=== PATIENT | female | born 1935 | race Caucasian/White ===

== ENCOUNTER → 2016-08-02 | Outpatient (CLI) | payer BC ==
[2016-08-02 12:50] LABS: PROTHROMBIN TIME (PATIENT) 21.5 SECONDS (9.0-12.0)
== END | disposition home or self-care (01) ==
LOC: C.LABWYN 12:39
PROVIDERS: ATTEND Internal Medicine
DX: I48.91 Unspecified atrial fibrillation (principal)

== ENCOUNTER → 2016-08-16 | Outpatient (CLI) | payer BC ==
[2016-08-16 12:31] LABS: INR 3.2 (0.9-1.1); PROTHROMBIN TIME (PATIENT) 36.3 SECONDS (9.0-12.0)
== END | disposition home or self-care (01) ==
LOC: C.LABWYN 10:50
PROVIDERS: ATTEND Internal Medicine
DX: Z51.81 Encounter for therapeutic drug level monitoring (principal); Z79.01 Long term (current) use of anticoagulants

== ENCOUNTER → 2016-08-23 | Outpatient (CLI) | payer BC ==
[2016-08-23 08:57] LABS: INR 1.5 (0.9-1.1); PROTHROMBIN TIME (PATIENT) 16.3 SECONDS (9.0-12.0)
== END | disposition home or self-care (01) ==
LOC: C.LABWYN 08:27
PROVIDERS: ATTEND Internal Medicine
DX: Z51.81 Encounter for therapeutic drug level monitoring (principal); Z79.01 Long term (current) use of anticoagulants

== ENCOUNTER → 2016-08-26 | Outpatient (CLI) | payer BC ==
[2016-08-26 08:37] LABS: INR 1.5 (0.9-1.1); PROTHROMBIN TIME (PATIENT) 16.7 SECONDS (9.0-12.0)
== END | disposition home or self-care (01) ==
LOC: C.LABWYN 07:47
PROVIDERS: ATTEND Internal Medicine
DX: I48.91 Unspecified atrial fibrillation (principal)

== ENCOUNTER → 2016-08-30 | Outpatient (CLI) | payer BC ==
[2016-08-30 12:46] LABS: INR 1.5 (0.9-1.1); PROTHROMBIN TIME (PATIENT) 15.8 SECONDS (9.0-12.0)
== END | disposition home or self-care (01) ==
LOC: C.LABWYN 14:06
PROVIDERS: ATTEND Internal Medicine
DX: I48.91 Unspecified atrial fibrillation (principal); Z79.01 Long term (current) use of anticoagulants

== ENCOUNTER → 2016-09-01 | Outpatient (CLI) | payer BC, OTHER ==
[2016-09-01 10:31] LABS: INR 1.4 (0.9-1.1); PROTHROMBIN TIME (PATIENT) 14.7 SECONDS (9.0-12.0)
== END | disposition home or self-care (01) ==
LOC: C.LABWYN 09:11
PROVIDERS: ATTEND Nurse Practitioner Adult Health
DX: I48.91 Unspecified atrial fibrillation (principal); Z51.81 Encounter for therapeutic drug level monitoring; Z79.01 Long term (current) use of anticoagulants

== ENCOUNTER → 2016-09-02 | Outpatient (CLI) | payer BC, OTHER ==
[2016-09-02 08:25] LABS: INR 1.4 (0.9-1.1); PROTHROMBIN TIME (PATIENT) 14.8 SECONDS (9.0-12.0)
== END | disposition home or self-care (01) ==
LOC: C.LABWYN 07:41
PROVIDERS: ATTEND Nurse Practitioner Adult Health
DX: I48.91 Unspecified atrial fibrillation (principal)

== ENCOUNTER → 2016-09-05 | Outpatient (CLI) | payer BC, OTHER ==
[2016-09-05 08:09] LABS: INR 1.4 (0.9-1.1); PROTHROMBIN TIME (PATIENT) 15.4 SECONDS (9.0-12.0)
== END | disposition home or self-care (01) ==
LOC: C.LABWYN 07:43
PROVIDERS: ATTEND Internal Medicine
DX: Z51.81 Encounter for therapeutic drug level monitoring (principal); Z79.01 Long term (current) use of anticoagulants; I48.91 Unspecified atrial fibrillation

== ENCOUNTER → 2016-09-08 | Outpatient (CLI) | payer BC, OTHER ==
[2016-09-08 13:10] LABS: INR 1.7 (0.9-1.1); PROTHROMBIN TIME (PATIENT) 19.1 SECONDS (9.0-12.0)
== END | disposition home or self-care (01) ==
LOC: C.LABWYN 08:00
PROVIDERS: ATTEND Internal Medicine
DX: Z51.81 Encounter for therapeutic drug level monitoring (principal); Z79.01 Long term (current) use of anticoagulants

== ENCOUNTER → 2016-09-13 | Outpatient (CLI) | payer BC, OTHER ==
[2016-09-13 09:11] LABS: INR 3.4 (0.9-1.1); PROTHROMBIN TIME (PATIENT) 38.6 SECONDS (9.0-12.0)
== END | disposition home or self-care (01) ==
LOC: C.LABWYN 08:43
PROVIDERS: ATTEND Internal Medicine
DX: I48.91 Unspecified atrial fibrillation (principal)

== ENCOUNTER → 2016-09-16 | Outpatient (CLI) | payer BC, OTHER ==
[2016-09-16 09:25] LABS: INR 1.5 (0.9-1.1); PROTHROMBIN TIME (PATIENT) 16.3 SECONDS (9.0-12.0)
== END | disposition home or self-care (01) ==
LOC: C.LABWYN 08:14
PROVIDERS: ATTEND Internal Medicine
DX: I48.91 Unspecified atrial fibrillation (principal)

== ENCOUNTER → 2016-09-22 | Outpatient (CLI) | payer BC, OTHER ==
[2016-09-22 12:36] LABS: INR 1.9 (0.9-1.1)
== END | disposition home or self-care (01) ==
LOC: C.LABWYN 12:39
PROVIDERS: ATTEND Internal Medicine
DX: I48.91 Unspecified atrial fibrillation (principal)

== ENCOUNTER → 2016-10-06 | Outpatient (CLI) | payer BC, OTHER ==
[2016-10-06 13:02] LABS: INR 1.7 (0.9-1.1); PROTHROMBIN TIME (PATIENT) 18.8 SECONDS (9.0-12.0)
--- NOTE | 2016-10-11 06:26 | CODING QUERY NO DIAGNOSIS ---
TREATMENT RENDERED WITHOUT A DIAGNOSIS To promote full compliance with coding requirements relating to patient care, physician participation is requested in all cases of electromechanical equipment assembler uncertainty. Please assist us with providing a diagnosis/symptom for the test(s) below: A diagnosis/symptom was not documented on your Order. A valid diagnosis/symptom is required to bill all insurances. Please remember that we are unable to code a diagnosis of rule out, probable, possible, questionable, or suspected. Tests that require a diagnosis: DOS: 10/06/16 * PT/INR DIAGNOSIS: * TSH DIAGNOSIS: Provider Signature: Date: Thank you Lilia Demarco [employer] Information Management Once completed, please kindly fax back to [phone] For questions please call [phone]
== END | disposition home or self-care (01) ==
LOC: C.LABWYN 12:55
PROVIDERS: ATTEND Internal Medicine
DX: I48.91 Unspecified atrial fibrillation (principal); E03.9 Hypothyroidism, unspecified

== ENCOUNTER → 2017-01-17 | Outpatient (CLI) | payer BC, OTHER ==
[2017-01-17 11:55] LABS: INR 1.7 (0.9-1.1); PROTHROMBIN TIME (PATIENT) 18.5 SECONDS (9.0-12.0)
== END | disposition home or self-care (01) ==
LOC: C.LABWYN 10:58
PROVIDERS: ATTEND Internal Medicine
DX: Z79.01 Long term (current) use of anticoagulants (principal)

== ENCOUNTER → 2017-01-19 | Outpatient (CLI) | payer BC, OTHER ==
[2017-01-19 08:54] LABS: INR 1.8 (0.9-1.1); PROTHROMBIN TIME (PATIENT) 20.3 SECONDS (9.0-12.0)
== END | disposition home or self-care (01) ==
LOC: C.LABWYN 08:11
PROVIDERS: ATTEND Internal Medicine
DX: Z51.81 Encounter for therapeutic drug level monitoring (principal); Z79.01 Long term (current) use of anticoagulants

== ENCOUNTER → 2017-01-24 | Outpatient (CLI) | payer BC, OTHER ==
[2017-01-24 10:18] LABS: INR 1.7 (0.9-1.1); PROTHROMBIN TIME (PATIENT) 18.3 SECONDS (9.0-12.0)
== END | disposition home or self-care (01) ==
LOC: C.LABWYN 08:03
PROVIDERS: ATTEND Internal Medicine
DX: Z51.81 Encounter for therapeutic drug level monitoring (principal); Z79.01 Long term (current) use of anticoagulants

== ENCOUNTER → 2017-02-09 | Outpatient (CLI) | payer OTHER ==
[2017-02-09 08:41] LABS: INR 1.9 (0.9-1.1); PROTHROMBIN TIME (PATIENT) 20.7 SECONDS (9.0-12.0)
== END | disposition home or self-care (01) ==
LOC: C.LABWYN 07:43
PROVIDERS: ATTEND Internal Medicine
DX: Z79.01 Long term (current) use of anticoagulants (principal)

== ENCOUNTER → 2017-03-14 | Outpatient (CLI) | payer OTHER ==
[2017-03-14 10:59] LABS: INR 1.3 (0.9-1.1); PROTHROMBIN TIME (PATIENT) 14.1 SECONDS (9.0-12.0)
== END | disposition home or self-care (01) ==
LOC: C.LABWYN 10:35
PROVIDERS: ATTEND Internal Medicine
DX: Z51.81 Encounter for therapeutic drug level monitoring (principal); Z79.01 Long term (current) use of anticoagulants

== ENCOUNTER → 2017-03-16 | Outpatient (CLI) | payer OTHER ==
[2017-03-16 09:58] LABS: INR 1.3 (0.9-1.1); PROTHROMBIN TIME (PATIENT) 14.2 SECONDS (9.0-12.0)
== END | disposition home or self-care (01) ==
LOC: C.LABWYN 09:37
PROVIDERS: ATTEND Internal Medicine
DX: I48.91 Unspecified atrial fibrillation (principal)

== ENCOUNTER → 2017-03-18 | Outpatient (CLI) | payer OTHER ==
[2017-03-18 11:16] LABS: INR 1.5 (0.9-1.1); PROTHROMBIN TIME (PATIENT) 16.1 SECONDS (9.0-12.0)
== END | disposition home or self-care (01) ==
LOC: C.LAB 09:30
PROVIDERS: ATTEND Internal Medicine
DX: I48.91 Unspecified atrial fibrillation (principal)

== ENCOUNTER → 2017-03-20 | Outpatient (CLI) | payer OTHER ==
[2017-03-20 09:59] LABS: INR 1.9 (0.9-1.1)
== END | disposition home or self-care (01) ==
LOC: C.LABWYN 09:36
PROVIDERS: ATTEND Internal Medicine
DX: I48.91 Unspecified atrial fibrillation (principal)

== ENCOUNTER → 2017-03-21 | Outpatient (CLI) | payer OTHER ==
[2017-03-21 08:38] LABS: INR 2.5 (0.9-1.1); PROTHROMBIN TIME (PATIENT) 28.1 SECONDS (9.0-12.0)
== END | disposition home or self-care (01) ==
LOC: C.LABWYN 07:36
PROVIDERS: ATTEND Internal Medicine
DX: I48.91 Unspecified atrial fibrillation (principal)

== ENCOUNTER → 2017-03-23 | Outpatient (CLI) | payer OTHER ==
[2017-03-23 08:50] LABS: INR 2.6 (0.9-1.1)
== END | disposition home or self-care (01) ==
LOC: C.LABWYN 08:10
PROVIDERS: ATTEND Internal Medicine
DX: I48.91 Unspecified atrial fibrillation (principal)

== ENCOUNTER → 2017-03-28 | Outpatient (CLI) | payer OTHER ==
[2017-03-28 08:06] LABS: INR 2.7 (0.9-1.1); PROTHROMBIN TIME (PATIENT) 30.1 SECONDS (9.0-12.0)
== END | disposition home or self-care (01) ==
LOC: C.LABWYN 07:34
PROVIDERS: ATTEND Internal Medicine
DX: I48.91 Unspecified atrial fibrillation (principal)

== ENCOUNTER → 2017-03-30 | Outpatient (CLI) | payer OTHER ==
[2017-03-30 08:23] LABS: INR 2.8 (0.9-1.1); PROTHROMBIN TIME (PATIENT) 31.8 SECONDS (9.0-12.0)
--- NOTE | 2017-04-08 11:51 | CODING QUERY NO DIAGNOSIS ---
TREATMENT RENDERED WITHOUT A DIAGNOSIS To promote full compliance with coding requirements relating to patient care, physician participation is requested in all cases of decorating instructor uncertainty. Please assist us with providing a diagnosis/symptom for the test(s) below: A diagnosis/symptom was not documented on your Order. A valid diagnosis/symptom is required to bill all insurances. Please remember that we are unable to code a diagnosis of rule out, probable, possible, questionable, or suspected. Tests that require a diagnosis: * PT/INR DIAGNOSIS: Provider Signature: Date: Thank you Haley Lowry [employer] Information Management Once completed, please kindly fax back to [phone] For questions please call [phone]
== END | disposition home or self-care (01) ==
LOC: C.LABWYN 07:54
PROVIDERS: ATTEND Internal Medicine
DX: I48.91 Unspecified atrial fibrillation (principal)

== ENCOUNTER → 2017-04-04 | Outpatient (CLI) | payer OTHER ==
[2017-04-04 10:52] LABS: BLOOD UREA NITROGEN 18 mg/dl (7-18); BUN/CREATININE RATIO 15.2 (10-20); CALCIUM 8.5 mg/dl (8.5-10.1); CARBON DIOXIDE 33 mmol/L (21-32); CHLORIDE 103 mmol/L (98-107); CHOLESTEROL 180 mg/dl (0-200); GLUCOSE 90 mg/dl (70-99); SODIUM 141 mmol/L (136-145)
[2017-04-04 10:55] LABS: CHOLESTEROL/HDL RATIO 3.5; HDL CHOLESTEROL 52 mg/dl; LDL CHOLESTEROL CALCULATED 93 mg/dl; TRIGLYCERIDES 176 mg/dl (0-150); VERY LOW DENSITY LIPOPROT CALC 35 mg/dl
== END | disposition home or self-care (01) ==
LOC: C.LABWYN 09:55
PROVIDERS: ATTEND Internal Medicine
DX: I48.91 Unspecified atrial fibrillation (principal); I10 Essential (primary) hypertension

== ENCOUNTER → 2017-04-11 | Outpatient (CLI) | payer OTHER ==
[2017-04-11 09:12] LABS: INR 1.6 (0.9-1.1)
== END | disposition home or self-care (01) ==
LOC: C.LABWYN 08:32
PROVIDERS: ATTEND Internal Medicine
DX: Z79.01 Long term (current) use of anticoagulants (principal)

== ENCOUNTER → 2017-04-18 | Outpatient (CLI) | payer OTHER ==
[2017-04-18 08:46] LABS: PROTHROMBIN TIME (PATIENT) 21.9 SECONDS (9.0-12.0)
== END | disposition home or self-care (01) ==
LOC: C.LABWYN 08:10
PROVIDERS: ATTEND Internal Medicine
DX: Z51.81 Encounter for therapeutic drug level monitoring (principal); Z79.01 Long term (current) use of anticoagulants

== ENCOUNTER → 2017-05-09 | Outpatient (CLI) | payer OTHER ==
[2017-05-09 09:01] LABS: INR 2.1 (0.9-1.1)
== END | disposition home or self-care (01) ==
LOC: C.LABWYN 08:27
PROVIDERS: ATTEND Internal Medicine
DX: I48.91 Unspecified atrial fibrillation (principal)

== ENCOUNTER → 2017-06-15 | Outpatient (CLI) | payer OTHER ==
[2017-06-15 09:15] LABS: INR 2.1 (0.9-1.1); PROTHROMBIN TIME (PATIENT) 22.9 SECONDS (9.0-12.0)
== END | disposition home or self-care (01) ==
LOC: C.LABWYN 08:08
PROVIDERS: ATTEND Internal Medicine
DX: I48.91 Unspecified atrial fibrillation (principal)

== ENCOUNTER → 2017-07-04 | Outpatient (CLI) | payer OTHER ==
[2017-07-04 08:32] LABS: INR 2.2 (0.9-1.1)
--- NOTE | 2017-07-07 08:15 | CODING QUERY NO DIAGNOSIS ---
TREATMENT RENDERED WITHOUT A DIAGNOSIS : 1935 To promote full compliance with coding requirements relating to patient care, physician participation is requested in all cases of sexual assault counselor uncertainty. Please assist us with providing a diagnosis/symptom for the test(s) below: A diagnosis/symptom was not documented on your Order. A valid diagnosis/symptom is required to bill all insurances. Please remember that we are unable to code a diagnosis of rule out, probable, possible, questionable, or suspected. Tests that require a diagnosis: DOS: 07/04/17 * PROTHROMBIN TIME PRO DIAGNOSIS: Provider Signature: Date: Thank you Jackie Dyson [employer] Information Management Once completed, please kindly fax back to [phone] For questions please call [phone]
== END | disposition home or self-care (01) ==
LOC: C.LABWYN 07:57
PROVIDERS: ATTEND Internal Medicine
DX: I48.91 Unspecified atrial fibrillation (principal)

== ENCOUNTER → 2017-07-25 | Outpatient (CLI) | payer OTHER ==
[2017-07-25 09:53] LABS: INR 1.8 (0.9-1.1)
== END | disposition home or self-care (01) ==
LOC: C.LABWYN 08:58
PROVIDERS: ATTEND Internal Medicine
DX: I48.91 Unspecified atrial fibrillation (principal)

== ENCOUNTER → 2017-08-15 | Outpatient (CLI) | payer OTHER ==
[2017-08-15 09:36] LABS: INR 2.2 (0.9-1.1)
== END | disposition home or self-care (01) ==
LOC: C.LABWYN 08:10
PROVIDERS: ATTEND Internal Medicine
DX: Z51.81 Encounter for therapeutic drug level monitoring (principal); Z79.01 Long term (current) use of anticoagulants

== ENCOUNTER → 2017-09-07 | Outpatient (CLI) | payer OTHER ==
[2017-09-07 09:08] LABS: INR 2.3 (0.9-1.1)
== END | disposition home or self-care (01) ==
LOC: C.LABWYN 08:37
PROVIDERS: ATTEND Internal Medicine
DX: I48.91 Unspecified atrial fibrillation (principal); Z79.01 Long term (current) use of anticoagulants

== ENCOUNTER → 2017-09-12 | Outpatient (CLI) | payer OTHER ==
[2017-09-12 08:26] LABS: INR 1.9 (0.9-1.1)
== END | disposition home or self-care (01) ==
LOC: C.LABWYN 07:51
PROVIDERS: ATTEND Internal Medicine
DX: R06.2 Wheezing (principal); R06.02 Shortness of breath

== ENCOUNTER → 2017-09-19 | Outpatient (CLI) | payer OTHER | END | disposition home or self-care (01) | LOC: C.LABWYN 08:14 | PROVIDERS: ATTEND Internal Medicine | DX: Z51.81 Encounter for therapeutic drug level monitoring (principal); Z79.01 Long term (current) use of anticoagulants ==

== ENCOUNTER → 2017-10-10 | Outpatient (CLI) | payer OTHER ==
[2017-10-10 08:13] LABS: INR 2.5 (0.9-1.1)
== END | disposition home or self-care (01) ==
LOC: C.LABWYN 07:44
PROVIDERS: ATTEND Internal Medicine
DX: Z79.01 Long term (current) use of anticoagulants (principal)

== ENCOUNTER → 2017-10-31 | Outpatient (CLI) | payer OTHER | END | disposition home or self-care (01) | LOC: C.LABWYN 07:47 | PROVIDERS: ATTEND Internal Medicine | DX: I48.91 Unspecified atrial fibrillation (principal) ==

== ENCOUNTER → 2017-11-21 | Outpatient (CLI) | payer OTHER ==
[2017-11-21 09:47] LABS: INR 1.8 (0.9-1.1)
== END | disposition home or self-care (01) ==
LOC: C.LABWYN 09:00
PROVIDERS: ATTEND Internal Medicine

== ENCOUNTER → 2017-11-28 | Outpatient (CLI) | payer OTHER ==
--- NOTE | 2017-11-30 13:26 | CODING QUERY NO DIAGNOSIS ---
TREATMENT RENDERED WITHOUT A DIAGNOSIS To promote full compliance with coding requirements relating to patient care, physician participation is requested in all cases of undercoat sprayer uncertainty. Please assist us with providing a diagnosis/symptom for the test(s) below: A diagnosis/symptom was not documented on your Order. A valid diagnosis/symptom is required to bill all insurances. Please remember that we are unable to code a diagnosis of rule out, probable, possible, questionable, or suspected. Tests that require a diagnosis: DOS: 11/28/17 (No diagnosis on attached order) * Prothrombin Time DIAGNOSIS: Provider Signature: Date: Thank you Stefani Sherman Health Information Management Once completed, please kindly fax back to [phone] For questions please call [phone]
== END | disposition home or self-care (01) ==
LOC: C.LABWYN 07:41
PROVIDERS: ATTEND Internal Medicine
DX: I48.91 Unspecified atrial fibrillation (principal)

== ENCOUNTER → 2017-12-14 | Outpatient (CLI) | payer OTHER | END | disposition home or self-care (01) | LOC: C.LABWYN 07:56 | PROVIDERS: ATTEND Internal Medicine | DX: I48.91 Unspecified atrial fibrillation (principal) ==

== ENCOUNTER → 2018-02-20 | Outpatient (CLI) | payer OTHER ==
[2018-02-20 09:01] LABS: INR 2.3 (0.9-1.1)
--- NOTE | 2018-03-01 11:19 | CODING QUERY NO DIAGNOSIS ---
TREATMENT RENDERED WITHOUT A DIAGNOSIS To promote full compliance with coding requirements relating to patient care, physician participation is requested in all cases of line puller uncertainty. Please assist us with providing a diagnosis/symptom for the test(s) below: A diagnosis/symptom was not documented on your Order. A valid diagnosis/symptom is required to bill all insurances. Please remember that we are unable to code a diagnosis of rule out, probable, possible, questionable, or suspected. Tests that require a diagnosis: DOS: 02/20/18 (Attached orders are missing diagnosis) * Prothrombin Time Profile DIAGNOSIS: Provider Signature: Date: Thank you Stefani Sherman Health Information Management Once completed, please kindly fax back to [phone] For questions please call [phone]
== END | disposition home or self-care (01) ==
LOC: C.LABWYN 08:25
PROVIDERS: ATTEND Internal Medicine
DX: I48.91 Unspecified atrial fibrillation (principal); Z79.01 Long term (current) use of anticoagulants

== ENCOUNTER → 2018-03-20 | Outpatient (CLI) | payer OTHER ==
[2018-03-20 08:36] LABS: INR 2.1 (0.9-1.1)
== END | disposition home or self-care (01) ==
LOC: C.LABWYN 08:03
PROVIDERS: ATTEND Internal Medicine
DX: I48.91 Unspecified atrial fibrillation (principal)

== ENCOUNTER 2022-02-19 13:31 | Inpatient (IN) ==
[2022-02-19 14:06] LABS: Basophils # (auto) 0.04 K/uL (0-0.2); Basophils % (auto) 0.5 %; Hematocrit (blood only) 43.2 % (34.1-44.9); Hemoglobin 12.6 g/dl (12.0-16.0); Immature Granulocytes # (auto) 0.02 K/uL (0.00-0.02); Immature Granulocytes % (auto) 0.2 %; Lymphocytes # (auto) 1.94 K/uL (1.2-3.4); Lymphocytes % (auto) 23.9 %; Mean Corpuscular Hgb Conc 29.2 g/dL (32.0-36.0); Mean Corpuscular Volume 89.1 fL (80.0-100.0); Monocytes # (auto) 1.04 K/uL (0.24-0.82); Monocytes % (auto) 12.8 %; Neutrophils # (auto) 5.09 K/uL (1.4-6.5); Neutrophils % (auto) 62.6 %; Platelet Count 187 K/uL (130-400); RDW Coefficient of Variation 17.4 % (11.5-14.5); RDW Standard Deviation 55.9 fL (36.4-46.3); Red Blood Count 4.85 M/uL (3.93-5.22); White Blood Count 8.13 K/ul (4.8-10.8)
--- NOTE | 2022-02-19 14:06 | Emergency Department Note ---
Impression & Plan Pulmonary edema, Elevated troponin, Acute non-ST elevation myocardial infarction (NSTEMI) ED Provider Note NAME: ARMEN BATES AGE: 87 SEX: F : 1935 ARRIVES VIA: Ambulance INFORMANT: Patient, EMS ED PROVIDER(S): Jcarlos Delgado DO CHIEF COMPLAINT: Shortness of breath HPI: The patient is an 87-year-old female who presented to the emergency department by ambulance for an evaluation of shortness of breath. The patient has been having ongoing symptoms over the course of the last few weeks. She presented to the emergency department from her personal shelter. She has a history of COVID-19 infection and ever since that time has been on oxygen. She normally wears 2 to 4 L nasal cannula. It had to increase her nasal cannula oxygen significantly over the last 24 hours. She was found to have saturations in the low 80s on her usual oxygen. She denies having any chest pain but she does describe a nonproductive cough and lower extremity swelling. She states symptoms are worsened with exertion as well as lying flat. The patient denies having any hemoptysis. She is been compliant with her other outpatient med ications which include warfarin. The patient has also been using bronchodilator therapy. She received Solu-Medrol and a DuoNeb prior to arrival. ROS: See above HPI for pertinent positives & negatives. A total of 10 systems reviewed and were otherwise negative. PAST MEDICAL HISTORY: See Below PAST SURGICAL HISTORY: See Below FAMILY HISTORY: See Below SOCIAL HISTORY: See Below HOME MEDICATIONS: See Below ALLERGIES: See Below VITALS: See Below PHYSICAL EXAMINATION: GENERAL: The patient is awake and alert. She is somewhat anxious appearing. EYES: The conjunctivae are clear. The pupils are round and reactive. EARS, NOSE, MOUTH AND THROAT: The nose is without any evidence of any deformity. NECK: The neck is nontender and supple. RESPIRATORY: Diminished breath sounds are noted throughout. Rales are noted at both bases. There was conversational dyspnea appreciated. CARDIOVASCULAR: Irregular heart sounds were noted auscultation. No definite murmur was noted. GASTROINTESTINAL: The abdomen is soft. Abdomen is nontender. MUSCULOSKELETAL/EXTREMITIES: There is no evidence of gross deformity full range of motion is noted in the hips and shoulders. SKIN: Skin is warm and dry. Trace pedal edema was noted bilaterally. NEUROLOGIC: Patient is awake alert and oriented x3. MEDICAL DECISION MAKING: The patient is an 87-year-old female who presented to the emergency department for an evaluation of difficulty breathing. The patient recently had COVID-19. She does wear oxygen normally at her personal shelter. They have had to increase her supplemental oxygen recently. The patient was found to have no significant change on her EKG compared to previous but her cardiac biomarker was elevated. I discussed the patient's laboratory and radiographic studies with her. She was treated with IV Lasix IV Decadron and IV antibiotics in the emergency department. Her chest x-ray could be consistent with infection ho wever given her overall picture I feel like this is more likely consistent with pulmonary edema from a cardiogenic source. The patient was feeling much better on subsequent reevaluation. She was also treated with aspirin. Triage Nursing notes reviewed. Prior medical records reviewed Vital Signs: reviewed and remarkable for hypoxia and hypertension. Differential diagnosis: Reactive airway disease, pneumonia, pneumothorax, COPD, CHF, infections, cardiac ischemia, pulmonary embolism, musculoskeletal, gastrointestinal, as well as other pathologies. ER treatment provided: See below Diagnostics interpreted by me: ECG: EKG was obtained in the emergency department. My interpretation is atrial fibrillation at 77 bpm. Poor R wave progression was noted. There is no acute ST segment abnormalities noted. This was compared to a tracing from July 22, 2020. No changes were noted. Cardiac Monitoring: An order was placed for continuous cardiac monitoring. The monitor shows a rate of 84 bpm with atrial fibrillation. Laboratory studies: As stated above and show below. Imaging studies: See below Consultation(s): I discussed this case with Dr. Mccarthy is on-call for the [facility] hospitalist group. ED COURSE: Procedures: none Critical Care: I have personally spent greater than 50 minutes of critical care time in the direct management of this patient. This includes bedside care, interpretation of diagnostic studies, and testing, discussion with consultants, patient, and family members, and other required patient management activities. This 50 minutes is in excess of all separately billable procedures. Past Med/Surg History Medical History Asthma Atrial fibrillation CKD (chronic kidney disease) stage 3, GFR 30-59 ml/min Depression with anxiety Elevated troponin HLD (hyperlipidemia) HTN (hypertension) Surgical History History of appendectomy History of foot surgery R foot Osteotomy History of partial hysterectomy Family History Sister Breast cancer Mother Hypertension Social History Smoking Status: Former smoker Second Hand Exposure: No; Hx Alcohol Use: No Hx Substance Use: No Preferred Language: Greenlandic Communication Ability: Effective Beliefs That Will Affect Care: None marital status: / Current Living Situation: Alf Current Living Situation Comment: Jess Feels Safe at Home: Yes Assistive Devices: Walker Allergies Allergies Allergy/AdvReac Type Severity Reaction Status Date / Time levofloxacin [From Levaquin] Allergy Intermediate drug Verified 02/19/22 16:40 eruption BLE atorvastatin [From Lipitor] Allergy Unknown Unknown Unverified 08/28/18 12:43 doxycycline Allergy Unknown Unknown Unverified 08/28/18 12:43 penicillin G Allergy Unknown Unknown Unverified 08/28/18 12:43 Sulfa (Sulfonamide Allergy Unknown Unknown Unverified 08/28/18 12:43 Antibiotics) Home Meds Home Medications Medication Instructions Recorded Confirmed cholecalciferol (vitamin D3) 125 5,000 unit PO QAM 08/28/18 02/19/22 mcg (5,000 unit) tablet (Vitamin D3) folic acid 1 mg tablet 1 mg PO QAM 08/28/18 02/19/22 furosemide 20 mg tablet 20 mg PO BID 08/28/18 02/19/22 levothyroxine 50 mcg tablet 50 mcg PO QAM 08/28/18 02/19/22 lisinopril 10 mg tablet 5 mg PO QAM 08/28/18 02/19/22 pravastatin 40 mg tablet 40 mg PO HS 08/28/18 02/19/22 quetiapine 50 mg tablet 50 mg PO BID 08/28/18 02/19/22 venlafaxine 150 mg 150 mg PO QAM 08/28/18 02/19/22 capsule,extended release 24 hr venlafaxine 75 mg capsule,extended 75 mg PO QAM 08/28/18 02/19/22 release 24 hr guaifenesin 600 mg tablet, 600 mg PO BID 07/22/20 02/19/22 extended release 12 hr (Mucinex) acetaminophen 325 mg tablet 650 mg PO Q4 PRN Pain 02/19/22 02/19/22 biotin 10,000 mcg disintegrating 10,000 mcg PO DAILY 02/19/22 02/19/22 tablet dextromethorphan-guaifenesin 10 5 ml PO Q4H PRN Cough 02/19/22 02/19/22 mg-100 mg/5 mL oral syrup (Tussin DM) ipratropium 0.5 mg-albuterol 3 mg 3 ml inhalation Q6H PRN Shortness 02/19/22 02/19/22 (2.5 mg base)/3 mL nebulization Of Breath Or Wheezing soln ipratropium 20 mcg-albuterol 100 1 puff inhalation .EVERY 2 HOURS 02/19/22 02/19/22 mcg/actuation mist for inhalation PRN Shortness Of Breath (Combivent Respimat) ipratropium 20 mcg-albuterol 100 1 puff inhalation BID 02/19/22 02/19/22 mcg/actuation mist for inhalation (Combivent Respimat) menthol 16 % topical liquid (Icy 1 ea topical BID PRN knee pain 02/19/22 02/19/22 Hot No Mess) metoprolol tartrate 25 mg tablet 12.5 mg PO BID 02/19/22 02/19/22 warfarin 4 mg tablet 4 mg PO QPM 02/19/22 02/19/22 Results & Data (ED) Vital Signs Vital Signs - 24 hr 02/19/22 13:24 02/19/22 13:54 02/19/22 13:54 Temperature 36.9 C Temperature Source Oral Pulse Rate 84 Pulse Rate [Apical] 82 Respiratory Rate 21 21 Respiratory Effort / Characteristics Non-Labored Respiratory Depth Normal Respiratory Pattern Regular Blood Pressure 197/99 H Blood Pressure [Left Arm] 197/99 H Blood Pressure Mean 131 Blood Pressure Mean [Left Arm] 131 Pulse Oximetry 99 94 94 Oxygen Delivery Method Nasal Cannula Nasal Cannula Nasal Cannula Oxygen Flow Rate 4 4 4 Sepsis Recent Fever Within 48 Hours No Sepsis New/Unexplained Change in Mental Status N/A Sepsis Action Taken by Nursing No Action Required 02/19/22 13:54 02/19/22 16:30 Temperature Temperature Source Pulse Rate 84 Pulse Rate [Apical] 94 H Respiratory Rate 21 21 Respiratory Effort / Characteristics Respiratory Depth Respiratory Pattern Blood Pressure Blood Pressure [Left Arm] 178/89 H Blood Pressure Mean Blood Pressure Mean [Left Arm] 118 Pulse Oximetry 94 92 Oxygen Delivery Method Nasal Cannula Nasal Cannula Oxygen Flow Rate 4 4 Sepsis Recent Fever Within 48 Hours Sepsis New/Unexplained Change in Mental Status Sepsis Action Taken by Alf Medications Current Medication List: was personally reviewed by me Laboratory Data Attestation: I reviewed the patient's lab results. Result diagrams: 02/19/22 13:49 02/19/22 13:49 Lab Results 02/19/22 02/19/22 02/19/22 Range/Units 13:43 13:49 13:49 WBC 8.13 (4.8-10.8) K/ul RBC 4.85 (3.93-5.22) M/uL Hgb 12.6 (12.0-16.0) g/dl Hct 43.2 (34.1-44.9) % MCV 89.1 (80.0-100.0) fL MCH 26.0 (25.0-34.0) pg MCHC 29.2 L (32.0-36.0) g/dL RDW Std Deviation 55.9 H (36.4-46.3) fL RDW Coeff of Bozena 17.4 H (11.5-14.5) % Plt Count 187 (130-400) K/uL MPV 10.0 (9.4-12.3) fL Immature Gran % (Auto) 0.2 % Neut % (Auto) 62.6 % Lymph % (Auto) 23.9 % Nelson % (Auto) 12.8 % Eos % (Auto) 0.0 % Baso % (Auto) 0.5 % Neut # (Auto) 5.09 (1.4-6.5) K/uL Lymph # (Auto) 1.94 (1.2-3.4) K/uL Nelson # (Auto) 1.04 H (0.24-0.82) K/uL Eos # (Auto) 0.00 (0-0.50) K/uL Baso # (Auto) 0.04 (0-0.2) K/uL Immature Gran # (Auto) 0.02 (0.00-0.02) K/uL PT 25.9 H (9.0-12.0) Seconds INR 2.6 H (0.9-1.1) APTT 32.5 H (21.0-31.0) Seconds PTT Ratio 1.2 VBG pH (7.36-7.41) VBG pCO2 (38-50) mmHg VBG pO2 mmHg VBG HCO3 mmol/L VBG O2 Saturation % VBG Base Excess mEq/L Sodium (136-145) mmol/L Potassium (3.5-5.1) mmol/L Chloride (98-107) mmol/L Carbon Dioxide (21-32) mmol/L Anion Gap (3-11) BUN (6-23) mg/dl Creatinine (0.6-1.2) mg/dl Est Cr Clr Drug Dosing ml/min Est GFR ( Amer) ml/min Est GFR (Non-Af Amer) ml/min BUN/Creatinine Ratio (10-20) Glucose (70-99(Fasting)) mg/dl Calcium (8.5-10.1) mg/dl Magnesium (1.7-2.4) mg/dl Total Bilirubin (0.2-1.0) mg/dl AST (13-39) U/L ALT (7-52) U/L Alkaline Phosphatase (34-104) U/L Troponin I High Sens (0-14) pg/ml B-Natriuretic Peptide (0-100) pg/ml Total Protein (6.0-8.3) gm/dl Albumin (3.4-5.0) gm/dl Globulin (2.5-4.0) gm/dl Albumin/Globulin Ratio (0.9-2) Procalcitonin (0-0.5) ng/ml SARS-CoV-2 (PCR) NEGATIVE (Negative) Influenza Type A (PCR) Negative (Neg) Influenza Type B (PCR) Negative (Neg) RSV (RT-PCR) Negative (Neg) 02/19/22 02/19/22 02/19/22 Range/Units 13:49 15:10 15:10 WBC (4.8-10.8) K/ul RBC (3.93-5.22) M/uL Hgb (12.0-16.0) g/dl Hct (34.1-44.9) % MCV (80.0-100.0) fL MCH (25.0-34.0) pg MCHC (32.0-36.0) g/dL RDW Std Deviation (36.4-46.3) fL RDW Coeff of Bozena (11.5-14.5) % Plt Count (130-400) K/uL MPV (9.4-12.3) fL Immature Gran % (Auto) % Neut % (Auto) % Lymph % (Auto) % Nelson % (Auto) % Eos % (Auto) % Baso % (Auto) % Neut # (Auto) (1.4-6.5) K/uL Lymph # (Auto) (1.2-3.4) K/uL Nelson # (Auto) (0.24-0.82) K/uL Eos # (Auto) (0-0.50) K/uL Baso # (Auto) (0-0.2) K/uL Immature Gran # (Auto) (0.00-0.02) K/uL PT (9.0-12.0) Seconds INR (0.9-1.1) APTT (21.0-31.0) Seconds PTT Ratio VBG pH 7.38 (7.36-7.41) VBG pCO2 73 H (38-50) mmHg VBG pO2 49 mmHg VBG HCO3 43 mmol/L VBG O2 Saturation 76.9 % VBG Base Excess 14.5 mEq/L Sodium 141 (136-145) mmol/L Potassium 4.2 (3.5-5.1) mmol/L Chloride 98 (98-107) mmol/L Carbon Dioxide 36 H (21-32) mmol/L Anion Gap 7 (3-11) BUN 24 H (6-23) mg/dl Creatinine 1.34 H (0.6-1.2) mg/dl Est Cr Clr Drug Dosing 37.2 ml/min Est GFR ( Amer) 41.8 ml/min Est GFR (Non-Af Amer) 36.0 ml/min BUN/Creatinine Ratio 17.9 (10-20) Glucose 112 H (70-99(Fasting)) mg/dl Calcium 9.1 (8.5-10.1) mg/dl Magnesium 2.2 (1.7-2.4) mg/dl Total Bilirubin 0.6 (0.2-1.0) mg/dl AST 20 (13-39) U/L ALT 16 (7-52) U/L Alkaline Phosphatase 71 (34-104) U/L Troponin I High Sens 399.5 H* (0-14) pg/ml B-Natriuretic Peptide 1754 H (0-100) pg/ml Total Protein 7.0 (6.0-8.3) gm/dl Albumin 3.7 (3.4-5.0) gm/dl Globulin 3.3 (2.5-4.0) gm/dl Albumin/Globulin Ratio 1.1 (0.9-2) Procalcitonin (0-0.5) ng/ml SARS-CoV-2 (PCR) (Negative) Influenza Type A (PCR) (Neg) Influenza Type B (PCR) (Neg) RSV (RT-PCR) (Neg) 02/19/22 Range/Units 15:15 WBC (4.8-10.8) K/ul RBC (3.93-5.22) M/uL Hgb (12.0-16.0) g/dl Hct (34.1-44.9) % MCV (80.0-100.0) fL MCH (25.0-34.0) pg MCHC (32.0-36.0) g/dL RDW Std Deviation (36.4-46.3) fL RDW Coeff of Bozena (11.5-14.5) % Plt Count (130-400) K/uL MPV (9.4-12.3) fL Immature Gran % (Auto) % Neut % (Auto) % Lymph % (Auto) % Nelson % (Auto) % Eos % (Auto) % Baso % (Auto) % Neut # (Auto) (1.4-6.5) K/uL Lymph # (Auto) (1.2-3.4) K/uL Nelson # (Auto) (0.24-0.82) K/uL Eos # (Auto) (0-0.50) K/uL Baso # (Auto) (0-0.2) K/uL Immature Gran # (Auto) (0.00-0.02) K/uL PT (9.0-12.0) Seconds INR (0.9-1.1) APTT (21.0-31.0) Seconds PTT Ratio VBG pH (7.36-7.41) VBG pCO2 (38-50) mmHg VBG pO2 mmHg VBG HCO3 mmol/L VBG O2 Saturation % VBG Base Excess mEq/L Sodium (136-145) mmol/L Potassium (3.5-5.1) mmol/L Chloride (98-107) mmol/L Carbon Dioxide (21-32) mmol/L Anion Gap (3-11) BUN (6-23) mg/dl Creatinine (0.6-1.2) mg/dl Est Cr Clr Drug Dosing ml/min Est GFR ( Amer) ml/min Est GFR (Non-Af Amer) ml/min BUN/Creatinine Ratio (10-20) Glucose (70-99(Fasting)) mg/dl Calcium (8.5-10.1) mg/dl Magnesium (1.7-2.4) mg/dl Total Bilirubin (0.2-1.0) mg/dl AST (13-39) U/L ALT (7-52) U/L Alkaline Phosphatase (34-104) U/L Troponin I High Sens (0-14) pg/ml B-Natriuretic Peptide (0-100) pg/ml Total Protein (6.0-8.3) gm/dl Albumin (3.4-5.0) gm/dl Globulin (2.5-4.0) gm/dl Albumin/Globulin Ratio (0.9-2) Procalcitonin < 0.05 (0-0.5) ng/ml SARS-CoV-2 (PCR) (Negative) Influenza Type A (PCR) (Neg) Influenza Type B (PCR) (Neg) RSV (RT-PCR) (Neg) Administered Medications Discontinued Medications Aspirin (Aspirin Chew 324 Mg) 324 mg PO NOW STA Stop: 02/19/22 15:19 Last Admin: 02/19/22 15:21 Dose: 324 mg Documented By: HNB Dexamethasone Sodium Phosphate (DexamethasonePf 10 Mg/Ml Vial) 10 mg IV NOW ONE Stop: 02/19/22 15:16 Last Admin: 02/19/22 15:22 Dose: 10 mg Documented By: HNB Furosemide (Furosemide 40 Mg/4 Ml Vial) 40 mg IV ONE ONE Stop: 02/19/22 15:16 Last Admin: 02/19/22 15:22 Dose: 40 mg Documented By: HNB Cefepime HCl (Maxipime) 2,000 mg in 20 mls @ 5 mls/min IV NOW STA; Protocol Stop: 02/19/22 15:18 Last Admin: 02/19/22 15:22 Dose: 5 mls/min Documented By: HNB Imaging Data Radiologist's Impression: Chest X-Ray 02/19/22 13:54 SINGLE VIEW CHEST CLINICAL HISTORY: Dyspnea. FINDINGS: An AP, portable, upright chest radiograph is compared to study dated 07/22/2020. The examination is degraded by portable technique and apical lordotic positioning. The heart is enlarged noting atherosclerotic calcification of the thoracic aorta. There is pulmonary vascular congestion. There are bilateral airspace opacities. Small pleural effusions are noted with dependent consolidation. No pneumothorax is seen. The skeletal structures are osteopenic. The bony thorax is grossly intact. IMPRESSION: 1. Cardiomegaly with evidence of congestive failure. 2. Bilateral airspace opacities likely represent pulmonary edema. Correlate clinically for evidence of a superimposed infectious/inflammatory pneumonitis. Radiographic follow-up to resolution is recommended. 3. Small pleural effusions. ACT 112: Negative or not required by law. Electronically signed by: Desmond Maldonado M.D. 02/19/2022 2:48 PM Discharge Plan Visit Data Chief Complaint: Shortness of Breath/Dyspnea Stated Complaint: SOB ED Provider: Jcarlos Delgado Discharge Problem: Pulmonary edema, Elevated troponin, Acute non-ST elevation myocardial in farction (NSTEMI) Patient Disposition: Being Evaluated by Hospitalist Forms Stand Alone Forms: [facility] Prescriptions Prescriptions: No Action guaifenesin [Mucinex] 600 mg Tablet Extended Release 12hr 600 mg PO BID venlafaxine 75 mg capsule,extended release 24hr 75 mg PO QAM Rx Instructions: take with 150mg to make 225mg total pravastatin 40 mg tablet 40 mg PO HS venlafaxine 150 mg capsule,extended release 24hr 150 mg PO QAM Rx Instructions: take with 75mg to make 225mg total levothyroxine 50 mcg tablet 50 mcg PO QAM lisinopril 10 mg tablet 5 mg PO QAM folic acid 1 mg Tablet 1 mg PO QAM furosemide 20 mg tablet 20 mg PO BID quetiapine 50 mg tablet 50 mg PO BID cholecalciferol (vitamin D3) [Vitamin D3] 5,000 unit Tablet 5,000 unit PO QAM warfarin 4 mg tablet 4 mg PO QPM metoprolol tartrate 25 mg tablet 12.5 mg PO BID Rx Instructions: 1/2 tablet dose Combivent Respimat 20-100 mcg/actuation mist 1 puff INHALATION BID biotin 10,000 mcg Tablet,Disintegrating 10,000 mcg PO DAILY acetaminophen 325 mg Tablet 650 mg PO Q4 MDD 3g PRN (Reason: Pain) ipratropium-albuterol 0.5 mg-3 mg(2.5 mg base)/3 mL Solution For Nebulization 3 ml INHALATION Q6H PRN (Reason: Shortness Of Breath Or Wheezing) Combivent Respimat 20-100 mcg/actuation mist 1 puff INHALATION .EVERY 2 HOURS PRN (Reason: Shortness Of Breath) dextromethorphan-guaifenesin [Tussin DM] 10-100 mg/5 mL Syrup 5 ml PO Q4H PRN (Reason: Cough) Icy Hot No Mess 16 % Liquid 1 ea TOPICAL BID PRN (Reason: knee pain) Referrals Referrals: Giana Sanchez [Primary Care Provider] -
[2022-02-19 14:26] LABS: INR 2.6 (0.9-1.1); Partial Thromboplastin Ratio 1.2; Partial Thromboplastin Time 32.5 Seconds (21.0-31.0); Prothrombin Time 25.9 Seconds (9.0-12.0)
[2022-02-19 14:34] LABS: Troponin I High Sensitivity 399.5 pg/ml (0-14)
[2022-02-19 14:45] LABS: Albumin Globulin Ratio 1.1 (0.9-2); Albumin Level 3.7 gm/dl (3.4-5.0); BUN Creatinine Ratio 17.9 (10-20); Bilirubin,Total 0.6 mg/dl (0.2-1.0); Calcium 9.1 mg/dl (8.5-10.1); Creatinine Clr Calc Pharmacy 37.2 ml/min; Est GFR (African American) 41.8 ml/min; Globulin 3.3 gm/dl (2.5-4.0); Magnesium 2.2 mg/dl (1.7-2.4); Potassium 4.2 mmol/L (3.5-5.1)
--- NOTE | 2022-02-19 14:50 | XRay Report ---
SINGLE VIEW CHEST CLINICAL HISTORY: Dyspnea. FINDINGS: An AP, portable, upright chest radiograph is compared to study dated 07/22/2020. The examin ation is degraded by portable technique and apical lordotic positioning. The heart is enlarged noting atherosclerotic calcification of the thoracic aorta. There is pulmonary vascular congestion. There a re bilateral airspace opacities. Small pleural effusions are noted with dependent consolidation. No p neumothorax is seen. The skeletal structures are osteopenic. The bony thorax is grossly intact. IMPRESSION: 1. Cardiomegaly with evidence of congestive failure. 2. Bilateral airspace opacities likely represent pulmonary edema. Correlate clinically for evidence o f a superimposed infectious/inflammatory pneumonitis. Radiographic follow-up to resolution is recomme nded. 3. Small pleural effusions. ACT 112: Negative or not required by law. Electronically signed by: Desmond Maldonado M.D. 02/19/2022 2:48 PM
[2022-02-19] MEDS ORDERED: CEFEPIME 2,000 MG/20 ML VIAL IV STA (15:15)
[2022-02-19] MEDS ORDERED: dexAMETHasone**PF** 10 MG/ML VIAL IV ONE (15:15)
[2022-02-19] MEDS ORDERED: FUROSEMIDE 40 MG/4 ML VIAL IV ONE (15:15)
[2022-02-19] MEDS ORDERED: ASPIRIN CHEW 324 MG PO STA (15:18)
[2022-02-19 15:33] LABS: Base Excess VBG 14.5 mEq/L; HCO3 VBG 43 mmol/L; Oxygen Saturation VBG 76.9 %; PCO2 VBG 73 mmHg (38-50); PO2 VBG 49 mmHg; pH VBG 7.38 (7.36-7.41)
[2022-02-19] MEDS ORDERED: ACETAMINOPHEN 325 MG TAB PO PRN (15:44)
--- NOTE | 2022-02-19 15:44 | History & Physical Report ---
Date of Service February 19, 2022 Assessment & Plan (1) Hypoxemia: (2) Dyspnea: (3) Elevated troponin I level: (4) CHF (congestive heart failure): Plan: Patient presents with shortness of breath, hypoxia Since she had COVID in June, patient has been using supplemental oxygen In ED she is on 4 L, which seems to be somewhat increased Chest x-ray significant for pulmonary vascular congestion proBNP elevated Troponin elevated Patient denies any chest pain Patient likely presents with acute CHF Received IV Lasix, IV Decadron, IV antibiotics and aspirin in the ED Will obtain procalcitonin, for now we will hold antibiotic Blood culture pending Continue with IV Lasix twice daily Obtain echocardiogram Close I's and O's monitoring Cardiology consultation in the morning History of A. fib on warfarin INR therapeutic, continue to monitor INR Continue Toprol Rate control Hypertension Patient found to be quite hypertensive in the ED Received IV Lasix, continue to closely monitor blood pressure Continue home medications CKD stage III Continue to monitor creatinine/renal function DVT ppx: On warfarin CODE STATUS DNR/DNI -discussed with the patient History of Present Illness Chief Complaint: Shortness of breath Primary Care Provider: Houston Faria 87-year-old female with history of A. fib on warfarin, hypertension, hyperlipidemia, asthma, depression/anxiety, CKD stage III, who presents with shortness of breath. Reports that she has been more short of breath for the past few weeks. She also noticed some increased swelling in her lower extremities in the past 2 weeks. Denies any chest pain. Denies any fevers, chills, dizziness or palpitations. Reports that since she had COVID in June, she has been on oxygen, and never fully recovered. Denies abdominal pain, nausea vomiting or diarrhea. In ED she was found to have elevated troponin, chest x-ray significant for pulmonary vasc. congestion and small pl. effusions. She received IV Lasix, IV Decadron, also IV antibiotics and aspirin in the ED. Blood cultures obtained. proBNP was initially pending in ED, however now it is found to be elevated. Allergies Allergy/AdvReac Type Severity Reaction Status Date / Time levofloxacin [From Levaquin] Allergy Intermediate drug Verified 02/19/22 16:40 eruption BLE atorvastatin [From Lipitor] Allergy Unknown Unknown Unverified 08/28/18 12:43 doxycycline Allergy Unknown Unknown Unverified 08/28/18 12:43 penicillin G Allergy Unknown Unknown Unverified 08/28/18 12:43 Sulfa (Sulfonamide Allergy Unknown Unknown Unverified 08/28/18 12:43 Antibiotics) Home Medications Medication Instructions Recorded Confirmed Type cholecalciferol (vitamin D3) 125 5,000 unit PO QAM 08/28/18 02/19/22 History mcg (5,000 unit) tablet (Vitamin D3) folic acid 1 mg tablet 1 mg PO QAM 08/28/18 02/19/22 History furosemide 20 mg tablet 20 mg PO BID 08/28/18 02/19/22 History levothyroxine 50 mcg tablet 50 mcg PO QAM 08/28/18 02/19/22 History lisinopril 10 mg tablet 5 mg PO QAM 08/28/18 02/19/22 History pravastatin 40 mg tablet 40 mg PO HS 08/28/18 02/19/22 History quetiapine 50 mg tablet 50 mg PO BID 08/28/18 02/19/22 History venlafaxine 150 mg 150 mg PO QAM 08/28/18 02/19/22 History capsule,extended release 24 hr venlafaxine 75 mg capsule,extended 75 mg PO QAM 08/28/18 02/19/22 History release 24 hr guaifenesin 600 mg tablet, 600 mg PO BID 07/22/20 02/19/22 History extended release 12 hr (Mucinex) acetaminophen 325 mg tablet 650 mg PO Q4 PRN Pain 02/19/22 02/19/22 History biotin 10,000 mcg disintegrating 10,000 mcg PO DAILY 02/19/22 02/19/22 History tablet dextromethorphan-guaifenesin 10 5 ml PO Q4H PRN Cough 02/19/22 02/19/22 History mg-100 mg/5 mL oral syrup (Tussin DM) ipratropium 0.5 mg-albuterol 3 mg 3 ml inhalation Q6H PRN Shortness 02/19/22 02/19/22 History (2.5 mg base)/3 mL nebulization Of Breath Or Wheezing soln ipratropium 20 mcg-albuterol 100 1 puff inhalation .EVERY 2 HOURS 02/19/22 02/19/22 History mcg/actuation mist for inhalation PRN Shortness Of Breath (Combivent Respimat) ipratropium 20 mcg-albuterol 100 1 puff inhalation BID 02/19/22 02/19/22 History mcg/actuation mist for inhalation (Combivent Respimat) menthol 16 % topical liquid (Icy 1 ea topical BID PRN knee pain 02/19/22 02/19/22 History Hot No Mess) metoprolol tartrate 25 mg tablet 12.5 mg PO BID 02/19/22 02/19/22 History warfarin 4 mg tablet 4 mg PO QPM 02/19/22 02/19/22 History Past Med/Surg History Medical History Asthma Atrial fibrillation CKD (chronic kidney disease) stage 3, GFR 30-59 ml/min Depression with anxiety Elevated troponin HLD (hyperlipidemia) HTN (hypertension) Surgical History History of appendectomy History of foot surgery R foot Osteotomy History of partial hysterectomy Family History Sister Breast cancer Mother Hypertension Social History Smoking Status: Former smoker Second Hand Exposure: No; Hx Alcohol Use: No Hx Substance Use: No Preferred Language: Bruneian Communication Ability: Effective 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 Beliefs That Will Affect Care: None marital status: / Current Living Situation: Correction Current Living Situation Comment: Jess Other Information That Helps Us Care for You: No Feels Safe at Home: Yes Safety Concerns: Feels Safe At This Time Assistive Devices: Denture - Upper, Denture - Lower, Oxygen - Continuous and Walker Review of Systems Review of Systems: All systems reviewed & are unremarkable except as noted in HPI & below Physical Exam Constitutional: WD/WN, vitals as above (obese F on NC ) Eyes: PERRL, conjunctivae normal, anicteric sclerae ENMT: external ear and nose normal, oropharynx normal Neck: + thick neck Respiratory: normal respiratory effort, lungs clear to auscultation Cardiovascular: RRR, no murmur, no edema Chest (Breasts): Chest: normal inspection of chest Gastrointestinal (Abdomen): normal bowel sounds, soft, nontender, no hepatosplenomegaly Musculoskeletal: no cyanosis or clubbing, extremities motor strength 5/5 (minimal LE edema b/l) Skin: no rashes, warm and dry Neurologic: PERRL, EOMI, accommodation nl, no face palsy, no dysarthria Psychiatric: A+Ox3, euthymic affect Lymphatic: + lymphedema (mild LE edema b/l) Results & Data Results & Data ([facility]) Vital Signs (Past 12 Hours) Vital Signs Temp Pulse Pulse Resp BP BP Pulse Ox 02/19/22 13:54 84 21 94 02/19/22 13:54 82 21 197/99 H 94 02/19/22 13:54 94 02/19/22 13:24 36.9 C 84 21 197/99 H 99 O2 Del Method O2 Flow Rate 02/19/22 13:54 Nasal Cannula 4 02/19/22 13:54 Nasal Cannula 4 02/19/22 13:54 Nasal Cannula 4 02/19/22 13:24 Nasal Cannula 4 Laboratory Results reviewed Significant for elevated troponin, elevated proBNP Diagnostic Findings CXR IMPRESSION: 1. Cardiomegaly with evidence of congestive failure. 2. Bilateral airspace opacities likely represent pulmonary edema. Correlate clinically for evidence of a superimposed infectious/inflammatory pneumonitis. Radiographic follow-up to resolution is recommended. 3. Small pleural effusions. (1) Dyspnea Dyspnea type: shortness of breath Qualified Code(s): R06.02 - Shortness of breath
[2022-02-19 16:00] LABS: Influenza A virus by PCR Negative (Neg); Influenza B virus by PCR Negative (Neg); RSV by PCR Negative (Neg); SARS CoV2 RNA(COVID-19) InHosp NEGATIVE (Negative)
[2022-02-19 20:38] LABS: Appearance Urine Clear (Clear); Bacteria Urine Automated Negative (Negative); Bilirubin Urine Negative (Negative); Blood Urine Trace (Negative); Color Urine Yellow; Epithelial Cell Urine Auto >30 /lpf (0-5); Glucose Urine UA Negative (Negative); Ketones Urine Negative (Negative); Leukocyte Esterase Urine Negative (Negative); Nitrite Urine Positive (Negative); Protein Urine 2+ (Negative); Urobilinogen Urine Negative (Negative); pH Urine 6.5 (4.5-7.5)
[2022-02-19] MEDS: LABETALOL HCL IV 5 MG/ML 20ML IV PRN (20:40)
[2022-02-20] MEDS: LABETALOL HCL IV 5 MG/ML 20ML IV PRN (03:51)
[2022-02-20 06:53] LABS: Hematocrit (blood only) 44.1 % (34.1-44.9); Hemoglobin 12.8 g/dl (12.0-16.0); Mean Corpuscular Hemoglobin 25.4 pg (25.0-34.0); Mean Corpuscular Volume 87.7 fL (80.0-100.0); Mean Platelet Volume 9.8 fL (9.4-12.3); Platelet Count 198 K/uL (130-400); RDW Coefficient of Variation 17.6 % (11.5-14.5); RDW Standard Deviation 55.8 fL (36.4-46.3); Red Blood Count 5.03 M/uL (3.93-5.22); White Blood Count 5.67 K/ul (4.8-10.8)
[2022-02-20] MEDS ORDERED: IPRATROPIUM BROMIDE/ALBUTEROL respimat INH INH PRN (06:55)
[2022-02-20] MEDS ORDERED: PNEUMOCOCCAL POLYSACCHARIDES 25 MCG/0.5 ML VIAL/SYR IM ONE (07:00)
[2022-02-20] MEDS ORDERED: FUROSEMIDE 40 MG/4 ML VIAL IV ONE (07:00)
[2022-02-20 07:08] LABS: INR 3.2 (0.9-1.1); Prothrombin Time 31.7 Seconds (9.0-12.0)
[2022-02-20 07:34] LABS: BUN Creatinine Ratio 20.9 (10-20); Calcium 9.5 mg/dl (8.5-10.1); Est GFR (African American) 41.8 ml/min; Magnesium 2.3 mg/dl (1.7-2.4)
[2022-02-20] MEDS ORDERED: IPRATROPIUM BROMIDE/ALBUTEROL respimat INH INH SCH (09:00)
--- NOTE | 2022-02-20 09:06 | Hospitalist Progress Note ---
Date of Service February 20, 2022 Assessment & Plan (1) Hypoxemia: (2) Dyspnea: (3) Elevated troponin I level: (4) CHF (congestive heart failure): Plan: Acute decompensated diastolic heart failure likely due to her aortic stenosis. Patient presents with shortness of breath, hypoxia Since she had COVID in June, patient has been using supplemental oxygen In ED she is on 4 L, which seems to be somewhat increased Chest x-ray significant for pulmonary vascular congestion proBNP elevated Troponin elevated Patient denies any chest pain Patient likely presents with acute CHF Received IV Lasix, IV Decadron, IV antibiotics and aspirin in the ED procalcitonin negative, for now we will hold antibiotic Blood culture pending Continue with IV Lasix twice daily Obtained echocardiogram Normal LV chamber size with severe concentric LVH. Normal LV systolic function, EF 60 to 65%. No segmental LV wall motion abnormalities are noted. Grade 3 diastolic dysfunction consistent with restrictive physiology. RV systolic function is reduced as assessed by tricuspid annular plane systolic excursion TAPSE less than 1.6 cm. Severe calcific aortic valve stenosis. VMI 5.8 m/s and PGM of 84 mmHg. Moderate aortic regurg. Calcified mitral apparatus causing mitral stenosis. There is moderate mitral regurg. There is mild mitral stenosis. Severe LA enlargement. Borderline pulmonary hypertension with a PA systolic pressure of 35 mmHg assuming RA pressure of 3 m mercury. Close I's and O's monitoring Cardiology consulted Review of echocardiogram now shows that she has critical aortic stenosis with a maximum velocity of 5.8 m/s and a mean pressure gradient of 84 mmHg, both of which are remarkably abnormal She does present in acute decompensated diastolic heart failure likely due to her aortic stenosis. Has been started on IV diuresis and will continue. Will need to discuss patient treatment preference ongoing with TAVR evaluation versus hospice care ultimately Continue to monitor on telemetry History of A. fib on warfarin INR therapeutic, continue to monitor INR Continue Toprol Rate control Hypertension Patient found to be quite hypertensive in the ED Received IV Lasix, continue to closely monitor blood pressure Continue home medications CKD stage III Continue to monitor creatinine/renal function DVT ppx: On warfarin CODE STATUS DNR/DNI -discussed with the patient Admission and Anticipated Discharge Date Admission Date: February 19, 2022 Subjective Patient seen in follow-up of shortness of breath, secondary to CHF Currently laying in bed, in no acute distress, on supplemental oxygen via nasal cannula Reports feeling better No fevers, chills, no significant cough, no abdominal pain, nausea or vomiting, no chest pain or palpitation Review of Systems Review of Systems: All systems reviewed & are unremarkable except as noted in Subjective Physical Exam Physical Exam: Constitutional:J obese F in NAD on suppl. O2 via NC Eyes: PERRL, EOMI, conju nctivae normal, an icteric sclerae ENMT: external ear and n ose normal, oropha rynx normal Neck: + thick neck Respiratory: normal respiratory effort, lungs meche ar to auscultation , minimal crackles , no wheezing Cardiovascular:J RRR, +syst. murmur , minimal LE edema Chest (Breasts): Chest: normal insp ection of chest Gastrointestinal ( Abdomen): normal bowel sound s, soft, nontender Musculoskeletal: extremities motor strength 5/5 (mini mal LE edema b/l) Skin: no rashes, warm an d dry Neurologic: PERRL, EOMI, no fa ce palsy, no dysar thria, moves extre mities Psychiatric: A+Ox3, euthymic af fect Lymphatic: + lymphedema (mil d LE edema b/l) Results & Data Results & Data ([facility]) Vital Signs (Past 12 Hours) Vital Signs Temp Pulse Pulse Resp BP Pulse Ox O2 Del Method 02/20/22 08:07 36.8 C 85 27 H 184/143 H 93 Nasal Cannula 02/20/22 04:10 175/91 H 02/20/22 03:45 202/148 H 02/20/22 03:00 36.6 C 87 20 207/93 H 93 Nasal Cannula 02/19/22 23:29 37.0 C 86 18 170/68 H 92 02/19/22 22:31 83 02/19/22 21:06 168/113 H O2 Flow Rate 02/20/22 08:07 3 02/20/22 04:10 02/20/22 03:45 02/20/22 03:00 02/19/22 23:29 02/19/22 22:31 02/19/22 21:06 Laboratory Results 02/20/22 02/20/22 02/20/22 Range/Units 06:07 06:07 06:07 WBC 5.67 (4.8-10.8) K/ul RBC 5.03 (3.93-5.22) M/uL Hgb 12.8 (12.0-16.0) g/dl Hct 44.1 (34.1-44.9) % MCV 87.7 (80.0-100.0) fL MCH 25.4 (25.0-34.0) pg MCHC 29.0 L (32.0-36.0) g/dL RDW Std Deviation 55.8 H (36.4-46.3) fL RDW Coeff of Bozena 17.6 H (11.5-14.5) % Plt Count 198 (130-400) K/uL MPV 9.8 (9.4-12.3) fL Immature Gran % (Auto) % Neut % (Auto) % Lymph % (Auto) % [place] % (Auto) % Eos % (Auto) % Baso % (Auto) % Neut # (Auto) (1.4-6.5) K/uL Lymph # (Auto) (1.2-3.4) K/uL [place] # (Auto) (0.24-0.82) K/uL Eos # (Auto) (0-0.50) K/uL Baso # (Auto) (0-0.2) K/uL Immature Gran # (Auto) (0.00-0.02) K/uL PT 31.7 H (9.0-12.0) Seconds INR 3.2 H (0.9-1.1) APTT (21.0-31.0) Seconds PTT Ratio VBG pH (7.36-7.41) VBG pCO2 (38-50) mmHg VBG pO2 mmHg VBG HCO3 mmol/L VBG O2 Saturation % VBG Base Excess mEq/L Sodium 143 (136-145) mmol/L Potassium 5.0 (3.5-5.1) mmol/L Chloride 96 L (98-107) mmol/L Carbon Dioxide 42 H* (21-32) mmol/L Anion Gap 5 (3-11) BUN 28 H (6-23) mg/dl Creatinine 1.34 H (0.6-1.2) mg/dl Est Cr Clr Drug Dosing 36.0 ml/min Est GFR ( Amer) 41.8 ml/min Est GFR (Non-Af Amer) 36.0 ml/min BUN/Creatinine Ratio 20.9 H (10-20) Glucose 118 H (70-99(Fasting)) mg/dl Calcium 9.5 (8.5-10.1) mg/dl Phosphorus 5.0 H (2.5-4.9) mg/dl Magnesium 2.3 (1.7-2.4) mg/dl Total Bilirubin (0.2-1.0) mg/dl AST (13-39) U/L ALT (7-52) U/L Alkaline Phosphatase (34-104) U/L Troponin I High Sens (0-14) pg/ml B-Natriuretic Peptide (0-100) pg/ml Total Protein (6.0-8.3) gm/dl Albumin (3.4-5.0) gm/dl Globulin (2.5-4.0) gm/dl Albumin/Globulin Ratio (0.9-2) Procalcitonin (0-0.5) ng/ml Urine Color Urine Appearance (Clear) Urine pH (4.5-7.5) Ur Specific [place] (1.000-1.030) Urine Protein (Negative) Urine Glucose (UA) (Negative) Urine Ketones (Negative) Urine Blood (Negative) Urine Nitrite (Negative) Urine Bilirubin (Negative) Urine Urobilinogen (Negative) Ur Leukocyte Esterase (Negative) Urine WBC (Auto) (0-5) /hpf Urine RBC (Auto) (0-4) /hpf U Hyaline Cast (Auto) (0-5) /lpf U Epithel Cells (Auto) (0-5) /lpf Urine Bacteria (Auto) (Negative) Nasal Screen MRSA (PCR) (Negative) SARS-CoV-2 (PCR) (Negative) Influenza Type A (PCR) (Neg) Influenza Type B (PCR) (Neg) RSV (RT-PCR) (Neg) 02/19/22 02/19/22 02/19/22 Range/Units Unknown Unknown 15:15 WBC (4.8-10.8) K/ul RBC (3.93-5.22) M/uL Hgb (12.0-16.0) g/dl Hct (34.1-44.9) % MCV (80.0-100.0) fL MCH (25.0-34.0) pg MCHC (32.0-36.0) g/dL RDW Std Deviation (36.4-46.3) fL RDW Coeff of Bozena (11.5-14.5) % Plt Count (130-400) K/uL MPV (9.4-12.3) fL Immature Gran % (Auto) % Neut % (Auto) % Lymph % (Auto) % [place] % (Auto) % Eos % (Auto) % Baso % (Auto) % Neut # (Auto) (1.4-6.5) K/uL Lymph # (Auto) (1.2-3.4) K/uL [place] # (Auto) (0.24-0.82) K/uL Eos # (Auto) (0-0.50) K/uL Baso # (Auto) (0-0.2) K/uL Immature Gran # (Auto) (0.00-0.02) K/uL PT (9.0-12.0) Seconds INR (0.9-1.1) APTT (21.0-31.0) Seconds PTT Ratio VBG pH (7.36-7.41) VBG pCO2 (38-50) mmHg VBG pO2 mmHg VBG HCO3 mmol/L VBG O2 Saturation % VBG Base Excess mEq/L Sodium (136-145) mmol/L Potassium (3.5-5.1) mmol/L Chloride (98-107) mmol/L Carbon Dioxide (21-32) mmol/L Anion Gap (3-11) BUN (6-23) mg/dl Creatinine (0.6-1.2) mg/dl Est Cr Clr Drug Dosing ml/min Est GFR ( Amer) ml/min Est GFR (Non-Af Amer) ml/min BUN/Creatinine Ratio (10-20) Glucose (70-99(Fasting)) mg/dl Calcium (8.5-10.1) mg/dl Phosphorus (2.5-4.9) mg/dl Magnesium (1.7-2.4) mg/dl Total Bilirubin (0.2-1.0) mg/dl AST (13-39) U/L ALT (7-52) U/L Alkaline Phosphatase (34-104) U/L Troponin I High Sens (0-14) pg/ml B-Natriuretic Peptide (0-100) pg/ml Total Protein (6.0-8.3) gm/dl Albumin (3.4-5.0) gm/dl Globulin (2.5-4.0) gm/dl Albumin/Globulin Ratio (0.9-2) Procalcitonin < 0.05 (0-0.5) ng/ml Urine Color Yellow Urine Appearance Clear (Clear) Urine pH 6.5 (4.5-7.5) Ur Specific [place] 1.010 (1.000-1.030) Urine Protein 2+ H (Negative) Urine Glucose (UA) Negative (Negative) Urine Ketones Negative (Negative) Urine Blood Trace H (Negative) Urine Nitrite Positive A (Negative) Urine Bilirubin Negative (Negative) Urine Urobilinogen Negative (Negative) Ur Leukocyte Esterase Negative (Negative) Urine WBC (Auto) 5-10 H (0-5) /hpf Urine RBC (Auto) 5-10 H (0-4) /hpf U Hyaline Cast (Auto) 1-5 (0-5) /lpf U Epithel Cells (Auto) >30 H (0-5) /lpf Urine Bacteria (Auto) Negative (Negative) Nasal Screen MRSA (PCR) Negative (Negative) SARS-CoV-2 (PCR) (Negative) Influenza Type A (PCR) (Neg) Influenza Type B (PCR) (Neg) RSV (RT-PCR) (Neg) 02/19/22 02/19/22 02/19/22 Range/Units 15:10 15:10 13:49 WBC (4.8-10.8) K/ul RBC (3.93-5.22) M/uL Hgb (12.0-16.0) g/dl Hct (34.1-44.9) % MCV (80.0-100.0) fL MCH (25.0-34.0) pg MCHC (32.0-36.0) g/dL RDW Std Deviation (36.4-46.3) fL RDW Coeff of Bozena (11.5-14.5) % Plt Count (130-400) K/uL MPV (9.4-12.3) fL Immature Gran % (Auto) % Neut % (Auto) % Lymph % (Auto) % [place] % (Auto) % Eos % (Auto) % Baso % (Auto) % Neut # (Auto) (1.4-6.5) K/uL Lymph # (Auto) (1.2-3.4) K/uL [place] # (Auto) (0.24-0.82) K/uL Eos # (Auto) (0-0.50) K/uL Baso # (Auto) (0-0.2) K/uL Immature Gran # (Auto) (0.00-0.02) K/uL PT (9.0-12.0) Seconds INR (0.9-1.1) APTT (21.0-31.0) Seconds PTT Ratio VBG pH 7.38 (7.36-7.41) VBG pCO2 73 H (38-50) mmHg VBG pO2 49 mmHg VBG HCO3 43 mmol/L VBG O2 Saturation 76.9 % VBG Base Excess 14.5 mEq/L Sodium 141 (136-145) mmol/L Potassium 4.2 (3.5-5.1) mmol/L Chloride 98 (98-107) mmol/L Carbon Dioxide 36 H (21-32) mmol/L Anion Gap 7 (3-11) BUN 24 H (6-23) mg/dl Creatinine 1.34 H (0.6-1.2) mg/dl Est Cr Clr Drug Dosing 37.2 ml/min Est GFR ( Amer) 41.8 ml/min Est GFR (Non-Af Amer) 36.0 ml/min BUN/Creatinine Ratio 17.9 (10-20) Glucose 112 H (70-99(Fasting)) mg/dl Calcium 9.1 (8.5-10.1) mg/dl Phosphorus (2.5-4.9) mg/dl Magnesium 2.2 (1.7-2.4) mg/dl Total Bilirubin 0.6 (0.2-1.0) mg/dl AST 20 (13-39) U/L ALT 16 (7-52) U/L Alkaline Phosphatase 71 (34-104) U/L Troponin I High Sens 399.5 H* (0-14) pg/ml B-Natriuretic Peptide 1754 H (0-100) pg/ml Total Protein 7.0 (6.0-8.3) gm/dl Albumin 3.7 (3.4-5.0) gm/dl Globulin 3.3 (2.5-4.0) gm/dl Albumin/Globulin Ratio 1.1 (0.9-2) Procalcitonin (0-0.5) ng/ml Urine Color Urine Appearance (Clear) Urine pH (4.5-7.5) Ur Specific [place] (1.000-1.030) Urine Protein (Negative) Urine Glucose (UA) (Negative) Urine Ketones (Negative) Urine Blood (Negative) Urine Nitrite (Negative) Urine Bilirubin (Negative) Urine Urobilinogen (Negative) Ur Leukocyte Esterase (Negative) Urine WBC (Auto) (0-5) /hpf Urine RBC (Auto) (0-4) /hpf U Hyaline Cast (Auto) (0-5) /lpf U Epithel Cells (Auto) (0-5) /lpf Urine Bacteria (Auto) (Negative) Nasal Screen MRSA (PCR) (Negative) SARS-CoV-2 (PCR) (Negative) Influenza Type A (PCR) (Neg) Influenza Type B (PCR) (Neg) RSV (RT-PCR) (Neg) 02/19/22 02/19/22 02/19/22 Range/Units 13:49 13:49 13:43 WBC 8.13 (4.8-10.8) K/ul RBC 4.85 (3.93-5.22) M/uL Hgb 12.6 (12.0-16.0) g/dl Hct 43.2 (34.1-44.9) % MCV 89.1 (80.0-100.0) fL MCH 26.0 (25.0-34.0) pg MCHC 29.2 L (32.0-36.0) g/dL RDW Std Deviation 55.9 H (36.4-46.3) fL RDW Coeff of Bozena 17.4 H (11.5-14.5) % Plt Count 187 (130-400) K/uL MPV 10.0 (9.4-12.3) fL Immature Gran % (Auto) 0.2 % Neut % (Auto) 62.6 % Lymph % (Auto) 23.9 % [place] % (Auto) 12.8 % Eos % (Auto) 0.0 % Baso % (Auto) 0.5 % Neut # (Auto) 5.09 (1.4-6.5) K/uL Lymph # (Auto) 1.94 (1.2-3.4) K/uL [place] # (Auto) 1.04 H (0.24-0.82) K/uL Eos # (Auto) 0.00 (0-0.50) K/uL Baso # (Auto) 0.04 (0-0.2) K/uL Immature Gran # (Auto) 0.02 (0.00-0.02) K/uL PT 25.9 H (9.0-12.0) Seconds INR 2.6 H (0.9-1.1) APTT 32.5 H (21.0-31.0) Seconds PTT Ratio 1.2 VBG pH (7.36-7.41) VBG pCO2 (38-50) mmHg VBG pO2 mmHg VBG HCO3 mmol/L VBG O2 Saturation % VBG Base Excess mEq/L Sodium (136-145) mmol/L Potassium (3.5-5.1) mmol/L Chloride (98-107) mmol/L Carbon Dioxide (21-32) mmol/L Anion Gap (3-11) BUN (6-23) mg/dl Creatinine (0.6-1.2) mg/dl Est Cr Clr Drug Dosing ml/min Est GFR ( Amer) ml/min Est GFR (Non-Af Amer) ml/min BUN/Creatinine Ratio (10-20) Glucose (70-99(Fasting)) mg/dl Calcium (8.5-10.1) mg/dl Phosphorus (2.5-4.9) mg/dl Magnesium (1.7-2.4) mg/dl Total Bilirubin (0.2-1.0) mg/dl AST (13-39) U/L ALT (7-52) U/L Alkaline Phosphatase (34-104) U/L Troponin I High Sens (0-14) pg/ml B-Natriuretic Peptide (0-100) pg/ml Total Protein (6.0-8.3) gm/dl Albumin (3.4-5.0) gm/dl Globulin (2.5-4.0) gm/dl Albumin/Globulin Ratio (0.9-2) Procalcitonin (0-0.5) ng/ml Urine Color Urine Appearance (Clear) Urine pH (4.5-7.5) Ur Specific [place] (1.000-1.030) Urine Protein (Negative) Urine Glucose (UA) (Negative) Urine Ketones (Negative) Urine Blood (Negative) Urine Nitrite (Negative) Urine Bilirubin (Negative) Urine Urobilinogen (Negative) Ur Leukocyte Esterase (Negative) Urine WBC (Auto) (0-5) /hpf Urine RBC (Auto) (0-4) /hpf U Hyaline Cast (Auto) (0-5) /lpf U Epithel Cells (Auto) (0-5) /lpf Urine Bacteria (Auto) (Negative) Nasal Screen MRSA (PCR) (Negative) SARS-CoV-2 (PCR) NEGATIVE (Negative) Influenza Type A (PCR) Negative (Neg) Influenza Type B (PCR) Negative (Neg) RSV (RT-PCR) Negative (Neg) (1) Dyspnea Dyspnea type: shortness of breath Qualified Code(s): R06.02 - Shortness of breath
[2022-02-20] MEDS: VENLAFAXINE HCL XR 150 MG CAPXR PO SCH (09:48)
[2022-02-20] MEDS: VENLAFAXINE HCL XR 75 MG CAPXR PO SCH (09:48)
[2022-02-20] MEDS: QUEtiapine FUMARATE 25 MG TABLET PO SCH ×2 (09:48→21:06)
[2022-02-20] MEDS: lisinopril 5 MG TAB PO SCH (09:49)
[2022-02-20] MEDS: LEVOTHYROXINE SODIUM 50 MCG TABLET PO SCH (09:49)
[2022-02-20] MEDS: guaiFENesin 600 MG TABCR PO SCH ×2 (09:49→21:06)
[2022-02-20] MEDS: METOPROLOL TARTRATE 25 MG TAB PO SCH ×2 (09:50→21:06)
--- NOTE | 2022-02-20 10:31 | Cardiology Consultation ---
Date of Consultation February 20, 2022 Assessment & Plan (1) Acute diastolic CHF (congestive heart failure), NYHA class 4: (2) Critical aortic valve stenosis: (3) Hypoxemia: (4) Dyspnea: (5) Pulmonary edema: (6) Chronic a-fib: (7) Acute renal failure superimposed on stage 3a chronic kidney disease: Plan Review of echocardiogram now shows that she has critical aortic stenosis with a maximum velocity of 5.8 m/s and a mean pressure gradient of 84 mmHg, both of which are remarkably abnormal She does present in acute decompensated diastolic heart failure likely due to her aortic stenosis. Has been started on IV diuresis and will continue. Strict I's and O's and daily weights on the same standing scale Follow and replete lites as necessary Will need to discuss patient treatment preference ongoing with TAVR evaluation versus hospice care ultimately Continue to monitor on telemetry History of Present Illness Reason for Consultation: elevated troponin Requesting Physician: SIMEON Attending Physician: Maurice Mccarthy MD History of Present Illness It was my pleasure to see Mrs. Barker in cardiac consultation today 02/20/2022. She is a very pleasant 87-year-old woman who is been a refugee from cardiac care for many years now. She presented to [facility] on 02/19/2022 with complaints of shortness of breath. She states that she has been short of breath for several weeks now. Over the last 2 weeks though she has been becoming more short of breath with less and less activity and developed lower extremity edema. She denies any chest pain, palpitations, lightheadedness or dizziness. Upon arrival to the emergency department she was found to be hypoxic and volume overloaded. She received IV Lasix and admitted to telemetry. Currently she states that she is feeling much better at rest. PMHX: 1. Perminent atrial fibrillation h/o DCCV in past; on rate controlled and coumadin 2. HTN 3. HLD 4. Obesity 5. Asthma 6. Hypothyroidism 7. Depression 8. Pulmonary HTN Allergies Allergy/AdvReac Type Severity Reaction Status Date / Time levofloxacin [From Levaquin] Allergy Intermediate drug Verified 02/19/22 16:40 eruption BLE atorvastatin [From Lipitor] Allergy Unknown Unknown Unverified 08/28/18 12:43 doxycycline Allergy Unknown Unknown Unverified 08/28/18 12:43 penicillin G Allergy Unknown Unknown Unverified 08/28/18 12:43 Sulfa (Sulfonamide Allergy Unknown Unknown Unverified 08/28/18 12:43 Antibiotics) Home Medications Medication Instructions Recorded Confirmed Type cholecalciferol (vitamin D3) 125 5,000 unit PO QAM 08/28/18 02/19/22 History mcg (5,000 unit) tablet (Vitamin D3) folic acid 1 mg tablet 1 mg PO QAM 08/28/18 02/19/22 History furosemide 20 mg tablet 20 mg PO BID 08/28/18 02/19/22 History levothyroxine 50 mcg tablet 50 mcg PO QAM 08/28/18 02/19/22 History lisinopril 10 mg tablet 5 mg PO QAM 08/28/18 02/19/22 History pravastatin 40 mg tablet 40 mg PO HS 08/28/18 02/19/22 History quetiapine 50 mg tablet 50 mg PO BID 08/28/18 02/19/22 History venlafaxine 150 mg 150 mg PO QAM 08/28/18 02/19/22 History capsule,extended release 24 hr venlafaxine 75 mg capsule,extended 75 mg PO QAM 08/28/18 02/19/22 History release 24 hr guaifenesin 600 mg tablet, 600 mg PO BID 07/22/20 02/19/22 History extended release 12 hr (Mucinex) acetaminophen 325 mg tablet 650 mg PO Q4 PRN Pain 02/19/22 02/19/22 History biotin 10,000 mcg disintegrating 10,000 mcg PO DAILY 02/19/22 02/19/22 History tablet dextromethorphan-guaifenesin 10 5 ml PO Q4H PRN Cough 02/19/22 02/19/22 History mg-100 mg/5 mL oral syrup (Tussin DM) ipratropium 0.5 mg-albuterol 3 mg 3 ml inhalation Q6H PRN Shortness 02/19/22 02/19/22 History (2.5 mg base)/3 mL nebulization Of Breath Or Wheezing soln ipratropium 20 mcg-albuterol 100 1 puff inhalation .EVERY 2 HOURS 02/19/22 02/19/22 History mcg/actuation mist for inhalation PRN Shortness Of Breath (Combivent Respimat) ipratropium 20 mcg-albuterol 100 1 puff inhalation BID 02/19/22 02/19/22 History mcg/actuation mist for inhalation (Combivent Respimat) menthol 16 % topical liquid (Icy 1 ea topical BID PRN knee pain 02/19/22 02/19/22 History Hot No Mess) metoprolol tartrate 25 mg tablet 12.5 mg PO BID 02/19/22 02/19/22 History warfarin 4 mg tablet 4 mg PO QPM 02/19/22 02/19/22 History Patient History Medical History Asthma Atrial fibrillation CKD (chronic kidney disease) stage 3, GFR 30-59 ml/min Depression with anxiety Elevated troponin HLD (hyperlipidemia) HTN (hypertension) Surgical History History of appendectomy History of foot surgery R foot Osteotomy History of partial hysterectomy Family History Sister Breast cancer Mother Hypertension Social History Smoking Status: Former smoker Second Hand Exposure: No; Hx Alcohol Use: No Hx Substance Use: No Preferred Language: Pashto Communication Ability: Effective 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 No acute distress. HEENT: Normocephalic, atraumatic. Pupils equal, round and reactive to light and accommodation. Extraocular muscles are intact. Anicteric sclera. Moist mucous membranes. Neck: No JVD. No bruit. Cardiovascular: Regular. Positive S-4. Normal S-1 and S-2. No S-3. 3/6 mid to late systolic ejection murmur, greatest at the right sternal border, second intercostal space with radiation to the bilateral carotids. No rubs. Pulmonary: Clear to auscultation bilaterally. No rales, rhonchi, or wheezing. Abdomen: Bowel sounds x 4, soft. No rebound, guarding or tenderness. No organomegaly. Extremities: No clubbing, cyanosis or edema. +2 pedal pulses bilaterally. Skin: Warm and dry. Results & Data ([facility]) Vital Signs (Past 12 Hours) Vital Signs Temp Pulse Pulse Resp BP Pulse Ox O2 Del Method 02/20/22 07:00 84 02/20/22 08:07 36.8 C 85 27 H 184/143 H 93 Nasal Cannula 02/20/22 04:10 175/91 H 02/20/22 03:45 202/148 H 02/20/22 03:00 36.6 C 87 20 207/93 H 93 Nasal Cannula 02/19/22 23:29 37.0 C 86 18 170/68 H 92 O2 Flow Rate 02/20/22 07:00 02/20/22 08:07 3 02/20/22 04:10 02/20/22 03:45 02/20/22 03:00 02/19/22 23:29 (1) Dyspnea Dyspnea type: shortness of breath Qualified Code(s): R06.02 - Shortness of breath (2) Pulmonary edema Chronicity: acute Qualified Code(s): J81.0 - Acute pulmonary edema (3) Acute renal failure superimposed on stage 3a chronic kidney disease Acute renal failure type: unspecified Qualified Code(s): N17.9 - Acute kidney failure, unspecified; N18.31 - Chronic kidney disease, stage 3a
--- NOTE | 2022-02-20 11:36 | Electrocardiogram Report ---
Test Reason : Blood Pressure : / mmHG Vent. Rate : 077 BPM Atrial Rate : 078 BPM P-R Int : 000 ms QRS Dur : 098 ms QT Int : 396 ms P-R-T Axes : 000 007 -71 degrees QTc Int : 448 ms Poor data quality, interpretation may be adversely affected Atrial fibrillation Low voltage QRS Anterolateral infarct , age undetermined (cited on or before 19-FEB-2022) Abnormal ECG When compared with ECG of 22-JUL-2020 08:11, Anterolateral infarct , age undetermined is now present Nonspecific T wave abnormality have improved Confirmed by Twin Rosales ([id number]) on 02/20/2022 11:36:00 AM Referred By: REFERRED SELF Confirmed By:Twin Rosales
[2022-02-20] MEDS: WARFARIN SOD 4 MG TAB PO SCH (16:05)
[2022-02-20] MEDS: Ipratropium HFA Inhaler (Combivent Respimat P&T Subs) INH SCH (19:21)
[2022-02-20] MEDS: Albuterol HFA 8 GM Inhaler (Combivent Respimat P&T Subs) INH SCH (19:21)
[2022-02-20] MEDS: PRAVASTATIN SOD 40 MG TAB PO SCH (21:07)
[2022-02-21] MEDS: LEVOTHYROXINE SODIUM 50 MCG TABLET PO SCH (05:47)
[2022-02-21 06:44] LABS: BUN Creatinine Ratio 25.2 (10-20); Calcium 9.3 mg/dl (8.5-10.1); Creatinine Clr Calc Pharmacy 35.7 ml/min; Est GFR (African American) 41.4 ml/min; Est GFR (Non-African American) 35.7 ml/min; Magnesium 2.2 mg/dl (1.7-2.4); Phosphorus 4.3 mg/dl (2.5-4.9)
[2022-02-21 06:47] LABS: INR 2.8 (0.9-1.1); Prothrombin Time 28.6 Seconds (9.0-12.0)
[2022-02-21] MEDS: Ipratropium HFA Inhaler (Combivent Respimat P&T Subs) INH SCH ×2 (07:15→19:40)
[2022-02-21] MEDS: Albuterol HFA 8 GM Inhaler (Combivent Respimat P&T Subs) INH SCH ×2 (07:15→19:40)
[2022-02-21] MEDS: lisinopril 5 MG TAB PO SCH (08:33)
[2022-02-21] MEDS: METOPROLOL TARTRATE 25 MG TAB PO SCH ×2 (08:33→20:15)
[2022-02-21] MEDS: VENLAFAXINE HCL XR 75 MG CAPXR PO SCH (08:33)
[2022-02-21] MEDS: QUEtiapine FUMARATE 25 MG TABLET PO SCH ×2 (08:33→20:14)
[2022-02-21] MEDS: VENLAFAXINE HCL XR 150 MG CAPXR PO SCH (08:33)
[2022-02-21] MEDS: guaiFENesin 600 MG TABCR PO SCH ×2 (08:33→20:14)
[2022-02-21] MEDS: FOLIC ACID 1 MG TAB PO SCH (08:34)
--- NOTE | 2022-02-21 09:21 | Hospitalist Progress Note ---
Date of Service February 21, 2022 Assessment & Plan (1) Hypoxemia: (2) Dyspnea: (3) Elevated troponin I level: (4) CHF (congestive heart failure): Plan: Acute decompensated diastolic heart failure likely due to her aortic stenosis. Patient presents with shortness of breath, hypoxia Since she had COVID in June, patient has been using supplemental oxygen In ED she is on 4 L, which seems to be somewhat increased Chest x-ray significant for pulmonary vascular congestion proBNP elevated Troponin elevated Patient denies any chest pain Patient likely presents with acute CHF Received IV Lasix, IV Decadron, IV antibiotics and aspirin in the ED procalcitonin negative, for now we will hold antibiotic Blood culture pending Continue with IV Lasix twice daily Obtained echocardiogram Normal LV chamber size with severe concentric LVH. Normal LV systolic function, EF 60 to 65%. No segmental LV wall motion abnormalities are noted. Grade 3 diastolic dysfunction consistent with restrictive physiology. RV systolic function is reduced as assessed by tricuspid annular plane systolic excursion TAPSE less than 1.6 cm. Severe calcific aortic valve stenosis. VMI 5.8 m/s and PGM of 84 mmHg. Moderate aortic regurg. Calcified mitral apparatus causing mitral stenosis. There is moderate mitral regurg. There is mild mitral stenosis. Severe LA enlargement. Borderline pulmonary hypertension with a PA systolic pressure of 35 mmHg assuming RA pressure of 3 m mercury. Close I's and O's monitoring Cardiology consulted Review of echocardiogram now shows that she has critical aortic stenosis with a maximum velocity of 5.8 m/s and a mean pressure gradient of 84 mmHg, both of which are remarkably abnormal She does present in acute decompensated diastolic heart failure likely due to her aortic stenosis. Has been started onIV diuresis and will continue. Will need to discuss patient treatment preference ongoing with TAVR evaluation versus hospice care ultimately Continue to monitor on telemetry Hypertension Patient found to be quite hypertensive in the ED Received IV Lasix, continue to closely monitor blood pressure Continue home medications Patient hypertensive, lisinopril increased. Will avoid hydralazine. If needed, may need to add amlodipine History of A. fib on warfarin INR therapeutic, continue to monitor INR Continue Toprol Rate control CKD stage III Continue to monitor creatinine/renal function DVT ppx: On warfarin CODE STATUS DNR/DNI -discussed with the patient Admission and Anticipated Discharge Date Admission Date: February 19, 2022 Subjective Patient seen in follow-up of shortness of breath, secondary to CHF, severe Currently laying in bed, in no acute distress, on supplemental oxygen via nasal cannula Little confused today, yesterday she was able to tell me exactly why she was in the hospital, today she does not remember that Reports feeling ok No fevers, chills, no significant cough, no abdominal pain, nausea or vomiting, no chest pain or palpitation Review of Systems Review of Systems: All systems reviewed & are unremarkable except as noted in Subjective Physical Exam Physical Exam: Constitutional:J obese F in NAD on suppl. O2 via NC Eyes: PERRL, EOMI, conju nctivae normal, an icteric sclerae ENMT: external ear and n ose normal, oropha rynx normal Neck:J + thick neck Respiratory: normal respiratory effort, lungs meche ar to auscultation , minimal crackles , no wheezing Cardiovascular:J RRR, +syst. murmur , minimal LE edema Chest (Breasts): Chest: normal insp ection of chest Gastrointestinal ( Abdomen): normal bowel sound s, soft, nontender Musculoskeletal: extremities motor strength 5/5 (mini mal LE edema b/l) Skin: no rashes, warm an d dry Neurologic: PERRL, EOMI, no fa ce palsy, no dysar thria, moves extre mities Psychiatric:J A+Ox3, euthymic af fect Lymphatic: + lymphedema (mil d LE edema b/l) Results & Data Results & Data ([facility]) Vital Signs (Past 12 Hours) Vital Signs Temp Pulse Resp BP Pulse Ox O2 Del Method O2 Flow Rate 02/21/22 07:46 36.9 C 92 H 18 176/93 H 93 Nasal Cannula 4 02/21/22 07:15 79 18 97 Nasal Cannula 4 02/21/22 03:00 37.2 C 83 20 161/74 H 90 Nasal Cannula 02/20/22 23:00 36.8 C 73 18 111/67 96 Nasal Cannula Laboratory Results 02/21/22 02/21/22 02/20/22 Range/Units 05:50 05:50 09:22 PT 28.6 H (9.0-12.0) Seconds INR 2.8 H (0.9-1.1) Sodium 143 (136-145) mmol/L Potassium 4.0 (3.5-5.1) mmol/L Chloride 96 L (98-107) mmol/L Carbon Dioxide 43 H* (21-32) mmol/L Anion Gap 4 (3-11) BUN 34 H (6-23) mg/dl Creatinine 1.35 H (0.6-1.2) mg/dl Est Cr Clr Drug Dosing 35.7 ml/min Est GFR ( Amer) 41.4 ml/min Est GFR (Non-Af Amer) 35.7 ml/min BUN/Creatinine Ratio 25.2 H (10-20) Glucose 102 H (70-99(Fasting)) mg/dl Calcium 9.3 (8.5-10.1) mg/dl Phosphorus 4.3 (2.5-4.9) mg/dl Magnesium 2.2 (1.7-2.4) mg/dl Troponin I High Sens 315.3 H* D (0-14) pg/ml Medications Administered Current Inpatient Medications Acetaminophen (Acetaminophen 325 Mg Tab) 650 mg PO Q4H PRN PRN Reason: Pain or Fever Stop: 03/21/22 15:43 Albuterol (Albut/Ipratrop 3mg/0.5mg Neb 3 Ml Vial) 3 ml INH Q6H PRN; Protocol PRN Reason: Shortness Of Breath Or Wheezin Stop: 03/22/22 06:54 Albuterol (Albuterol Hfa 8 Gm Inhaler (Combivent Respimat P&T Subs)) 1 puffs INH BIDR LUCIE Stop: 03/22/22 18:59 Last Admin: 02/21/22 07:15 Dose: 1 puffs Folic Acid (Folic Acid 1 Mg Tab) 1 mg PO QAM LUCIE Stop: 03/22/22 08:59 Last Admin: 02/21/22 08:34 Dose: 1 mg Guaifenesin (Guaifenesin 600 Mg Tabcr) 600 mg PO BID LUCIE Stop: 03/22/22 08:59 Last Admin: 02/21/22 08:33 Dose: 600 mg Ipratropium Alda (Ipratropium Hfa Inhaler (Combivent Respimat P&T Subs)) 1 puffs INH BIDR LUCIE Stop: 03/22/22 18:59 Last Admin: 02/21/22 07:15 Dose: 1 puffs Labetalol HCl (Labetalol Hcl Iv 5 Mg/Ml 20ml) 10 mg IV Q4H PRN PRN Reason: Hypertension Stop: 03/21/22 19:41 Last Admin: 02/20/22 03:51 Dose: 10 mg Levothyroxine Sodium (Levothyroxine Sodium 50 Mcg Tablet) 50 mcg PO DAILYBB [facility] Stop: 03/22/22 07:14 Last Admin: 02/21/22 05:47 Dose: 50 mcg Lisinopril (Lisinopril 5 Mg Tab) 5 mg PO QAM [facility] Stop: 03/22/22 08:59 Last Admin: 02/21/22 08:33 Dose: 5 mg Metoprolol Tartrate (Metoprolol Tartrate 25 Mg Tab) 12.5 mg PO BID [facility] Stop: 03/22/22 08:59 Last Admin: 02/21/22 08:33 Dose: 12.5 mg Pravastatin Sodium (Pravastatin Sod 40 Mg Tab) 40 mg PO HS [facility] Stop: 03/22/22 20:59 Last Admin: 02/20/22 21:07 Dose: 40 mg Quetiapine Fumarate (Quetiapine Fumarate 25 Mg Tablet) 50 mg PO BID [facility] Stop: 03/22/22 08:59 Last Admin: 02/21/22 08:33 Dose: 50 mg Venlafaxine HCl (Venlafaxine Hcl Xr 75 Mg Capxr) [facility] Stop: 03/22/22 08:59 Last Admin: 02/21/22 08:33 Dose: 75 mg Venlafaxine HCl (Venlafaxine Hcl Xr 150 Mg Capxr) 150 mg PO QAM [facility] Stop: 03/22/22 08:59 Last Admin: 02/21/22 08:33 Dose: 150 mg Warfarin Sodium (Warfarin Sod 4 Mg Tab) 4 mg PO DAILY@1600 [facility] Stop: 03/22/22 15:59 Last Admin: 02/20/22 16:05 Dose: 4 mg (1) Dyspnea Dyspnea type: shortness of breath Qualified Code(s): R06.02 - Shortness of breath
[2022-02-21] MEDS ORDERED: lisinopril 20 MG TAB PO STA (16:03)
--- NOTE | 2022-02-21 16:05 | Cardiology Progress Note ---
Date of Service February 21, 2022 Assessment & Plan (1) Acute diastolic CHF (congestive heart failure), NYHA class 4: (2) Critical aortic valve stenosis: (3) Hypoxemia: (4) Dyspnea: (5) Pulmonary edema: (6) Chronic a-fib: (7) Acute renal failure superimposed on stage 3a chronic kidney disease: Plan Review of echocardiogram now shows that she has critical aortic stenosis with a maximum velocity of 5.8 m/s and a mean pressure gradient of 84 mmHg, both of which are remarkably abnormal She does present in acute decompensated diastolic heart failure likely due to her aortic stenosis. Has been started on IV diuresis and will continue. Strict I's and O's and daily weights on the same standing scale Follow and replete lites as necessary Will need to discuss patient treatment preference ongoing with TAVR evaluation versus hospice care ultimately Continue to monitor on telemetry Blood pressure significantly elevated this afternoon, will give additional lisinopril 20 mg x 1 now Given age and valvular disease would like to avoid hydralazine at all costs Should her pressures remain elevated later on tonight would use amlodipine for further blood pressure control. Admission and Anticipated Discharge Date Admission Date: February 19, 2022 Subjective Patient seen and examined, chart reviewed. Much more confused today. Does not remember why she came in the hospital in the first place. Denies any chest pain or shortness of breath. Review of Systems Review of Systems: All systems reviewed & are unremarkable except as noted in HPI & below Physical Exam Physical Exam: General: Awake, alert and oriented x 3. No acute distress. HEENT: Normocephalic, atraumatic. Pupils equal, round and reactive to light and accommodation. Extraocular muscles are intact. Anicteric sclera. Moist m ucous membranes. Neck: No JVD. No bruit. Cardiovascular: Regular. Positive S-4. Normal S-1 and S-2. No S-3. 3/6 mid to late systolic ejection murmur, greatest at the right sternal border, second intercostal space with radiation to the bilateral carotids. No rubs. Pulmonary: Clear to auscultation bilaterally. No rales, rhonchi, or wheezing. Abdomen: Bowel sounds x 4, soft. No rebound, guarding or tenderness. No organomegaly. Extremities: No clubbing, cyanosis or edema. +2 pedal pulses bilaterally. Skin: Warm and dry. Results & Data ([facility]) Vital Signs (Past 12 Hours) Vital Signs Temp Pulse Resp BP Pulse Ox Pulse Ox O2 Del Method 02/21/22 15:31 36.6 C 76 20 194/109 H 96 Nasal Cannula 02/21/22 15:00 94 02/21/22 11:33 36.6 C 65 20 134/64 98 Nasal Cannula 02/21/22 07:46 36.9 C 92 H 18 176/93 H 93 Nasal Cannula 02/21/22 07:15 79 18 97 Nasal Cannula O2 Del Method O2 Flow Rate O2 Flow Rate 02/21/22 15:31 4 02/21/22 15:00 Nasal Cannula 4 02/21/22 11:33 4 02/21/22 07:46 4 02/21/22 07:15 4 (1) Dyspnea Dyspnea type: shortness of breath Qualified Code(s): R06.02 - Shortness of breath (2) Pulmonary edema Chronicity: acute Qualified Code(s): J81.0 - Acute pulmonary edema (3) Acute renal failure superimposed on stage 3a chronic kidney disease Acute renal failure type: unspecified Qualified Code(s): N17.9 - Acute kidney failure, unspecified; N18.31 - Chronic kidney disease, stage 3a
[2022-02-21] MEDS: WARFARIN SOD 4 MG TAB PO SCH (16:33)
[2022-02-21] MEDS: PRAVASTATIN SOD 40 MG TAB PO SCH (20:15)
[2022-02-22] MEDS: LEVOTHYROXINE SODIUM 50 MCG TABLET PO SCH (05:52)
[2022-02-22] MEDS: Albuterol HFA 8 GM Inhaler (Combivent Respimat P&T Subs) INH SCH ×2 (06:56→19:33)
[2022-02-22] MEDS: Ipratropium HFA Inhaler (Combivent Respimat P&T Subs) INH SCH ×2 (06:57→19:33)
--- NOTE | 2022-02-22 07:22 | Hospitalist Progress Note ---
Date of Service February 22, 2022 Assessment & Plan (1) Hypoxemia: (2) Dyspnea: (3) Elevated troponin I level: (4) CHF (congestive heart failure): Plan: Acute decompensated diastolic heart failure likely due to her aortic stenosis. Patient presents with shortness of breath, hypoxia Since she had COVID in June, patient has been using supplemental oxygen In ED she is on 4 L, which seems to be somewhat increased Chest x-ray significant for pulmonary vascular congestion proBNP elevated Troponin elevated Patient denies any chest pain Patient likely presents with an acute CHF Received IV Lasix, IV Decadron, IV antibiotics and aspirin in the ED procalcitonin negative, for now we will hold antibiotic Blood culture pending Continue with IV Lasix twice daily Obtained echocardiogram Normal LV chamber size with severe concentric LVH. Normal LV systolic function, EF 60 to 65%. No segmental LV wall motion abnormalities are noted. Grade 3 diastolic dysfunction consistent with restrictive physiology. RV systolic function is reduced as assessed by tricuspid annular plane systolic excursion TAPSE less than 1.6 cm. Severe calcific aortic valve stenosis. VMI 5.8 m/s and PGM of 84 mmHg. Moderate aortic regurg. Calcified mitral apparatus causing mitral stenosis. There is moderate mitral regurg. There is mild mitral stenosis. Severe LA enlargement. Borderline pulmonary hypertension with a PA systolic pressure of 35 mmHg assuming RA pressure of 3 m mercury. Close I's and O's monitoring Cardiology consulted Review of echocardiogram now shows that she has critical aortic stenosis with a maximum velocity of 5.8 m/s and a mean pressure gradient of 84 mmHg, both of which are remarkably abnormal She does present in acute decompensated diastolic heart failure likely due to her aortic stenosis. Has been started onIV diuresis and will continue. Will need to discuss patient treatment preference ongoing with TAVR evaluation versus hospice care ultimately Continue to monitor on telemetry Hypertension Patient found to be quite hypertensive in the ED Received IV Lasix, continue to closely monitor blood pressure Continue home medications Patient hypertensive, lisinopril increased. Will avoid hydralazine. If needed, may need to add amlodipine History of A. fib on warfarin INR therapeutic, continue to monitor INR Continue Toprol Rate control CKD stage III Continue to monitor creatinine/renal function DVT ppx: On warfarin CODE STATUS DNR/DNI -discussed with the patient Admission and Anticipated Discharge Date Admission Date: February 19, 2022 Subjective Patient seen in follow-up of shortness of breath, secondary to CHF, severe Currently sitting up in chair, in no acute distress, on supplemental oxygen via nasal cannula Pt was little confused yesterday, she is feeling much better today No fevers, chills, + some non productive cough, no abdominal pain, nausea or vomiting, no chest pain or palpitation Review of Systems Review of Systems: All systems reviewed & are unremarkable except as noted in Subjective Physical Exam Physical Exam: Constitutional:J obese F in NAD on suppl. O2 via NC Eyes: PERRL, EOMI, conju nctivae normal, an icteric sclerae ENMT: external ear and n ose normal, oropha rynx normal Neck: + thick neck Respiratory: normal respiratory effort, lungs meche ar to auscultation , minimal crackles , no wheezing Cardiovascular:J RRR, +syst. murmur , minimal LE edema Chest (Breasts): Chest: normal insp ection of chest Gastrointestinal ( Abdomen): normal bowel sound s, soft, nontender Musculoskeletal: extremities motor strength 5/5 (mini mal LE edema b/l) Skin: no rashes, warm an d dry Neurologic: PERRL, EOMI, no fa ce palsy, no dysar thria, moves extre mities Psychiatric: A+Ox3, euthymic af fect Lymphatic: + lymphedema (mil d LE edema b/l) Results & Data Results & Data ([facility]) Vital Signs (Past 12 Hours) Vital Signs Temp Pulse Pulse Resp BP Pulse Ox O2 Del Method 02/22/22 07:11 82 18 93 Nasal Cannula 02/22/22 03:35 36.6 C 111 H 16 151/91 H 95 02/21/22 23:44 71 02/21/22 23:31 36.5 C 95 H 16 153/66 H 93 02/21/22 19:58 Nasal Cannula 02/21/22 19:42 86 22 96 Nasal Cannula O2 Flow Rate 02/22/22 07:11 4 02/22/22 03:35 02/21/22 23:44 02/21/22 23:31 02/21/22 19:58 4 02/21/22 19:42 4 Laboratory Results 02/22/22 02/22/22 Range/Units 09:44 09:44 PT 21.8 H (9.0-12.0) Seconds INR 2.1 H (0.9-1.1) Sodium 144 (136-145) mmol/L Potassium 4.2 (3.5-5.1) mmol/L Chloride 98 (98-107) mmol/L Carbon Dioxide 45 H* (21-32) mmol/L Anion Gap 1 L (3-11) BUN 29 H (6-23) mg/dl Creatinine 1.25 H (0.6-1.2) mg/dl Est Cr Clr Drug Dosing 38.5 ml/min Est GFR ( Amer) 45.4 ml/min Est GFR (Non-Af Amer) 39.2 ml/min BUN/Creatinine Ratio 23.2 H (10-20) Glucose 155 H (70-99(Fasting)) mg/dl Calcium 8.9 (8.5-10.1) mg/dl Phosphorus 3.3 D (2.5-4.9) mg/dl Magnesium 2.1 (1.7-2.4) mg/dl Medications Administered Current Inpatient Medications Acetaminophen (Acetaminophen 325 Mg Tab) 650 mg PO Q4H PRN PRN Reason: Pain or Fever Stop: 03/21/22 15:43 Albuterol (Albut/Ipratrop 3mg/0.5mg Neb 3 Ml Vial) 3 ml INH Q6H PRN; Protocol PRN Reason: Shortness Of Breath Or Wheezin Stop: 03/22/22 06:54 Albuterol (Albuterol Hfa 8 Gm Inhaler (Combivent Respimat P&T Subs)) 1 puffs INH BIDR LUCIE Stop: 03/22/22 18:59 Last Admin: 02/22/22 06:56 Dose: 1 puffs Folic Acid (Folic Acid 1 Mg Tab) 1 mg PO QAM [facility] Stop: 03/22/22 08:59 Last Admin: 02/21/22 08:34 Dose: 1 mg Guaifenesin (Guaifenesin 600 Mg Tabcr) 600 mg PO BID [facility] Stop: 03/22/22 08:59 Last Admin: 02/21/22 20:14 Dose: 600 mg Ipratropium [place] (Ipratropium Hfa Inhaler (Combivent Respimat P&T Subs)) 1 puffs INH BIDR LUCIE Stop: 03/22/22 18:59 Last Admin: 02/22/22 06:57 Dose: 1 puffs Labetalol HCl (Labetalol Hcl Iv 5 Mg/Ml 20ml) 10 mg IV Q4H PRN PRN Reason: Hypertension Stop: 03/21/22 19:41 Last Admin: 02/20/22 03:51 Dose: 10 mg Levothyroxine Sodium (Levothyroxine Sodium 50 Mcg Tablet) 50 mcg PO DAILYBB [facility] Stop: 03/22/22 07:14 Last Admin: 02/22/22 05:52 Dose: 50 mcg Lisinopril (Lisinopril 5 Mg Tab) 5 mg PO QAM [facility] Stop: 03/22/22 08:59 Last Admin: 02/21/22 08:33 Dose: 5 mg Metoprolol Tartrate (Metoprolol Tartrate 25 Mg Tab) 12.5 mg PO BID [facility] Stop: 03/22/22 08:59 Last Admin: 02/21/22 20:15 Dose: 12.5 mg Pravastatin Sodium (Pravastatin Sod 40 Mg Tab) 40 mg PO HS [facility] Stop: 03/22/22 20:59 Last Admin: 02/21/22 20:15 Dose: 40 mg Quetiapine Fumarate (Quetiapine Fumarate 25 Mg Tablet) 50 mg PO BID [facility] Stop: 03/22/22 08:59 Last Admin: 02/21/22 20:14 Dose: 50 mg Venlafaxine HCl (Venlafaxine Hcl Xr 75 Mg Capxr) 75 mg PO QAM [facility] Stop: 03/22/22 08:59 Last Admin: 02/21/22 08:33 Dose: 75 mg Venlafaxine HCl (Venlafaxine Hcl Xr 150 Mg Capxr) 150 mg PO QAM [facility] Stop: 03/22/22 08:59 Last Admin: 02/21/22 08:33 Dose: 150 mg Warfarin Sodium (Warfarin Sod 4 Mg Tab) 4 mg PO DAILY@1600 [facility] Stop: 03/22/22 15:59 Last Admin: 02/21/22 16:33 Dose: 4 mg (1) Dyspnea Dyspnea type: shortness of breath Qualified Code(s): R06.02 - Shortness of breath
[2022-02-22] MEDS: VENLAFAXINE HCL XR 75 MG CAPXR PO SCH (07:52)
[2022-02-22] MEDS: QUEtiapine FUMARATE 25 MG TABLET PO SCH ×2 (07:53→20:02)
[2022-02-22] MEDS: lisinopril 5 MG TAB PO SCH (07:53)
[2022-02-22] MEDS: FOLIC ACID 1 MG TAB PO SCH (07:53)
[2022-02-22] MEDS: guaiFENesin 600 MG TABCR PO SCH ×2 (07:53→20:02)
[2022-02-22] MEDS: METOPROLOL TARTRATE 25 MG TAB PO SCH ×2 (07:53→20:02)
[2022-02-22] MEDS: VENLAFAXINE HCL XR 150 MG CAPXR PO SCH (07:53)
[2022-02-22] MEDS ORDERED: FUROSEMIDE 40 MG/4 ML VIAL IV STA (08:20)
[2022-02-22] MEDS ORDERED: lisinopril 10 MG TAB PO ONE (08:30)
[2022-02-22 10:19] LABS: INR 2.1 (0.9-1.1); Prothrombin Time 21.8 Seconds (9.0-12.0)
[2022-02-22 10:36] LABS: BUN Creatinine Ratio 23.2 (10-20); Calcium 8.9 mg/dl (8.5-10.1); Creatinine Clr Calc Pharmacy 38.5 ml/min; Est GFR (African American) 45.4 ml/min; Est GFR (Non-African American) 39.2 ml/min; Magnesium 2.1 mg/dl (1.7-2.4); Phosphorus 3.3 mg/dl (2.5-4.9); Potassium 4.2 mmol/L (3.5-5.1)
--- NOTE | 2022-02-22 14:14 | Cardiology Progress Note ---
Date of Service February 22, 2022 Assessment & Plan (1) Acute diastolic CHF (congestive heart failure), NYHA class 4: (2) Critical aortic valve stenosis: (3) Hypoxemia: (4) Dyspnea: (5) Pulmonary edema: (6) Chronic a-fib: (7) Acute renal failure superimposed on stage 3a chronic kidney disease: Plan Review of echocardiogram now shows that she has critical aortic stenosis with a maximum velocity of 5.8 m/s and a mean pressure gradient of 84 mmHg, both of which are remarkably abnormal She does present in acute decompensated diastolic heart failure likely due to her aortic stenosis. Has been started on IV diuresis and will continue. Strict I's and O's and daily weights on the same standing scale Follow and replete lites as necessary Will need to discuss patient treatment preference ongoing with TAVR evaluation versus hospice care ultimately Continue to monitor on telemetry Blood pressure remains elevated, will increase daily lisinopril to 40mg in AM Given age and valvular disease would like to avoid hydralazine at all costs Should her pressures remain elevated later on tonight would use amlodipine for further blood pressure control. Admission and Anticipated Discharge Date Admission Date: February 19, 2022 Subjective Pt seen and examined, chart reviewed. OOB in chair. States that she feels well. Denies cp, sob or palpitations. Review of Systems Review of Systems: All systems reviewed & are unremarkable except as noted in HPI & below Physical Exam Physical Exam: General: Awake, alert and oriented x 3. No acute distress. HEENT: Normocephalic, atraumatic. Pupils equal, round and reactive to light and accommodation. Extraocular muscles are intact. Anicteric sclera. Moist mucous membranes. Neck: No JVD. No bruit. Cardiovascular: Regular. Positive S-4. Normal S-1 and S-2. No S-3. 3/6 mid to late systolic ejection murmur, greatest at the right sternal border, second intercostal space with radiation to the bilateral carotids. No rubs. Pulmonary: Clear to auscultation bilaterally. No rales, rhonchi, or wheezing. Abdomen: Bowel sounds x 4, soft. No rebound, guarding or tenderness. No organomegaly. Extremities: No clubbing, cyanosis or edema. +2 pedal pulses bilaterally. Skin: Warm and dry. Results & Data ([facility]) Vital Signs (Past 12 Hours) Vital Signs Temp Pulse Resp BP Pulse Ox O2 Del Method O2 Flow Rate 02/22/22 11:31 36.8 C 65 16 155/77 H 98 Nasal Cannula 4 02/22/22 10:50 77 18 155/77 H 95 Nasal Cannula 4 02/22/22 07:30 Nasal Cannula 4 02/22/22 08:03 36.8 C 87 16 184/70 H 95 Nasal Cannula 4 02/22/22 07:11 82 18 93 Nasal Cannula 4 02/22/22 03:35 36.6 C 111 H 16 151/91 H 95 (1) Dyspnea Dyspnea type: shortness of breath Qualified Code(s): R06.02 - Shortness of breath (2) Pulmonary edema Chronicity: acute Qualified Code(s): J81.0 - Acute pulmonary edema (3) Acute renal failure superimposed on stage 3a chronic kidney disease Acute renal failure type: unspecified Qualified Code(s): N17.9 - Acute kidney failure, unspecified; N18.31 - Chronic kidney disease, stage 3a
[2022-02-22] MEDS: WARFARIN SOD 4 MG TAB PO SCH (15:33)
[2022-02-22] MEDS: FUROSEMIDE 40 MG/4 ML VIAL IV SCH (15:34)
[2022-02-22] MEDS: PRAVASTATIN SOD 40 MG TAB PO SCH (20:02)
[2022-02-23] MEDS: LEVOTHYROXINE SODIUM 50 MCG TABLET PO SCH (06:01)
[2022-02-23 07:14] LABS: Prothrombin Time 20.3 Seconds (9.0-12.0)
[2022-02-23 07:28] LABS: BUN Creatinine Ratio 22.4 (10-20); Blood Urea Nitrogen 26 mg/dl (6-23); Calcium 9.2 mg/dl (8.5-10.1); Carbon Dioxide > 45 mmol/L (21-32); Chloride 95 mmol/L (98-107); Creatinine Clr Calc Pharmacy 41.5 ml/min; Est GFR (African American) 49.7 ml/min; Est GFR (Non-African American) 42.9 ml/min; Glucose 89 mg/dl (70-99(Fasting)); Magnesium 2.1 mg/dl (1.7-2.4); Phosphorus 3.5 mg/dl (2.5-4.9); Potassium 4.2 mmol/L (3.5-5.1); Sodium 142 mmol/L (136-145)
[2022-02-23] MEDS: Ipratropium HFA Inhaler (Combivent Respimat P&T Subs) INH SCH ×2 (07:28→19:48)
[2022-02-23] MEDS: Albuterol HFA 8 GM Inhaler (Combivent Respimat P&T Subs) INH SCH ×2 (07:28→19:48)
[2022-02-23] MEDS: METOPROLOL TARTRATE 25 MG TAB PO SCH ×2 (07:54→20:36)
[2022-02-23] MEDS: guaiFENesin 600 MG TABCR PO SCH ×2 (07:54→20:32)
[2022-02-23] MEDS: FUROSEMIDE 40 MG/4 ML VIAL IV SCH (07:55)
[2022-02-23] MEDS: VENLAFAXINE HCL XR 150 MG CAPXR PO SCH (07:55)
[2022-02-23] MEDS: VENLAFAXINE HCL XR 75 MG CAPXR PO SCH (07:55)
[2022-02-23] MEDS: lisinopril 40 MG TAB PO SCH (07:55)
[2022-02-23] MEDS: QUEtiapine FUMARATE 25 MG TABLET PO SCH ×2 (07:55→20:33)
[2022-02-23] MEDS: FOLIC ACID 1 MG TAB PO SCH (07:55)
[2022-02-23] MEDS ORDERED: lisinopril 5 MG TAB PO SCH (09:00)
[2022-02-23] MEDS ORDERED: amLODIPine BESYLATE 5 MG TAB PO ONE (09:00)
--- NOTE | 2022-02-23 10:17 | Cardiology Progress Note ---
Date of Service February 23, 2022 Assessment & Plan (1) Acute diastolic CHF (congestive heart failure), NYHA class 4: (2) Critical aortic valve stenosis: (3) Hypoxemia: (4) Dyspnea: (5) Pulmonary edema: (6) Chronic a-fib: (7) Acute renal failure superimposed on stage 3a chronic kidney disease: Plan Review of echocardiogram now shows that she has critical aortic stenosis with a maximum velocity of 5.8 m/s and a mean pressure gradient of 84 mmHg, both of which are remarkably abnormal She does present in acute decompensated diastolic heart failure likely due to her aortic stenosis. Has been on IV diuresis, clinically improved. I suspect I/O's are inaccurate HCO3 levels significantly elevated, I have d/c'ed lasix and have asked our nephrology colleagues to evaluate Will need to discuss patient treatment preference ongoing with TAVR evaluation versus hospice care ultimately Blood pressure remains elevated, I increased her lisinopril to 40mg this am I have also started amlodipine will also change metoprolol tartrate to carvedilol Given age and valvular disease would like to avoid hydralazine at all costs Should her pressures remain elevated later on tonight would use amlodipine for further blood pressure control. Admission and Anticipated Discharge Date Admission Date: February 19, 2022 Physical Exam Physical Exam: General: Awake, alert and oriented x 3. No acute distress. HEENT: Normocephalic, atraumatic. Pupils equal, round and reactive to light and accommodation. Extraocular muscles are intact. Anicteric sclera. Moist mucous membranes. Neck: No JVD. No bruit. Cardiovascular: Regular. Positive S-4. Normal S-1 and S-2. No S-3. 3/6 mid to late systolic ejection murmur, greatest at the right sternal border, second intercostal space with radiation to the bilateral carotids. No rubs. Pulmonary: Clear to auscultation bilaterally. No rales, rhonchi, or wheezing. Abdomen: Bowel sounds x 4, soft. No rebound, guarding or tenderness. No organomegaly. Extremities: No clubbing, cyanosis or edema. +2 pedal pulses bilaterally. Skin: Warm and dry. Results & Data ([facility]) Vital Signs (Past 12 Hours) Vital Signs Temp Pulse Pulse Resp BP Pulse Ox O2 Del Method 02/23/22 07:43 36.9 C 88 18 182/137 H 90 Nasal Cannula 02/23/22 07:28 90 22 98 Nasal Cannula 02/23/22 07:25 86 02/23/22 04:46 36.5 C 82 20 112/76 94 Nasal Cannula 02/22/22 23:29 68 02/22/22 22:59 76 18 170/66 H 94 Nasal Cannula O2 Flow Rate 02/23/22 07:43 4 02/23/22 07:28 4 02/23/22 07:25 02/23/22 04:46 4.0 02/22/22 23:29 02/22/22 22:59 4 (1) Dyspnea Dyspnea type: shortness of breath Qualified Code(s): R06.02 - Shortness of breath (2) Pulmonary edema Chronicity: acute Qualified Code(s): J81.0 - Acute pulmonary edema (3) Acute renal failure superimposed on stage 3a chronic kidney disease Acute renal failure type: unspecified Qualified Code(s): N17.9 - Acute kidney failure, unspecified; N18.31 - Chronic kidney disease, stage 3a
--- NOTE | 2022-02-23 10:37 | Nephrology Consultation ---
Date of Consultation February 23, 2022 Assessment & Plan (1) Metabolic alkalosis with respiratory acidosis: pt on relatively small diuretic dose prior to admission (lasix 20 mg bid) and since arrival but with already elevated baseline bicarbonate and with exaggerated response to relatively minimal doses of IV lasix. Notably K is wnl, despite no supplementation at all after daily lasix doses above. no losses of upper GI secretions so this almost has to be diuretic driven w/ some underlying propensity to metabolic alkalosis. severe metabolic alkalosis cause unclear is limiting her needed diuresis. atypically w/ high normal potassium. >ABG ordered/reviewed > marked hypoxemia; also some underlying respiratory acidosis present >ordered urine chemistries >so far no symptoms of metabolic alkalosis (agitation, seizures, disorientation, coma) ; no hx of liver disease limiting acetazolamide >ordered ivelisse/renin levels for AM to eval for things like Cushings dz >ordered CXR to f/u on congestive failure -lasix on hold for now; did have dose today >will give acetazolamide 250 mg IV q 6h x 4 doses and f/u labs (2) Hypoxemia: per primary service/respiratory > will alert them to BG results; low threshold for pulm consult History of Present Illness Reason for Consultation: metabolic alkalosis Requesting Physician: Dr Schultz Attending Physician: Bertrand Yost MD History of Present Illness 87 y/o F whom I'm asked to see for metabolic alkalosis was admitted 02/19 with volume overload/acute decompensated diastolic HF from newly discovered critical aortic stenosis and has been undergoing diuresis. Her C02 today is > 45; 42-45 from 02/20-02/22; was 36 on presentation. Normal potassium and renal function. PMH includes A. fib on warfarin, critical aortic stenosis, hypertension, hyperlipidemia, asthma, depression/anxiety, CKD stage IIIB (baseline creatinine 1.1-1.2), chronic respiratory failure on 02NC since Covid in June 2021. She denies hx of MARICRUZ. HTN ongoing since admission >> ACEI upped to 40 mg daily today and CCB started w/ change from metoprolol to coreg. She is also getting lasix 40 mg IV bid, last dose this am. Pt tells me she still feels dyspneic but thinks breathing improving. no n/v, no worsening mm weakness, no new/worrisome voiding sx, no n/v/diarrhea Was on 20 mg po bid lasix prior to arrival; since arrival has had following IV lasix dosing 23: 40 24: 40 26: 40 x 2 27: 40 Allergies Allergy/AdvReac Type Severity Reaction Status Date / Time levofloxacin [From Levaquin] Allergy Intermediate drug Verified 02/19/22 16:40 eruption BLE atorvastatin [From Lipitor] Allergy Unknown Unknown Unverified 08/28/18 12:43 doxycycline Allergy Unknown Unknown Unverified 08/28/18 12:43 penicillin G Allergy Unknown Unknown Unverified 08/28/18 12:43 Sulfa (Sulfonamide Allergy Unknown Unknown Unverified 08/28/18 12:43 Antibiotics) Home Medications Medication Instructions Recorded Confirmed Type cholecalciferol (vitamin D3) 125 5,000 unit PO QAM 08/28/18 02/19/22 History mcg (5,000 unit) tablet (Vitamin D3) folic acid 1 mg tablet 1 mg PO QAM 08/28/18 02/19/22 History furosemide 20 mg tablet 20 mg PO BID 08/28/18 02/19/22 History levothyroxine 50 mcg tablet 50 mcg PO QAM 08/28/18 02/19/22 History lisinopril 10 mg tablet 5 mg PO QAM 08/28/18 02/19/22 History pravastatin 40 mg tablet 40 mg PO HS 08/28/18 02/19/22 History quetiapine 50 mg tablet 50 mg PO BID 08/28/18 02/19/22 History venlafaxine 150 mg 150 mg PO QAM 08/28/18 02/19/22 History capsule,extended release 24 hr venlafaxine 75 mg capsule,extended 75 mg PO QAM 08/28/18 02/19/22 History release 24 hr guaifenesin 600 mg tablet, 600 mg PO BID 07/22/20 02/19/22 History extended release 12 hr (Mucinex) acetaminophen 325 mg tablet 650 mg PO Q4 PRN Pain 02/19/22 02/19/22 History biotin 10,000 mcg disintegrating 10,000 mcg PO DAILY 02/19/22 02/19/22 History tablet dextromethorphan-guaifenesin 10 5 ml PO Q4H PRN Cough 02/19/22 02/19/22 History mg-100 mg/5 mL oral syrup (Tussin DM) ipratropium 0.5 mg-albuterol 3 mg 3 ml inhalation Q6H PRN Shortness 02/19/22 02/19/22 History (2.5 mg base)/3 mL nebulization Of Breath Or Wheezing soln ipratropium 20 mcg-albuterol 100 1 puff inhalation .EVERY 2 HOURS 02/19/22 02/19/22 History mcg/actuation mist for inhalation PRN Shortness Of Breath (Combivent Respimat) ipratropium 20 mcg-albuterol 100 1 puff inhalation BID 02/19/22 02/19/22 History mcg/actuation mist for inhalation (Combivent Respimat) menthol 16 % topical liquid (Icy 1 ea topical BID PRN knee pain 02/19/22 02/19/22 History Hot No Mess) metoprolol tartrate 25 mg tablet 12.5 mg PO BID 02/19/22 02/19/22 History warfarin 4 mg tablet 4 mg PO QPM 02/19/22 02/19/22 History Patient History Medical History Asthma Atrial fibrillation CKD (chronic kidney disease) stage 3, GFR 30-59 ml/min Depression with anxiety Elevated troponin HLD (hyperlipidemia) HTN (hypertension) Surgical History History of appendectomy History of foot surgery R foot Osteotomy History of partial hysterectomy Family History Sister Breast cancer Mother Hypertension Social History Smoking Status: Former smoker Second Hand Exposure: No; Hx Alcohol Use: No Hx Substance Use: No Preferred Language: Albanian Communication Ability: Effective Manager Diesel Required: No Beliefs That Will Affect Care: None marital status: / Current Living Situation: Senior Care Current Living Situation Comment: [facility] Other Information That Helps Us Care for You: No Feels Safe at Home: Yes Safety Concerns: Feels Safe At This Time Assistive Devices: Oxygen - Continuous and Walker Review of Systems Review of Systems: All systems reviewed & are unremarkable except as noted in HPI & below Physical Exam Constitutional: well developed, well nourished, + obese and cooperative; no acute distress Eyes: EOM intact bilaterally ENMT: Ears: no external ear abnormality Nose: no external nose abnormality Mouth: + dry oral mucous membranes Neck: no nuchal rigidity Respiratory: + labored breathing (karen w/ exam maneuvers) and + tachypneic; + not able to speak in complete sentence Auscultation: + diminished lung sounds and + wheezes (exp) Cardiovascular: Rate/Rhythm: regular rate and regular rhythm Heart Sounds: + murmur Extremities: + edema Gastrointestinal (Abdomen): Inspection/Auscultation: normal bowel sounds Percussion/Palpation: abdomen soft; abdomen nontender Musculoskeletal: Extremities: strength 5/5 throughout Skin: no rashes, warm and dry Neurologic: cui, fluent speech, no tremor Psychiatric: Orientation: oriented x 3 Speech: normal rate/rhythm/volume of speech Affect: euthymic affect Results & Data ([facility]) Vital Signs (Past 12 Hours) Vital Signs Temp Pulse Pulse Resp BP Pulse Ox O2 Del Method 02/23/22 07:43 36.9 C 88 18 182/137 H 90 Nasal Cannula 02/23/22 07:28 90 22 98 Nasal Cannula 02/23/22 07:25 86 02/23/22 04:46 36.5 C 82 20 112/76 94 Nasal Cannula 02/22/22 23:29 68 02/22/22 22:59 76 18 170/66 H 94 Nasal Cannula O2 Flow Rate 02/23/22 07:43 4 02/23/22 07:28 4 02/23/22 07:25 02/23/22 04:46 4.0 02/22/22 23:29 02/22/22 22:59 4 Laboratory Results 02/20/22 06:07 02/23/22 06:47
[2022-02-23 11:59] LABS: Base Excess ABG 19.3 mEq/L (-9-1.8); HCO3 ABG 47 mmol/L (19-24); Oxygen Saturation ABG 93.6 % (90-95); PCO2 ABG 68 mmHg (35-46); PO2 ABG 60 mmHg (80-95); pH ABG 7.45 (7.35-7.45)
[2022-02-23 12:17] LABS: Allen Test Pos (Pos)
--- NOTE | 2022-02-23 16:11 | Hospitalist Progress Note ---
Date of Service February 23, 2022 Assessment & Plan (1) Hypoxemia: (2) Dyspnea: (3) Elevated troponin I level: (4) CHF (congestive heart failure): Plan: Acute decompensated diastolic heart failure likely due to her aortic stenosis. Patient presents with shortness of breath, hypoxia Since she had COVID in June, patient has been using supplemental oxygen In ED she is on 4 L, which seems to be somewhat increased Chest x-ray significant for pulmonary vascular congestion BNP elevated at 1754 Troponin elevated at 399, then 315 Patient denies any chest pain Patient likely presents with an acute CHF Received IV Lasix, IV Decadron, IV antibiotics and aspirin in the ED procalcitonin negative, for now we will hold antibiotic Blood culture no growth IV Lasix has been placed on hold Obtained echocardiogram Normal LV chamber size with severe concentric LVH. Normal LV systolic function, EF 60 to 65%. No segmental LV wall motion abnormalities are noted. Grade 3 diastolic dysfunction consistent with restrictive physiology. RV systolic function is reduced as assessed by tricuspid annular plane systolic excursion TAPSE less than 1.6 cm. Severe calcific aortic valve stenosis. VMI 5.8 m/s and PGM of 84 mmHg. Moderate aortic regurg. Calcified mitral apparatus causing mitral stenosis. There is moderate mitral regurg. There is mild mitral stenosis. Severe LA enlargement. Borderline pulmonary hypertension with a PA systolic pressure of 35 mmHg assuming RA pressure of 3 m mercury. Close I's and O's monitoring Cardiology consulted Review of echocardiogram now shows that she has critical aortic stenosis with a maximum velocity of 5.8 m/s and a mean pressure gradient of 84 mmHg, both of which are remarkably abnormal She does present in acute decompensated diastolic heart failure likely due to her aortic stenosis. Will need to discuss patient treatment preference ongoing with TAVR evaluation versus hospice care ultimately Continue to monitor on telemetry Metabolic Alkalosis C02 today is > 45; 42-45 from 02/20-02/22; was 36 on presentation Possible related to diuretic Nephrology on board Hypertension Patient found to be quite hypertensive in the ED Received IV Lasix, continue to closely monitor blood pressure Continue Lisinopril 40mg If needed, may need to add amlodipine History of A. fib on warfarin INR therapeutic, continue to monitor INR Continue Toprol Rate control CKD stage III Continue to monitor creatinine/renal function DVT ppx: On warfarin CODE STATUS DNR/DNI -discussed with the patient Admission and Anticipated Discharge Date Admission Date: February 19, 2022 Subjective Pt was seen and examined for follow of SOB Lying in bed with no acute distress watching TV Pt said that her breathing is getting better She said that she does have SOB with exertion Denies any chest pain, palpitation, dizziness and SOB Review of Systems Review of Systems: All systems reviewed & are unremarkable except as noted in Subjective Physical Exam Physical Exam: General- No acute distress Head- atraumatic Eyes- PERRL, EOMI, ENT- oropharynx clear Neck- supple, no JVD Lungs- clear to auscultation Heart- regular rhythm; +systolic murmur Abdomen- normal bowel sounds, soft, nontender Extremities- no calf tenderness Neuro- alert, oriented x 3; PERRL, EOMI; no facial palsy; no dysarthria Skin- warm & dry Results & Data Results & Data ([facility]) Vital Signs (Past 12 Hours) Vital Signs Temp Pulse Pulse Resp BP Pulse Ox O2 Del Method 02/23/22 13:58 87 L 02/23/22 11:59 36.9 C 72 18 172/83 H 93 Nasal Cannula 02/23/22 07:45 Nasal Cannula 02/23/22 07:43 36.9 C 88 18 182/137 H 90 Nasal Cannula 02/23/22 07:28 90 22 98 Nasal Cannula 02/23/22 07:25 86 02/23/22 04:46 36.5 C 82 20 112/76 94 Nasal Cannula O2 Flow Rate 02/23/22 13:58 02/23/22 11:59 4 02/23/22 07:45 4 02/23/22 07:43 4 02/23/22 07:28 4 02/23/22 07:25 02/23/22 04:46 4.0 (1) Dyspnea Dyspnea type: shortness of breath Qualified Code(s): R06.02 - Shortness of breath
[2022-02-23] MEDS: WARFARIN SOD 4 MG TAB PO SCH (16:47)
[2022-02-23] MEDS: acetaZOLAMIDE 250 MG in SYRINGE 0 ML IV SCH (18:29)
--- NOTE | 2022-02-23 18:31 | XRay Report ---
XR chest 1V portable HISTORY: 87 years-old Female f/u congestive HF acute shortness of breath COMPARISON: 02/19/2022 TECHNIQUE: Portable AP view of the chest FINDINGS: The cardiac silhouette is enlarged. Atherosclerosis of the thoracic aorta. Pulmonary vascular congest ion with interstitial coarsening. Small pleural effusions with bibasilar consolidation. No significan t change the prior study. No pneumothorax. Degenerative changes of the shoulders and spine. IMPRESSION: 1. Cardiomegaly with persistent pulmonary edema. 2. Small pleural effusions with unchanged bibasilar opacities. ACT 112: Negative or not required by law. The above report was generated using voice recognition software. It may contain grammatical, syntax o r spelling errors. Electronically signed by: Noah Smith M.D. 02/23/2022 6:29 PM
[2022-02-23] MEDS: PRAVASTATIN SOD 40 MG TAB PO SCH (20:33)
[2022-02-23 22:03] LABS: Appearance Urine Cloudy (Clear); Bacteria Urine Automated Negative (Negative); Bilirubin Urine Negative (Negative); Blood Urine Negative (Negative); Cast Urine Automated 0 /lpf (0-5); Color Urine Yellow; Epithelial Cell Urine Auto >30 /lpf (0-5); Glucose Urine UA Negative (Negative); Ketones Urine Negative (Negative); Leukocyte Esterase Urine Negative (Negative); Nitrite Urine Negative (Negative); RBC Urine Automated 0-4 /hpf (0-4); Specific Gravity Urine 1.015 (1.000-1.030); Urobilinogen Urine Negative (Negative); pH Urine >= 9.0 (4.5-7.5)
[2022-02-23 22:10] LABS: Protein Urine 3+ (Negative)
[2022-02-23 22:11] LABS: Chloride Random Urine 47 mmol/L; Sodium Random Urine 144 mmol/L
[2022-02-24] MEDS: LEVOTHYROXINE SODIUM 50 MCG TABLET PO SCH (05:39)
[2022-02-24] MEDS: acetaZOLAMIDE 250 MG in SYRINGE 0 ML IV SCH ×3 (05:39→12:10)
[2022-02-24 07:10] LABS: INR 1.7 (0.9-1.1)
[2022-02-24] MEDS: Albuterol HFA 8 GM Inhaler (Combivent Respimat P&T Subs) INH SCH ×2 (07:27→19:48)
[2022-02-24] MEDS: Ipratropium HFA Inhaler (Combivent Respimat P&T Subs) INH SCH ×2 (07:27→19:48)
[2022-02-24 07:28] LABS: BUN Creatinine Ratio 22.1 (10-20); Calcium 9.1 mg/dl (8.5-10.1); Creatinine Clr Calc Pharmacy 41.9 ml/min; Est GFR (African American) 51.3 ml/min; Est GFR (Non-African American) 44.3 ml/min
[2022-02-24] MEDS: METOPROLOL TARTRATE 25 MG TAB PO SCH ×2 (08:17→20:23)
[2022-02-24] MEDS: QUEtiapine FUMARATE 25 MG TABLET PO SCH ×2 (08:17→20:24)
[2022-02-24] MEDS: VENLAFAXINE HCL XR 75 MG CAPXR PO SCH (08:18)
[2022-02-24] MEDS: guaiFENesin 600 MG TABCR PO SCH ×2 (08:18→20:24)
[2022-02-24] MEDS: lisinopril 40 MG TAB PO SCH (08:18)
[2022-02-24] MEDS: FOLIC ACID 1 MG TAB PO SCH (08:19)
[2022-02-24] MEDS: VENLAFAXINE HCL XR 150 MG CAPXR PO SCH (08:19)
--- NOTE | 2022-02-24 10:29 | Cardiology Progress Note ---
Date of Service February 24, 2022 Assessment & Plan (1) Acute diastolic CHF (congestive heart failure), NYHA class 4: (2) Critical aortic valve stenosis: (3) Hypoxemia: (4) Dyspnea: (5) Pulmonary edema: (6) Chronic a-fib: (7) Acute renal failure superimposed on stage 3a chronic kidney disease: Plan Review of echocardiogram now shows that she has critical aortic stenosis with a maximum velocity of 5.8 m/s and a mean pressure gradient of 84 mmHg, both of which are remarkably abnormal She does present in acute decompensated diastolic heart failure likely due to her aortic stenosis. Has been on IV diuresis, clinically improved. I suspect I/O's are inaccurate HCO3 levels significantly elevated, I have d/c'ed lasix and have asked our nephrology colleagues to evaluate Will need to discuss patient treatment preference ongoing with TAVR evaluation versus hospice care ultimately Blood pressure is now labile I have also started amlodipine cont current regimen Given age and valvular disease would like to avoid hydralazine at all costs Admission and Anticipated Discharge Date Admission Date: February 19, 2022 Subjective Patient seen and examined, chart reviewed. States that she feels okay just tired. Denies cardiac complaints of chest pain, shortness of breath or palpitations. Review of Systems Review of Systems: All systems reviewed & are unremarkable except as noted in HPI & below Physical Exam Physical Exam: General: Awake, alert and oriented x 3. No acute distress. HEENT: Normocephalic, atraumatic. Pupils equal, round and reactive to light and accommodation. Extraocular muscles are intact. Anicteric sclera. Moist mucous membranes. Neck: No JVD. No bruit. Cardiovascular: Regular. Positive S-4. Normal S-1 and S-2. No S-3. 3/6 mid to late systolic ejection murmur, greatest at the right sternal border, second intercostal space with radiation to the bilateral carotids. No rubs. Pulmonary: Clear to auscultation bilaterally. No rales, rhonchi, or wheezing. Abdomen: Bowel sounds x 4, soft. No rebound, guarding or tenderness. No organomegaly. Extremities: No clubbing, cyanosis or edema. +2 pedal pulses bilaterally. Skin: Warm and dry. Results & Data ([facility]) Vital Signs (Past 12 Hours) Vital Signs Temp Pulse Pulse Resp BP Pulse Ox O2 Del Method 02/24/22 07:45 Nasal Cannula 02/24/22 07:36 36.7 C 85 22 187/92 H 91 Nasal Cannula 02/24/22 07:28 81 14 94 Nasal Cannula 02/24/22 07:00 83 02/24/22 03:16 36.6 C 75 18 150/76 H 94 Nasal Cannula 02/24/22 00:31 79 O2 Flow Rate 02/24/22 07:45 2 02/24/22 07:36 2 02/24/22 07:28 3 02/24/22 07:00 02/24/22 03:16 4 02/24/22 00:31 (1) Acute renal failure superimposed on stage 3a chronic kidney disease Acute renal failure type: unspecified Qualified Code(s): N17.9 - Acute kidney failure, unspecified; N18.31 - Chronic kidney disease, stage 3a (2) Dyspnea Dyspnea type: shortness of breath Qualified Code(s): R06.02 - Shortness of breath (3) Pulmonary edema Chronicity: acute Qualified Code(s): J81.0 - Acute pulmonary edema
[2022-02-24] MEDS: amLODIPine BESYLATE 5 MG TAB PO SCH (11:30)
[2022-02-24] MEDS: WARFARIN SOD 4 MG TAB PO SCH (15:43)
[2022-02-24 17:09] LABS: BUN Creatinine Ratio 22.6 (10-20); Calcium 9.3 mg/dl (8.5-10.1); Creatinine Clr Calc Pharmacy 41.2 ml/min; Est GFR (African American) 50.2 ml/min; Est GFR (Non-African American) 43.4 ml/min
--- NOTE | 2022-02-24 18:16 | Nephrology Progress Note ---
Date of Service February 24, 2022 Assessment & Plan (1) Metabolic alkalosis with respiratory acidosis: Plan: pt on relatively small diuretic dose prior to admission (lasix 20 mg bid) and since arrival but with already elevated baseline bicarbonate and with exaggerated response to relatively minimal doses of IV lasix at that time. Notably K is wnl, despite no supplementation at all after daily lasix doses above. no losses of upper GI secretions so this almost has to be diuretic driven w/ some underlying propensity to metabolic alkalosis. severe metabolic alkalosis cause unclear is limiting her needed diuresis. atypically w/ high normal potassium. ABG ordered w/ marked hypoxemia; also some underlying respiratory acidosis present >w/ u Cl 47, need to consider mineralcorticoid excess (though would expect lower K) > consider 24 hr urine for urinary free cortisone and urinary cortisol (need to talk to lab for how to order former); then therapy w/ MC antagonist like amiloride or spironolactone; ACTH serum will also help eval for cuca's >so far no symptoms of metabolic alkalosis (agitation, seizures, disorientation, coma) ; no hx of liver disease limiting acetazolamide >> after 1 gm acetazolamide, C02 down to 40 >> cont to dose 250 mg bid IV >will start lasix 60 mg IV bid17, first dose now >f/u pending ivelisse/renin levels for AM to eval for things like Cushings dz >ordered CXR yesterday to f/u on congestive failure > persistent (2) Hypoxemia: Plan: per primary service/respiratory > will alert them to BG results; low threshold for pulm consult Admission and Anticipated Discharge Date Admission Date: February 19, 2022 Subjective tired all day she says; no real change in dyspnea; able to get up to toilet still; no n/v Review of Systems Review of Systems: All systems reviewed & are unremarkable except as noted in Subjective Physical Exam Constitutional: well developed (up in chair on 2L NC), well nourished, + obese and cooperative; no acute distress Eyes: EOM intact bilaterally ENMT: Ears: no external ear abnormality Nose: no external nose abnormality Mouth: + dry oral mucous membranes Neck: no nuchal rigidity Respiratory: + labored breathing (karen w/ exam maneuvers) and + tachypneic; + not able to speak in complete sentence Auscultation: + diminished lung sounds Cardiovascular: Rate/Rhythm: regular rate and regular rhythm Heart Sounds: + murmur Extremities: + edema (trace) Gastrointestinal (Abdomen): Inspection/Auscultation: normal bowel sounds Percussion/Palpation: abdomen soft; abdomen nontender Musculoskeletal: Extremities: strength 5/5 throughout Skin: no rashes, warm and dry Neurologic: no tremor but some myoclonic jerks todya Psychiatric: Orientation: oriented x 3 Speech: normal rate/rhythm/volume of speech Affect: euthymic affect Results & Data ([facility]) Vital Signs (Past 12 Hours) Vital Signs Temp Pulse Pulse Resp BP Pulse Ox Pulse Ox 02/24/22 14:52 92 02/24/22 14:15 73 02/24/22 14:39 36.9 C 69 20 168/78 H 92 02/24/22 12:18 36.7 C 74 20 120/60 91 02/24/22 10:29 36.7 C 79 20 133/76 92 02/24/22 07:45 02/24/22 07:36 36.7 C 85 22 187/92 H 91 02/24/22 07:28 81 14 94 02/24/22 07:00 83 O2 Del Method O2 Del Method O2 Flow Rate O2 Flow Rate 02/24/22 14:52 Nasal Cannula 2 02/24/22 14:15 02/24/22 14:39 Nasal Cannula 2 02/24/22 12:18 Nasal Cannula 2 02/24/22 10:29 Nasal Cannula 2 02/24/22 07:45 Nasal Cannula 2 02/24/22 07:36 Nasal Cannula 2 02/24/22 07:28 Nasal Cannula 3 02/24/22 07:00 Laboratory Results 02/20/22 06:07 02/24/22 16:31 uCl 47
[2022-02-24] MEDS: FUROSEMIDE 40 MG/4 ML VIAL IV SCH (18:38)
[2022-02-24] MEDS: PRAVASTATIN SOD 40 MG TAB PO SCH (20:24)
[2022-02-24] MEDS: acetaZOLAMIDE 250 MG in DEXTROSE 5% 100 ML IV SCH (20:48)
--- NOTE | 2022-02-24 21:53 | Hospitalist Progress Note ---
Date of Service February 24, 2022 Assessment & Plan (1) Hypoxemia: (2) Dyspnea: (3) Elevated troponin I level: (4) CHF (congestive heart failure): Plan: Acute decompensated diastolic heart failure likely due to her aortic stenosis. Patient presents with shortness of breath, hypoxia Since she had COVID in June, patient has been using supplemental oxygen In ED she is on 4 L, which seems to be somewhat increased Chest x-ray significant for pulmonary vascular congestion BNP elevated at 1754 Troponin elevated at 399, then 315 Patient denies any chest pain Patient likely presents with an acute CHF Received IV Lasix, IV Decadron, IV antibiotics and aspirin in the ED procalcitonin negative, for now we will hold antibiotic Blood culture no growth IV Lasix has been placed on hold Obtained echocardiogram Normal LV chamber size with severe concentric LVH. Normal LV systolic function, EF 60 to 65%. No segmental LV wall motion abnormalities are noted. Grade 3 diastolic dysfunction consistent with restrictive physiology. RV systolic function is reduced as assessed by tricuspid annular plane systolic excursion TAPSE less than 1.6 cm. Severe calcific aortic valve stenosis. VMI 5.8 m/s and PGM of 84 mmHg. Moderate aortic regurg. Calcified mitral apparatus causing mitral stenosis. There is moderate mitral regurg. There is mild mitral stenosis. Severe LA enlargement. Nephrology on board to guide on diuretic management Received 1 gm acetazolamide, C02 down to 40 >> cont to dose 250 mg bid IV Case discussed with nephrology that plan to restart lasix 60 mg IV bid17 Cardiology consulted Review of echocardiogram now shows that she has critical aortic stenosis with a maximum velocity of 5.8 m/s and a mean pressure gradient of 84 mmHg, both of which are remarkably abnormal She does present in acute decompensated diastolic heart failure likely due to her aortic stenosis. Will need to discuss patient treatment preference ongoing with TAVR evaluation versus hospice care ultimately Continue to monitor on telemetry Elevated troponin Type 2 MO due to acute decompensated diastolic heart failure likely due to her aortic stenosis Troponin elevated at 399, then 315 Cardiology on board Continue statin, metoprolol and coumadin Currently denies any chest pain Metabolic Alkalosis C02 today is > 45; 42-45 from 02/20-02/22; was 36 on presentation Possible related to diuretic Nephrology on board Continue acetazolomide Hypertension Patient found to be quite hypertensive in the ED Received IV Lasix, continue to closely monitor blood pressure Continue Lisinopril 40mg If needed, may need to add amlodipine History of A. fib on warfarin INR 1.7 today , continue to monitor INR Continue Toprol Rate control CKD stage III Continue to monitor creatinine/renal function DVT ppx: On warfarin CODE STATUS DNR/DNI Admission and Anticipated Discharge Date Admission Date: February 19, 2022 Subjective Pt was seen and examined for follow of SOB Lying in bed with no acute distress watching TV Pt said that he feels ok but when i observed her, it seems like she sometimes alittle struggle to breath Denies any chest pain, palpitation, dizziness and SOB Review of Systems Review of Systems: All systems reviewed & are unremarkable except as noted in Subjective Physical Exam Physical Exam: General- No acute distress Head- atraumatic Eyes- PERRL, EOMI, ENT- oropharynx clear Neck- supple, no JVD Lungs- clear to auscultation Heart- regular rhythm; +systolic murmur Abdomen- normal bowel sounds, soft, nontender Extremities- no calf tenderness Neuro- alert, oriented x 3; PERRL, EOMI; no facial palsy; no dysarthria Skin- warm & dry Results & Data Results & Data ([facility]) Vital Signs (Past 12 Hours) Vital Signs Temp Pulse Pulse Resp BP Pulse Ox Pulse Ox 02/24/22 19:57 36.7 C 84 20 174/61 H 92 02/24/22 19:50 75 18 91 02/24/22 14:52 92 02/24/22 14:15 73 02/24/22 14:39 36.9 C 69 20 168/78 H 92 02/24/22 12:18 36.7 C 74 20 120/60 91 02/24/22 10:29 36.7 C 79 20 133/76 92 O2 Del Method O2 Del Method O2 Flow Rate O2 Flow Rate 02/24/22 19:57 Nasal Cannula 2 02/24/22 19:50 Nasal Cannula 2 02/24/22 14:52 Nasal Cannula 2 02/24/22 14:15 02/24/22 14:39 Nasal Cannula 2 02/24/22 12:18 Nasal Cannula 2 02/24/22 10:29 Nasal Cannula 2 (1) Dyspnea Dyspnea type: shortness of breath Qualified Code(s): R06.02 - Shortness of breath
[2022-02-25] MEDS: LEVOTHYROXINE SODIUM 50 MCG TABLET PO SCH (06:07)
[2022-02-25] MEDS: Albuterol HFA 8 GM Inhaler (Combivent Respimat P&T Subs) INH SCH ×2 (07:04→19:29)
[2022-02-25] MEDS: Ipratropium HFA Inhaler (Combivent Respimat P&T Subs) INH SCH ×2 (07:04→19:28)
[2022-02-25 07:05] LABS: Calcium 9.2 mg/dl (8.5-10.1); Creatinine Clr Calc Pharmacy 41.9 ml/min; Est GFR (African American) 51.3 ml/min; Est GFR (Non-African American) 44.3 ml/min; Potassium 3.7 mmol/L (3.5-5.1)
[2022-02-25 07:24] LABS: INR 1.7 (0.9-1.1); Prothrombin Time 17.2 Seconds (9.0-12.0)
[2022-02-25] MEDS: amLODIPine BESYLATE 5 MG TAB PO SCH (07:43)
[2022-02-25] MEDS: lisinopril 40 MG TAB PO SCH (07:43)
[2022-02-25] MEDS: VENLAFAXINE HCL XR 150 MG CAPXR PO SCH (07:43)
[2022-02-25] MEDS: VENLAFAXINE HCL XR 75 MG CAPXR PO SCH (07:43)
[2022-02-25] MEDS: guaiFENesin 600 MG TABCR PO SCH ×2 (07:43→20:45)
[2022-02-25] MEDS: QUEtiapine FUMARATE 25 MG TABLET PO SCH ×2 (07:43→20:46)
[2022-02-25] MEDS: METOPROLOL TARTRATE 25 MG TAB PO SCH ×2 (07:43→20:44)
[2022-02-25] MEDS: FOLIC ACID 1 MG TAB PO SCH (07:43)
[2022-02-25] MEDS: FUROSEMIDE 40 MG/4 ML VIAL IV SCH ×2 (09:00→16:51)
[2022-02-25] MEDS: acetaZOLAMIDE 250 MG in DEXTROSE 5% 100 ML IV SCH ×2 (09:00→20:47)
--- NOTE | 2022-02-25 11:58 | Nephrology Progress Note ---
Date of Service February 25, 2022 Assessment & Plan (1) Metabolic alkalosis with respiratory acidosis: Plan: pt on relatively small diuretic dose prior to admission (lasix 20 mg bid) and since arrival but with already elevated baseline bicarbonate and with exaggerated response to relatively minimal doses of IV lasix at that time. Notably K is wnl, despite no supplementation at all after daily lasix doses above. no losses of upper GI secretions so this almost has to be diuretic driven w/ some underlying propensity to metabolic alkalosis. severe metabolic alkalosis cause unclear is limiting her needed diuresis. atypically w/ high normal potassium. >w/ u Cl 47, need to consider mineralcorticoid excess (though would expect lower K) > consider 24 hr urine for urinary free cortisone and urinary cortisol (need to talk to lab for how to order former); then therapy w/ MC antagonist like amiloride or spironolactone; ACTH serum will also help eval for cuca's >will continue lasix 60 mg IV bid17, first dose now >f/u pending ivelisse/renin levels for AM to eval for things like Cushings dz (2) Hypoxemia: Plan: per primary service/respiratory > will alert them to BG results; low threshold for pulm consult Admission and Anticipated Discharge Date Admission Date: February 19, 2022 Subjective Seen for CHF and metabolic alkalosis. She feels slightly better. She still on oxygen nasal cannula. Review of Systems Review of Systems: All other systems were reviewed and negative except as noted in HPI Physical Exam Physical Exam: General exam: Appears comfortable, no acute distress. On o xygen nasal cannula HEENT: Pupils are equal and reactive to light Neck: No JVD, neck is supple trachea is midline Respiratory system: Clear breath sounds bilaterally. Gastrointestinal: Abdomen is soft, non distended, non tender, bowel sounds are present CVS: Regular rate and rhythm. No murmurs, rubs or gallops Musculoskeletal: No joint or muscle tenderness Extremities: Non tender, no edema, peripheral pulses are present Neuro: Oriented, no tremors, no focal neurological deficits Skin: No rashes Results & Data ([facility]) Vital Signs (Past 12 Hours) Vital Signs Temp Pulse Pulse Resp BP Pulse Ox O2 Del Method 02/25/22 11:11 36.6 C 72 20 115/44 L 92 Nasal Cannula 02/25/22 08:20 79 02/25/22 07:48 Nasal Cannula 02/25/22 07:04 76 18 94 Nasal Cannula 02/25/22 06:54 36.5 C 82 24 158/77 H 92 Nasal Cannula 02/25/22 03:58 36.5 C 69 20 120/61 93 Nasal Cannula 02/25/22 00:55 69 O2 Flow Rate 02/25/22 11:11 4 02/25/22 08:20 02/25/22 07:48 4 02/25/22 07:04 4 02/25/22 06:54 4 02/25/22 03:58 2 02/25/22 00:55 Laboratory Results 02/25/22 05:52
--- NOTE | 2022-02-25 16:01 | Cardiology Progress Note ---
Date of Service February 25, 2022 Assessment & Plan (1) Acute diastolic CHF (congestive heart failure), NYHA class 4: (2) Critical aortic valve stenosis: (3) Hypoxemia: (4) Dyspnea: (5) Pulmonary edema: (6) Chronic a-fib: (7) Acute renal failure superimposed on stage 3a chronic kidney disease: Plan Review of echocardiogram now shows that she has critical aortic stenosis with a maximum velocity of 5.8 m/s and a mean pressure gradient of 84 mmHg, both of which are remarkably abnormal She does present in acute decompensated diastolic heart failure likely due to her aortic stenosis. I suspect I/O's are inaccurate Will need to discuss patient treatment preference ongoing with TAVR evaluation versus hospice care ultimately Blood pressure i improved Continue current antihypertensives Diuresis has been restarted by nephrology and will defer further management to their expertise Admission and Anticipated Discharge Date Admission Date: February 19, 2022 Subjective Patient seen and examined, chart reviewed. Patient denies complaints but nursing reports conversational dyspnea. Review of Systems Review of Systems: All systems reviewed & are unremarkable except as noted in HPI & below Physical Exam Physical Exam: General: Awake, alert and oriented x 3. No acute distress. HEENT: Normocephalic, atraumatic. Pupils equal, round and reactive to light and accommodation. Extraocular muscles are intact. Anicteric sclera. Moist mucous membranes. Neck: No JVD. No bruit. Cardiovascular: Regular. Positive S-4. Normal S-1 and S-2. No S-3. 3/6 mid to late systolic ejection murmur, greatest at the right sternal border, second intercostal space with radiation to the bilateral carotids. No rubs. Pulmonary: Clear to auscultation bilaterally. No rales, rhonchi, or wheezing. Abdomen: Bowel sounds x 4, soft. No rebound, guarding or tenderness. No organomegaly. Extremities: No clubbing, cyanosis or edema. +2 pedal pulses bilaterally. Skin: Warm and dry. Results & Data ([facility]) Vital Signs (Past 12 Hours) Vital Signs Temp Pulse Pulse Resp BP Pulse Ox Pulse Ox 02/25/22 15:33 36.7 C 67 20 132/52 L 93 02/25/22 15:00 96 02/25/22 11:11 36.6 C 72 20 115/44 L 92 02/25/22 08:20 79 07/29/22 07:48 02/25/22 07:04 76 18 94 02/25/22 06:54 36.5 C 82 24 158/77 H 92 O2 Del Method O2 Del Method O2 Flow Rate O2 Flow Rate 02/25/22 15:33 Nasal Cannula 4 02/25/22 15:00 Nasal Cannula 4 02/25/22 11:11 Nasal Cannula 4 02/25/22 08:20 02/25/22 07:48 Nasal Cannula 4 02/25/22 07:04 Nasal Cannula 4 02/25/22 06:54 Nasal Cannula 4 (1) Dyspnea Dyspnea type: shortness of breath Qualified Code(s): R06.02 - Shortness of breath (2) Pulmonary edema Chronicity: acute Qualified Code(s): J81.0 - Acute pulmonary edema (3) Acute renal failure superimposed on stage 3a chronic kidney disease Acute renal failure type: unspecified Qualified Code(s): N17.9 - Acute kidney failure, unspecified; N18.31 - Chronic kidney disease, stage 3a
[2022-02-25] MEDS: WARFARIN SOD 4 MG TAB PO SCH (16:58)
--- NOTE | 2022-02-25 18:33 | Hospitalist Progress Note ---
Date of Service February 25, 2022 Assessment & Plan (1) Hypoxemia: (2) Dyspnea: (3) Elevated troponin I level: (4) CHF (congestive heart failure): Plan: Acute decompensated diastolic heart failure likely due to her aortic stenosis. Patient presents with shortness of breath, hypoxia Since she had COVID in June, patient has been using supplemental oxygen In ED she is on 4 L, which seems to be somewhat increased Chest x-ray significant for pulmonary vascular congestion BNP elevated at 1754 Troponin elevated at 399, then 315 Patient denies any chest pain Patient likely presents with an acute CHF Received IV Lasix, IV Decadron, IV antibiotics and aspirin in the ED procalcitonin negative, for now we will hold antibiotic Blood culture no growth IV Lasix has been placed on hold Obtained echocardiogram Normal LV chamber size with severe concentric LVH. Normal LV systolic function, EF 60 to 65%. No segmental LV wall motion abnormalities are noted. Grade 3 diastolic dysfunction consistent with restrictive physiology. RV systolic function is reduced as assessed by tricuspid annular plane systolic excursion TAPSE less than 1.6 cm. Severe calcific aortic valve stenosis. VMI 5.8 m/s and PGM of 84 mmHg. Moderate aortic regurg. Calcified mitral apparatus causing mitral stenosis. There is moderate mitral regurg. There is mild mitral stenosis. Severe LA enlargement. Nephrology on board to guide on diuretic management Received 1 gm acetazolamide, C02 down to 40 >> cont to dose 250 mg bid IV Continue lasix 60 mg IV bid17 Cardiology consulted Review of echocardiogram now shows that she has critical aortic stenosis with a maximum velocity of 5.8 m/s and a mean pressure gradient of 84 mmHg, both of which are remarkably abnormal She does present in acute decompensated diastolic heart failure likely due to her aortic stenosis. Will need to discuss patient treatment preference ongoing with TAVR evaluation versus hospice care ultimately Discussed with grand daughter today about TAVR evaluation and hospice - she said that she would let her to make the decision Continue to monitor on telemetry Elevated troponin Type 2 CA due to acute decompensated diastolic heart failure likely due to her aortic stenosis Troponin elevated at 399, then 315 Cardiology on board Continue statin, metoprolol and coumadin Currently denies any chest pain Metabolic Alkalosis C02 today is > 45; 42-45 from 02/20-02/22; was 36 on presentation Possible related to diuretic Nephrology on board Continue acetazolamide Hypertension Patient found to be quite hypertensive in the ED Received IV Lasix, continue to closely monitor blood pressure Continue Lisinopril 40mg If needed, may need to add amlodipine History of A. fib on warfarin INR 1.7 today continue to monitor INR Continue Toprol Rate control CKD stage III Continue to monitor creatinine/renal function DVT ppx: On warfarin CODE STATUS DNR/DNI Admission and Anticipated Discharge Date Admission Date: February 19, 2022 Subjective Pt was seen and examined for follow of SOB Sitting at the edge with no acute distress eating her lunch She said that she feels weak today I spoke to her grand daughter Lydia over the phone and provided her with update Denies any chest pain, palpitation, dizziness and SOB Review of Systems Review of Systems: All systems reviewed & are unremarkable except as noted in Subjective Physical Exam Physical Exam: General- No acute distress Head- atraumatic Eyes- PERRL, EOMI, ENT- oropharynx clear Neck- supple, no JVD Lungs- clear to auscultation Heart- regular rhythm; +systolic murmur Abdomen- normal bowel sounds, soft, nontender Extremities- no calf tenderness Neuro- alert, oriented x 3; PERRL, EOMI; no facial palsy; no dysarthria Skin- warm & dry Results & Data Results & Data ([facility]) Vital Signs (Past 12 Hours) Vital Signs Temp Pulse Pulse Resp BP Pulse Ox Pulse Ox 02/25/22 16:24 65 02/25/22 15:33 36.7 C 67 20 132/52 L 93 02/25/22 15:00 96 02/25/22 11:11 36.6 C 72 20 115/44 L 92 02/25/22 08:20 79 02/25/22 07:48 02/25/22 07:04 76 18 94 02/25/22 06:54 36.5 C 82 24 158/77 H 92 O2 Del Method O2 Del Method O2 Flow Rate O2 Flow Rate 02/25/22 16:24 02/25/22 15:33 Nasal Cannula 4 02/25/22 15:00 Nasal Cannula 4 02/25/22 11:11 Nasal Cannula 4 02/25/22 08:20 02/25/22 07:48 Nasal Cannula 4 02/25/22 07:04 Nasal Cannula 4 02/25/22 06:54 Nasal Cannula 4 (1) Dyspnea Dyspnea type: shortness of breath Qualified Code(s): R06.02 - Shortness of breath
[2022-02-25] MEDS: PRAVASTATIN SOD 40 MG TAB PO SCH (20:44)
[2022-02-26] MEDS: LEVOTHYROXINE SODIUM 50 MCG TABLET PO SCH (06:01)
[2022-02-26] MEDS: Albuterol HFA 8 GM Inhaler (Combivent Respimat P&T Subs) INH SCH ×2 (07:02→19:38)
[2022-02-26] MEDS: Ipratropium HFA Inhaler (Combivent Respimat P&T Subs) INH SCH ×2 (07:03→19:38)
[2022-02-26 07:24] LABS: INR 1.6 (0.9-1.1); Prothrombin Time 16.6 Seconds (9.0-12.0)
[2022-02-26 07:42] LABS: BUN Creatinine Ratio 20.5 (10-20); Creatinine Clr Calc Pharmacy 38.6 ml/min; Est GFR (African American) 46.8 ml/min; Est GFR (Non-African American) 40.4 ml/min; Potassium 3.5 mmol/L (3.5-5.1)
[2022-02-26] MEDS: guaiFENesin 600 MG TABCR PO SCH ×2 (07:58→20:29)
[2022-02-26] MEDS: amLODIPine BESYLATE 5 MG TAB PO SCH (07:58)
[2022-02-26] MEDS: FUROSEMIDE 40 MG/4 ML VIAL IV SCH ×2 (07:58→17:21)
[2022-02-26] MEDS: METOPROLOL TARTRATE 25 MG TAB PO SCH ×2 (07:58→20:29)
[2022-02-26] MEDS: VENLAFAXINE HCL XR 75 MG CAPXR PO SCH (07:59)
[2022-02-26] MEDS: FOLIC ACID 1 MG TAB PO SCH (07:59)
[2022-02-26] MEDS: lisinopril 40 MG TAB PO SCH (07:59)
[2022-02-26] MEDS: VENLAFAXINE HCL XR 150 MG CAPXR PO SCH (07:59)
[2022-02-26] MEDS: QUEtiapine FUMARATE 25 MG TABLET PO SCH ×2 (07:59→20:28)
--- NOTE | 2022-02-26 09:14 | Cardiology Progress Note ---
Date of Service February 26, 2022 Assessment & Plan (1) Acute diastolic CHF (congestive heart failure), NYHA class 4: (2) Critical aortic valve stenosis: (3) Hypoxemia: (4) Dyspnea: (5) Pulmonary edema: (6) Chronic a-fib: (7) Acute renal failure superimposed on stage 3a chronic kidney disease: Plan Nephrology's help appreciated. Waiting results of the 24-hour urine and work-up by nephrology. I am not sure the patient is aware or can make decisions regarding future care of her aortic valve. If she has dementia, then quality of life will not change dramatically with a SUZANNE. At some point we may consider palliative care consult. Admission and Anticipated Discharge Date Admission Date: February 19, 2022 Subjective The patient is walking about in her room. She is doing well with no new cardiac complaints. Review of Systems Review of Systems: Review of Systems: See HPI for pertinent positives. All other 10 point review of systems are negative. Physical Exam Physical Exam: General: no acute distress and stated age Head: normocephalic, no masses, lesions, tenderness or abnormalities Eyes: conjunctiva are pink and non-injected, sclera clear Neck: supple, no adenopathy, no bruits, normal jugular venous pulse, no hepatojugular reflux Chest: normal shape and normal respiratory effort Lungs: clear to auscultation and percussion Cardiac Exam: - irregular rate & rhythm, systolic murmur left sternal border radiating to the carotids- normal S1, normal S2 Pulses: 2(+) throughout Abdomen: abdomen soft, non-tender, no abnormal masses and no hepatosplenomegaly Musculoskeletal: no gait disturbance, no joint inflammation, no deforming arthritis Extremities: no edema and no cyanosis Neuro: grossly normal exam Results & Data ([facility]) Vital Signs (Past 12 Hours) Vital Signs Temp Pulse Pulse Pulse Resp BP Pulse Ox 02/26/22 07:52 74 02/26/22 08:05 02/26/22 07:41 36.7 C 75 16 141/53 H 92 02/26/22 07:03 78 18 96 02/26/22 04:07 36.7 C 67 16 136/65 96 02/25/22 23:00 36.6 C 64 18 93/62 L 94 O2 Del Method O2 Flow Rate 02/26/22 07:52 02/26/22 08:05 Nasal Cannula 4 02/26/22 07:41 Nasal Cannula 4 02/26/22 07:03 Nasal Cannula 02/26/22 04:07 Nasal Cannula 4 02/25/22 23:00 Nasal Cannula 4 Laboratory Results Laboratory Results - last 24 hr 02/26/22 02/26/22 06:41 06:41 PT 16.6 H INR 1.6 H Sodium 140 Potassium 3.5 Chloride 97 L Carbon Dioxide 39 H Anion Gap 4 BUN 25 H Creatinine 1.22 H Est Cr Clr Drug Dosing 38.6 Est GFR ( Amer) 46.8 Est GFR (Non-Af Amer) 40.4 BUN/Creatinine Ratio 20.5 H Glucose 85 Calcium 9.0 Medications Administered Current Inpatient Medications Acetaminophen (Acetaminophen 325 Mg Tab) 650 mg PO Q4H PRN PRN Reason: Pain or Fever Stop: 03/21/22 15:43 Albuterol (Albut/Ipratrop 3mg/0.5mg Neb 3 Ml Vial) 3 ml INH Q6H PRN; Protocol PRN Reason: Shortness Of Breath Or Wheezin Stop: 03/22/22 06:54 Albuterol (Albuterol Hfa 8 Gm Inhaler (Combivent Respimat P&T Subs)) 1 puffs INH BIDR LUCIE Stop: 03/22/22 18:59 Last Admin: 02/26/22 07:02 Dose: 1 puffs Amlodipine Besylate (Amlodipine Besylate 5 Mg Tab) 10 mg PO QAM LUCIE Stop: 03/26/22 10:29 Last Admin: 02/26/22 07:58 Dose: 10 mg Folic Acid (Folic Acid 1 Mg Tab) 1 mg PO QAM LUCIE Stop: 03/22/22 08:59 Last Admin: 02/26/22 07:59 Dose: 1 mg Furosemide (Furosemide 40 Mg/4 Ml Vial) 60 mg IV BID17 [facility] Stop: 03/26/22 18:44 Last Admin: 02/26/22 07:58 Dose: 60 mg Guaifenesin (Guaifenesin 600 Mg Tabcr) 600 mg PO BID LUCIE Stop: 03/22/22 08:59 Last Admin: 02/26/22 07:58 Dose: 600 mg Heparin Sodium (Porcine) (Heparin Sod 5,000 Unit/0.5 Ml Vial) 5,000 units SQ Q12 [facility] Stop: 03/28/22 08:59 Acetazolamide 250 mg/ Dextrose 102.5 mls @ 100 mls/hr IV BID LUCIE Stop: 03/26/22 20:59 Last Infusion: 02/25/22 21:57 Dose: Infused Ipratropium [place] (Ipratropium Hfa Inhaler (Combivent Respimat P&T Subs)) 1 puffs INH BIDR LUCIE Stop: 03/22/22 18:59 Last Admin: 02/26/22 07:03 Dose: Not Given Labetalol HCl (Labetalol Hcl Iv 5 Mg/Ml 20ml) 10 mg IV Q4H PRN PRN Reason: Hypertension Stop: 03/21/22 19:41 Last Admin: 02/20/22 03:51 Dose: 10 mg Levothyroxine Sodium (Levothyroxine Sodium 50 Mcg Tablet) 50 mcg PO DAILYBB [facility] Stop: 03/22/22 07:14 Last Admin: 02/26/22 06:01 Dose: 50 mcg Lisinopril (Lisinopril 40 Mg Tab) 40 mg PO QAM [facility] Stop: 03/25/22 08:59 Last Admin: 02/26/22 07:59 Dose: 40 mg Metoprolol Tartrate (Metoprolol Tartrate 25 Mg Tab) 12.5 mg PO BID [facility] Stop: 03/22/22 08:59 Last Admin: 02/26/22 07:58 Dose: 12.5 mg Pravastatin Sodium (Pravastatin Sod 40 Mg Tab) 40 mg PO HS [facility] Stop: 03/22/22 20:59 Last Admin: 02/25/22 20:44 Dose: 40 mg Quetiapine Fumarate (Quetiapine Fumarate 25 Mg Tablet) 50 mg PO BID [facility] Stop: 03/22/22 08:59 Last Admin: 02/26/22 07:59 Dose: 50 mg Venlafaxine HCl (Venlafaxine Hcl Xr 75 Mg Capxr) 75 mg PO QAM [facility] Stop: 03/22/22 08:59 Last Admin: 02/26/22 07:59 Dose: 75 mg Venlafaxine HCl (Venlafaxine Hcl Xr 150 Mg Capxr) 150 mg PO QAM [facility] Stop: 03/22/22 08:59 Last Admin: 02/26/22 07:59 Dose: 150 mg Warfarin Sodium (Warfarin Sod 5 Mg Tab) 5 mg PO DAILY@1600 [facility] Stop: 03/28/22 15:59 (1) Acute renal failure superimposed on stage 3a chronic kidney disease Acute renal failure type: unspecified Qualified Code(s): N17.9 - Acute kidney failure, unspecified; N18.31 - Chronic kidney disease, stage 3a (2) Dyspnea Dyspnea type: shortness of breath Qualified Code(s): R06.02 - Shortness of breath (3) Pulmonary edema Chronicity: acute Qualified Code(s): J81.0 - Acute pulmonary edema
[2022-02-26] MEDS: HEPARIN SOD 5,000 UNIT/0.5 ML VIAL SQ SCH ×2 (09:25→20:30)
[2022-02-26] MEDS: acetaZOLAMIDE 250 MG in DEXTROSE 5% 100 ML IV SCH ×2 (09:25→20:30)
[2022-02-26] MEDS: WARFARIN SOD 5 MG TAB PO SCH (16:33)
--- NOTE | 2022-02-26 17:41 | Nephrology Progress Note ---
Date of Service February 26, 2022 Assessment & Plan (1) Metabolic alkalosis with respiratory acidosis: Plan: pt on relatively small diuretic dose prior to admission (lasix 20 mg bid) and since arrival but with already elevated baseline bicarbonate and with exaggerated response to relatively minimal doses of IV lasix at that time. Notably K is wnl, despite no supplementation at all after daily lasix doses above. no losses of upper GI secretions so this almost has to be diuretic driven w/ some underlying propensity to metabolic alkalosis. severe metabolic alkalosis cause unclear is limiting her needed diuresis. atypically w/ high normal potassium. >w/ u Cl 47, need to consider mineralcorticoid excess (though would expect lower K) > consider 24 hr urine for urinary free cortisone and urinary cortisol (need to talk to lab for how to order former); then therapy w/ MC antagonist like amiloride or spironolactone; ACTH serum will also help eval for cuca's >will continue lasix 60 mg IV bid17 -will replete K today >f/u pending ivelisse/renin levels to eval for things like C[place]ings dz (2) Hypoxemia: Plan: per primary service/respiratory > will alert them to BG results; low threshold for pulm consult Admission and Anticipated Discharge Date Admission Date: February 19, 2022 Subjective no interval events. c/o fatigue; tells me her myoclonic jerks are baseilne/ were happenign months prior to admission Review of Systems Review of Systems: All systems reviewed & are unremarkable except as noted in Subjective Physical Exam Constitutional: well developed (stting in bedon 4L NC), well nourished, + obese and cooperative; no acute distress Eyes: EOM intact bilaterally ENMT: Ears: no external ear abnormality Nose: no external nose abnormality Mouth: + dry oral mucous membranes Neck: no nuchal rigidity Respiratory: + labored breathing (karen w/ exam maneuvers), able to speak in complete sentences and + tachypneic Auscultation: + diminished lung sounds and + crackles Cardiovascular: Rate/Rhythm: regular rate and regular rhythm Heart Sounds: + murmur Extremities: + edema (trace) Gastrointestinal (Abdomen): Inspection/Auscultation: normal bowel sounds Percussion/Palpation: abdomen soft; abdomen nontender Musculoskeletal: Extremities: strength 5/5 throughout Skin: no rashes, warm and dry Psychiatric: Orientation: oriented x 3 Speech: normal rate/rhythm/volume of speech Affect: euthymic affect Results & Data ([facility]) Vital Signs (Past 12 Hours) Vital Signs Temp Pulse Pulse Pulse Resp BP Pulse Ox 02/26/22 15:00 02/26/22 16:25 36.7 C 81 14 104/48 L 98 02/26/22 14:51 58 L 02/26/22 12:10 36.7 C 68 16 141/66 H 95 02/26/22 07:52 74 02/26/22 08:05 02/26/22 07:41 36.7 C 75 16 141/53 H 92 02/26/22 07:03 78 18 96 Pulse Ox O2 Del Method O2 Del Method O2 Flow Rate O2 Flow Rate 02/26/22 15:00 96 Nasal Cannula 4 02/26/22 16:25 Nasal Cannula 4 02/26/22 14:51 02/26/22 12:10 Nasal Cannula 4 02/26/22 07:52 02/26/22 08:05 Nasal Cannula 4 02/26/22 07:41 Nasal Cannula 4 02/26/22 07:03 Nasal Cannula Laboratory Results 02/20/22 06:07 02/26/22 06:41
[2022-02-26] MEDS: POTASSIUM CHLORIDE CRTAB 20 MEQ TABCR PO SCH ×2 (18:15→20:30)
--- NOTE | 2022-02-26 19:16 | Hospitalist Progress Note ---
Date of Service February 26, 2022 Assessment & Plan (1) Hypoxemia: (2) Dyspnea: (3) Elevated troponin I level: (4) CHF (congestive heart failure): Plan: Acute decompensated diastolic heart failure likely due to her aortic stenosis. Patient presents with shortness of breath, hypoxia Since she had COVID in June, patient has been using supplemental oxygen In ED she is on 4 L, which seems to be somewhat increased Chest x-ray significant for pulmonary vascular congestion BNP elevated at 1754 Troponin elevated at 399, then 315 Patient denies any chest pain Patient likely presents with an acute CHF Received IV Lasix, IV Decadron, IV antibiotics and aspirin in the ED procalcitonin negative, for now we will hold antibiotic Blood culture no growth IV Lasix has been placed on hold Obtained echocardiogram Normal LV chamber size with severe concentric LVH. Normal LV systolic function, EF 60 to 65%. No segmental LV wall motion abnormalities are noted. Grade 3 diastolic dysfunction consistent with restrictive physiology. RV systolic function is reduced as assessed by tricuspid annular plane systolic excursion TAPSE less than 1.6 cm. Severe calcific aortic valve stenosis. VMI 5.8 m/s and PGM of 84 mmHg. Moderate aortic regurg. Calcified mitral apparatus causing mitral stenosis. There is moderate mitral regurg. There is mild mitral stenosis. Severe LA enlargement. Nephrology on board to guide on diuretic management Received 1 gm acetazolamide, C02 down to 40 >> cont to dose 250 mg bid IV Continue lasix 60 mg IV bid17, will continue monitor BMP Cardiology consulted Review of echocardiogram now shows that she has critical aortic stenosis with a maximum velocity of 5.8 m/s and a mean pressure gradient of 84 mmHg, both of which are remarkably abnormal She does present in acute decompensated diastolic heart failure likely due to her aortic stenosis. Will need to discuss patient treatment preference ongoing with TAVR evaluation v ersus hospice care ultimately Discussed with grand daughter today about TAVR evaluation and hospice - she said that she would let her to make the decision Continue to monitor on telemetry Elevated troponin Type 2 ND due to acute decompensated diastolic heart failure likely due to her aortic stenosis Troponin elevated at 399, then 315 Cardiology on board Continue statin, metoprolol and coumadin Currently denies any chest pain Metabolic Alkalosis C02 today is > 45; 42-45 from 02/20-02/22; was 36 on presentation Possible related to diuretic Nephrology on board Continue acetazolamide Urine for urinary free cortisone and urinary cortisol, Renin/aldosterone ordered by nephrology Hypertension Patient found to be quite hypertensive in the ED Received IV Lasix, continue to closely monitor blood pressure Continue Lisinopril 40mg BP stable History of A. fib on warfarin INR 1.7 today continue to monitor INR Continue Toprol Rate control CKD stage III Continue to monitor creatinine/renal function DVT ppx: On warfarin Heparin subq added until INR therapeutic CODE STATUS DNR/DNI Admission and Anticipated Discharge Date Admission Date: February 19, 2022 Subjective Pt was seen and examined for follow of SOB Resting in bed with no acute distress eating her lunch She said that her breathing is getting better Denies any chest pain, palpitation, dizziness and SOB Review of Systems Review of Systems: All systems reviewed & are unremarkable except as noted in Subjective Physical Exam Physical Exam: General- No acute distress Head- atraumatic Eyes- PERRL, EOMI, ENT- oropharynx clear Neck- supple, no JVD Lungs- clear to auscultation Heart- regular rhythm; +systolic murmur Abdomen- normal bowel sounds, soft, nontender Extremities- no calf tenderness Neuro- alert, oriented x 3; PERRL, EOMI; no facial palsy; no dysarthria Skin- warm & dry Results & Data Results & Data ([facility]) Vital Signs (Past 12 Hours) Vital Signs Temp Pulse Pulse Resp BP Pulse Ox Pulse Ox 02/26/22 15:00 96 02/26/22 16:25 36.7 C 81 14 104/48 L 98 02/26/22 14:51 58 L 02/26/22 12:10 36.7 C 68 16 141/66 H 95 02/26/22 07:52 74 02/26/22 08:05 02/26/22 07:41 36.7 C 75 16 141/53 H 92 O2 Del Method O2 Del Method O2 Flow Rate O2 Flow Rate 02/26/22 15:00 Nasal Cannula 4 02/26/22 16:25 Nasal Cannula 4 02/26/22 14:51 02/26/22 12:10 Nasal Cannula 4 02/26/22 07:52 02/26/22 08:05 Nasal Cannula 4 02/26/22 07:41 Nasal Cannula 4 (1) Dyspnea Dyspnea type: shortness of breath Qualified Code(s): R06.02 - Shortness of breath
[2022-02-26] MEDS: PRAVASTATIN SOD 40 MG TAB PO SCH (20:28)
[2022-02-27] MEDS: LEVOTHYROXINE SODIUM 50 MCG TABLET PO SCH (06:10)
[2022-02-27] MEDS: Albuterol HFA 8 GM Inhaler (Combivent Respimat P&T Subs) INH SCH ×2 (06:48→19:10)
[2022-02-27] MEDS: Ipratropium HFA Inhaler (Combivent Respimat P&T Subs) INH SCH ×2 (06:48→19:10)
[2022-02-27 07:18] LABS: INR 1.7 (0.9-1.1); Prothrombin Time 17.4 Seconds (9.0-12.0)
[2022-02-27 07:37] LABS: BUN Creatinine Ratio 22.1 (10-20); Creatinine Clr Calc Pharmacy 38.6 ml/min; Est GFR (African American) 46.8 ml/min; Est GFR (Non-African American) 40.4 ml/min; Potassium 4.4 mmol/L (3.5-5.1)
[2022-02-27] MEDS: HEPARIN SOD 5,000 UNIT/0.5 ML VIAL SQ SCH ×2 (08:22→20:41)
[2022-02-27] MEDS: QUEtiapine FUMARATE 25 MG TABLET PO SCH ×2 (08:23→20:44)
[2022-02-27] MEDS: METOPROLOL TARTRATE 25 MG TAB PO SCH ×2 (08:23→20:44)
[2022-02-27] MEDS: guaiFENesin 600 MG TABCR PO SCH ×2 (08:23→20:45)
[2022-02-27] MEDS: FOLIC ACID 1 MG TAB PO SCH (08:25)
[2022-02-27] MEDS: VENLAFAXINE HCL XR 150 MG CAPXR PO SCH (08:25)
[2022-02-27] MEDS: VENLAFAXINE HCL XR 75 MG CAPXR PO SCH (08:25)
[2022-02-27] MEDS: lisinopril 40 MG TAB PO SCH (08:25)
[2022-02-27] MEDS: amLODIPine BESYLATE 5 MG TAB PO SCH (08:26)
[2022-02-27] MEDS: FUROSEMIDE 40 MG/4 ML VIAL IV SCH ×2 (08:26→17:28)
[2022-02-27] MEDS: acetaZOLAMIDE 250 MG in DEXTROSE 5% 100 ML IV SCH ×2 (09:00→20:45)
[2022-02-27] MEDS: NYSTATIN CR 15 GM TUBE EXT SCH ×2 (10:47→20:42)
[2022-02-27] MEDS: NYSTATIN SUSP 500,000 U/5 ML UDC PO SCH ×3 (12:31→20:42)
[2022-02-27] MEDS ORDERED: FUROSEMIDE 40 MG/4 ML VIAL IV ONE (13:00)
[2022-02-27] MEDS: WARFARIN SOD 5 MG TAB PO SCH (16:31)
--- NOTE | 2022-02-27 19:33 | Hospitalist Progress Note ---
Date of Service February 27, 2022 Assessment & Plan (1) Hypoxemia: (2) Dyspnea: (3) Elevated troponin I level: (4) CHF (congestive heart failure): Plan: Acute decompensated diastolic heart failure likely due to her aortic stenosis. Patient presents with shortness of breath, hypoxia Since she had COVID in June, patient has been using supplemental oxygen In ED she is on 4 L, which seems to be somewhat increased Chest x-ray significant for pulmonary vascular congestion BNP elevated at 1754 Troponin elevated at 399, then 315 Patient denies any chest pain Patient likely presents with an acute CHF Received IV Lasix, IV Decadron, IV antibiotics and aspirin in the ED procalcitonin negative, for now we will hold antibiotic Blood culture no growth Obtained echocardiogram Normal LV chamber size with severe concentric LVH. Normal LV systolic function, EF 60 to 65%. No segmental LV wall motion abnormalities are noted. Grade 3 diastolic dysfunction consistent with restrictive physiology. RV systolic func tion is reduced as assessed by tricuspid annular plane systolic excursion TAPSE less than 1.6 cm. Severe calcific aortic valve stenosis. VMI 5.8 m/s and PGM of 84 mmHg. Moderate aortic regurg. Calcified mitral apparatus causing mitral stenosis. There is moderate mitral regurg. There is mild mitral stenosis. Severe LA enlargement. Nephrology on board to guide on diuretic management Received 1 gm acetazolamide, C02 down to 40 >> cont to dose 250 mg bid IV Nephrology is managing the diruretic Continue lasix 60 mg IV Cardiology consulted Review of echocardiogram now shows that she has critical aortic stenosis with a maximum velocity of 5.8 m/s and a mean pressure gradient of 84 mmHg, both of which are remarkably abnormal She does present in acute decompensated diastolic heart failure likely due to her aortic stenosis. Will need to discuss patient treatment preference ongoing with TAVR evaluation versus hospice care ultimately Discussed with grand daughter today about TAVR evaluation and hospice - she said that she would let her to make the decision Continue to monitor on telemetry Elevated troponin Type 2 IN due to acute decompensated diastolic heart failure likely due to her aortic stenosis Troponin elevated at 399, then 315 Cardiology on board Continue statin, metoprolol and coumadin Currently denies any chest pain Metabolic Alkalosis C02 today is > 45; 42-45 from 02/20-02/22; was 36 on presentation Possible related to diuretic Nephrology on board Continue acetazolamide Urine for urinary free cortisone and urinary cortisol, Renin/aldosterone ordered by nephrology Hypertension Patient found to be quite hypertensive in the ED Received IV Lasix, continue to closely monitor blood pressure Continue Lisinopril 40mg BP stable History of A. fib on warfarin INR 1.7 today continue to monitor INR Continue Toprol Rate control CKD stage III Continue to monitor creatinine/renal function DVT ppx: On warfarin Heparin subq added until INR therapeutic CODE STATUS DNR/DNI Admission and Anticipated Discharge Date Admission Date: February 19, 2022 Subjective Pt was seen and examined for follow of SOB Resting at the edge of the bed eating her lunch She said that her breathing is getting better Her oxygen was titrated to 2L NC Denies any chest pain, palpitation, dizziness and SOB Review of Systems Review of Systems: All systems reviewed & are unremarkable except as noted in Subjective Physical Exam Physical Exam: General- No acute distress Head- atraumatic Eyes- PERRL, EOMI, ENT- oropharynx clear Neck- supple, no JVD Lungs- clear to auscultation Heart- regular rhythm; +systolic murmur Abdomen- normal bowel sounds, soft, nontender Extremities- no calf tenderness Neuro- alert, oriented x 3; PERRL, EOMI; no facial palsy; no dysarthria Skin- warm & dry Results & Data Results & Data ([facility]) Vital Signs (Past 12 Hours) Vital Signs Temp Pulse Pulse Pulse Resp BP Pulse Ox 02/27/22 19:11 72 19 94 02/27/22 15:00 02/27/22 15:13 36.6 C 64 20 135/55 L 95 02/27/22 14:57 61 02/27/22 12:40 113/44 L 02/27/22 11:13 36.6 C 60 16 98/72 L 93 02/27/22 08:10 Pulse Ox O2 Del Method O2 Del Method O2 Flow Rate O2 Flow Rate 02/27/22 19:11 Nasal Cannula 2 02/27/22 15:00 94 Nasal Cannula 2 02/27/22 15:13 Nasal Cannula 2 02/27/22 14:57 02/27/22 12:40 02/27/22 11:13 Nasal Cannula 2 02/27/22 08:10 Nasal Cannula 2 (1) Dyspnea Dyspnea type: shortness of breath Qualified Code(s): R06.02 - Shortness of breath
--- NOTE | 2022-02-27 20:36 | Nephrology Progress Note ---
Date of Service February 27, 2022 Assessment & Plan (1) Metabolic alkalosis with respiratory acidosis: Plan: pt on relatively small diuretic dose prior to admission (lasix 20 mg bid) and since arrival but with already elevated baseline bicarbonate and with exaggerated response to relatively minimal doses of IV lasix at that time. Notably K is wnl, despite no supplementation at all after daily lasix doses above. no losses of upper GI secretions so this almost has to be diuretic driven w/ some underlying propensity to metabolic alkalosis. severe metabolic alkalosis cause unclear is limiting her needed diuresis. atypically w/ high normal potassium. >w/ u Cl 47, need to consider mineralcorticoid excess (though would expect lower K) > consider 24 hr urine for urinary free cortisone and urinary cortisol (need to talk to lab for how to order former); then therapy w/ MC antagonist like amiloride or spironolactone; ACTH serum will also help eval for cuca's >will continue lasix 60 mg IV bid17; also gave extra lasix dose today -continue high dose K repletion -change IV acetazolamide to po when transitioning to po diuretics >nephro will f/u pending ivelisse/renin levels to eval for things like Cushings dz -daily bmp will sign off; pls call if ? at hospital discharge optional to follow up with nephrology to work up metabolic alkalosis-wiould need hospital d/c appt; or can simply follow w/ cardiology (2) Hypoxemia: Plan: per primary service/respiratory > will alert them to BG results; low threshold for pulm consult Admission and Anticipated Discharge Date Admission Date: February 19, 2022 Subjective seen on rounds this PM 1400; feels very tired still but dyspnea improving. no pain, ongoing incontinence of urine Review of Systems Review of Systems: All systems reviewed & are unremarkable except as noted in Subjective Physical Exam Constitutional: well developed (stting in bedon 2L NC), well nourished, + obese and cooperative; no acute distress Eyes: EOM intact bilaterally ENMT: Ears: no external ear abnormality Nose: no external nose abnormality Mouth: + dry oral mucous membranes Neck: no nuchal rigidity Respiratory: + labored breathing (karen w/ exam maneuvers), able to speak in complete sentences and + tachypneic Auscultation: + diminished lung sounds and + crackles Cardiovascular: Rate/Rhythm: regular rate and regular rhythm Heart Sounds: + murmur Extremities: + edema (trace) Gastrointestinal (Abdomen): Inspection/Auscultation: normal bowel sounds Percussion/Palpation: abdomen soft; abdomen nontender Musculoskeletal: Extremities: strength 5/5 throughout Skin: no rashes, warm and dry Psychiatric: Orientation: oriented x 3 Speech: normal rate/rhythm/volume of speech Affect: euthymic affect Results & Data ([facility]) Vital Signs (Past 12 Hours) Vital Signs Temp Pulse Pulse Pulse Resp BP Pulse Ox 02/27/22 19:48 36.7 C 68 22 148/61 H 95 02/27/22 19:11 72 19 94 02/27/22 15:00 02/27/22 15:13 36.6 C 64 20 135/55 L 95 02/27/22 14:57 61 02/27/22 12:40 113/44 L 02/27/22 11:13 36.6 C 60 16 98/72 L 93 Pulse Ox O2 Del Method O2 Del Method O2 Flow Rate O2 Flow Rate 02/27/22 19:48 Nasal Cannula 2 02/27/22 19:11 Nasal Cannula 2 02/27/22 15:00 94 Nasal Cannula 2 02/27/22 15:13 Nasal Cannula 2 02/27/22 14:57 02/27/22 12:40 02/27/22 11:13 Nasal Cannula 2 Laboratory Results 02/20/22 06:07 02/27/22 05:41
[2022-02-27] MEDS: PRAVASTATIN SOD 40 MG TAB PO SCH (20:43)
[2022-02-28] MEDS: LEVOTHYROXINE SODIUM 50 MCG TABLET PO SCH (06:11)
[2022-02-28] MEDS: Ipratropium HFA Inhaler (Combivent Respimat P&T Subs) INH SCH ×2 (06:52→19:15)
[2022-02-28] MEDS: Albuterol HFA 8 GM Inhaler (Combivent Respimat P&T Subs) INH SCH ×2 (06:52→19:15)
[2022-02-28 06:57] LABS: Calcium 8.8 mg/dl (8.5-10.1); Creatinine Clr Calc Pharmacy 37.3 ml/min; Est GFR (Non-African American) 38.8 ml/min; Potassium 3.8 mmol/L (3.5-5.1)
[2022-02-28 08:26] LABS: INR 1.6 (0.9-1.1); Prothrombin Time 16.8 Seconds (9.0-12.0)
[2022-02-28] MEDS: NYSTATIN CR 15 GM TUBE EXT SCH ×2 (09:52→20:13)
[2022-02-28] MEDS: NYSTATIN SUSP 500,000 U/5 ML UDC PO SCH ×4 (09:52→20:13)
[2022-02-28] MEDS: VENLAFAXINE HCL XR 75 MG CAPXR PO SCH (09:53)
[2022-02-28] MEDS: FUROSEMIDE 40 MG/4 ML VIAL IV SCH ×2 (09:53→16:41)
[2022-02-28] MEDS: guaiFENesin 600 MG TABCR PO SCH ×2 (09:53→20:11)
[2022-02-28] MEDS: QUEtiapine FUMARATE 25 MG TABLET PO SCH ×2 (09:53→20:14)
[2022-02-28] MEDS: FOLIC ACID 1 MG TAB PO SCH (09:54)
[2022-02-28] MEDS: METOPROLOL TARTRATE 25 MG TAB PO SCH ×2 (09:54→20:12)
[2022-02-28] MEDS: amLODIPine BESYLATE 5 MG TAB PO SCH (09:54)
[2022-02-28] MEDS: lisinopril 40 MG TAB PO SCH (09:54)
[2022-02-28] MEDS: VENLAFAXINE HCL XR 150 MG CAPXR PO SCH (09:54)
[2022-02-28] MEDS: HEPARIN SOD 5,000 UNIT/0.5 ML VIAL SQ SCH ×2 (09:54→20:12)
[2022-02-28] MEDS: acetaZOLAMIDE 250 MG in DEXTROSE 5% 100 ML IV SCH ×2 (09:55→20:10)
--- NOTE | 2022-02-28 12:19 | Hospitalist Progress Note ---
Date of Service February 28, 2022 Assessment & Plan (1) Hypoxemia: (2) Dyspnea: (3) Elevated troponin I level: (4) CHF (congestive heart failure): Plan: Acute decompensated diastolic heart failure likely due to her aortic stenosis. Patient presents with shortness of breath, hypoxia Since she had COVID in June, patient has been using supplemental oxygen In ED she is on 4 L, which seems to be somewhat increased Chest x-ray significant for pulmonary vascular congestion BNP elevated at 1754 Troponin elevated at 399, then 315 Patient denies any chest pain Patient likely presents with an acute CHF Received IV Lasix, IV Decadron, IV antibiotics and aspirin in the ED procalcitonin negative, for now we will hold antibiotic Blood culture no growth Obtained echocardiogram Normal LV chamber size with severe concentric LVH. Normal LV systolic function, EF 60 to 65%. No segmental LV wall motion abnormalities are noted. Grade 3 diastolic dysfunction consistent with restrictive physiology. RV systolic fun ction is reduced as assessed by tricuspid annular plane systolic excursion TAPSE less than 1.6 cm. Severe calcific aortic valve stenosis. VMI 5.8 m/s and PGM of 84 mmHg. Moderate aortic regurg. Calcified mitral apparatus causing mitral stenosis. There is moderate mitral regurg. There is mild mitral stenosis. Severe LA enlargement. Nephrology on board to guide on diuretic management Received 1 gm acetazolamide, C02 down to 40 >> cont to dose 250 mg bid IV Nephrology is managing the diruretic Continue lasix 60 mg IV Continue monitor creatinine Cardiology consulted Review of echocardiogram now shows that she has critical aortic stenosis with a maximum velocity of 5.8 m/s and a mean pressure gradient of 84 mmHg, both of which are remarkably abnormal She does present in acute decompensated diastolic heart failure likely due to her aortic stenosis. Will need to discuss patient treatment preference ongoing with TAVR evaluation v [facility] hospice care ultimately Discussed with grand daughter today about TAVR evaluation and hospice - she said that she would let her to make the decision Pt said that she would like to get eval for the TAVR procedure because she would like to do it Discussed with cardiology that will arrange for outpatient follow for TAVR eval once patient is stable Continue to monitor on telemetry Elevated troponin Type 2 KS due to acute decompensated diastolic heart failure likely due to her aortic stenosis Troponin elevated at 399, then 315 Cardiology on board Continue statin, metoprolol and coumadin Currently denies any chest pain Metabolic Alkalosis C02 today is > 45; 42-45 from 02/20-02/22; was 36 on presentation Possible related to diuretic Nephrology on board Continue acetazolamide Urine for urinary free cortisone and urinary cortisol, Renin/aldosterone ordered by nephrology Hypertension Patient found to be quite hypertensive in the ED Received IV Lasix, continue to closely monitor blood pressure Continue Lisinopril 40mg BP stable History of A. fib on warfarin INR 1.6 today Continue coumadin 5 mg continue to monitor INR Continue Toprol Rate control CKD stage III Continue to monitor creatinine/renal function DVT ppx: On warfarin Heparin subq until INR therapeutic CODE STATUS DNR/DNI Admission and Anticipated Discharge Date Admission Date: February 19, 2022 Subjective Pt was seen and examined for follow of SOB Sitting in chair with no acute distress eating her lunch She said that her breathing is getting better Today she mentioned to me when she is getting to evaluate for the valve procedure Pt said that she wants the procedure. She mentioned that to me and the nurse as well Denies any chest pain, palpitation, dizziness and SOB Review of Systems Review of Systems: All systems reviewed & are unremarkable except as noted in Subjective Physical Exam Physical Exam: General- No acute distress Head- atraumatic Eyes- PERRL, EOMI, ENT- oropharynx clear Neck- supple, no JVD Lungs- clear to auscultation Heart- regular rhythm; +systolic murmur Abdomen- normal bowel sounds, soft, nontender Extremities- no calf tenderness Neuro- alert, oriented x 3; PERRL, EOMI; no facial palsy; no dysarthria Skin- warm & dry Results & Data Results & Data ([facility]) Vital Signs (Past 12 Hours) Vital Signs Temp Pulse Pulse Resp BP Pulse Ox O2 Del Method 02/28/22 09:27 62 02/28/22 09:27 Nasal Cannula 02/28/22 06:52 68 17 94 Nasal Cannula 02/28/22 06:41 36.5 C 74 18 136/68 94 Nasal Cannula 02/28/22 03:14 36.6 C 67 18 120/60 93 Nasal Cannula O2 Flow Rate 02/28/22 09:27 02/28/22 09:27 2 02/28/22 06:52 2 02/28/22 06:41 3 02/28/22 03:14 2 (1) Dyspnea Dyspnea type: shortness of breath Qualified Code(s): R06.02 - Shortness of breath
[2022-02-28] MEDS: WARFARIN SOD 5 MG TAB PO SCH (16:41)
[2022-02-28] MEDS: PRAVASTATIN SOD 40 MG TAB PO SCH (20:13)
[2022-03-01] MEDS: LEVOTHYROXINE SODIUM 50 MCG TABLET PO SCH (06:50)
[2022-03-01] MEDS: Albuterol HFA 8 GM Inhaler (Combivent Respimat P&T Subs) INH SCH ×2 (07:33→19:18)
[2022-03-01] MEDS: Ipratropium HFA Inhaler (Combivent Respimat P&T Subs) INH SCH ×2 (07:33→19:18)
[2022-03-01] MEDS: NYSTATIN SUSP 500,000 U/5 ML UDC PO SCH ×4 (08:08→21:30)
[2022-03-01] MEDS: NYSTATIN CR 15 GM TUBE EXT SCH ×2 (08:08→21:34)
[2022-03-01] MEDS: QUEtiapine FUMARATE 25 MG TABLET PO SCH ×2 (08:09→21:31)
[2022-03-01] MEDS: FOLIC ACID 1 MG TAB PO SCH (08:09)
[2022-03-01] MEDS: amLODIPine BESYLATE 5 MG TAB PO SCH (08:09)
[2022-03-01] MEDS: VENLAFAXINE HCL XR 150 MG CAPXR PO SCH (08:09)
[2022-03-01] MEDS: lisinopril 40 MG TAB PO SCH (08:09)
[2022-03-01] MEDS: guaiFENesin 600 MG TABCR PO SCH ×2 (08:09→21:29)
[2022-03-01] MEDS: VENLAFAXINE HCL XR 75 MG CAPXR PO SCH (08:09)
[2022-03-01] MEDS: METOPROLOL TARTRATE 25 MG TAB PO SCH ×2 (08:09→21:30)
[2022-03-01] MEDS: acetaZOLAMIDE 250 MG in DEXTROSE 5% 100 ML IV SCH ×2 (08:54→21:42)
[2022-03-01] MEDS: FUROSEMIDE 40 MG/4 ML VIAL IV SCH ×2 (08:54→16:34)
[2022-03-01] MEDS: HEPARIN SOD 5,000 UNIT/0.5 ML VIAL SQ SCH (08:55)
[2022-03-01 09:44] LABS: Prothrombin Time 20.2 Seconds (9.0-12.0)
[2022-03-01 09:51] LABS: BUN Creatinine Ratio 22.3 (10-20); Calcium 9.2 mg/dl (8.5-10.1); Creatinine Clr Calc Pharmacy 36.1 ml/min; Est GFR (African American) 43.3 ml/min; Est GFR (Non-African American) 37.4 ml/min; Potassium 3.9 mmol/L (3.5-5.1)
--- NOTE | 2022-03-01 11:53 | Nephrology Progress Note ---
Date of Service March 01, 2022 Assessment & Plan Admission and Anticipated Discharge Date Admission Date: February 19, 2022 Subjective Assessment & Plan (1) Metabolic alkalosis with respiratory acidosis: Plan: pt on relatively small diuretic dose prior to admission (lasix 20 mg bid) and since arrival but with already elevated baseline bicarbonate and with exaggerated response to relatively minimal doses of IV lasix at that time. Notably K is wnl, despite no supplementation at all after daily lasix doses above. no losses of upper GI secretions so this almost has to be diuretic driven w/ some underlying propensity to metabolic alkalosis. severe metabolic alkalosis cause unclear is limiting her needed diuresis. atypically w/ high normal potassium. >w/ u Cl 47, need to consider mineralcorticoid excess (though would expect lower K) > consider 24 hr urine for urinary free cortisone and urinary cortisol (need to talk to lab for how to order former); then therapy w/ MC antagonist like amiloride or spironolactone; ACTH serum will also help eval for cuca's Repeat CXR to reasess Fluid status/Pulm edema. repeat ABG today. Will likely change to oral lasix and oral Diamox after today. Subjective Feels very tired still but dyspnea improving.hard to get history. no pain, ongoing incontinence of urine Review of Systems Review of Systems: All systems reviewed & are unremarkable except as noted in Subjective Physical Exam Constitutional: well developed (stting in bedon 2L NC), well nourished, + obese and cooperative; no acute distress Eyes: EOM intact bilaterally ENMT: Ears: no external ear abnormality Nose: no external nose abnormality Mouth: + dry oral mucous membranes Neck: no nuchal rigidity Respiratory: + labored breathing (karen w/ exam maneuve rs), able to speak in complete sentences and + tachypneic Auscultation: + diminished lung sounds and + crackles Cardiovascular: Rate/Rhythm: regular rate and regular rhythm Heart Sounds: + murmur Extremities: + edema (trace) Gastrointestinal (Abdomen): Inspection/Auscultation: normal bowel sounds Percussion/Palpation: abdomen soft; abdomen nontender Musculoskeletal: Extremities: strength 5/5 throughout Skin: no rashes, warm and dry Psychiatric: Orientation: oriented x 3 Speech: normal rate/rhythm/volume of speech Affect: euthymic affect Results & Data ([facility]) Vital Signs (Past 12 Hours) Vital Signs Temp Pulse Pulse Resp BP Pulse Ox O2 Del Method 03/01/22 07:57 37.2 C 79 22 151/67 H 90 Nasal Cannula 03/01/22 07:33 72 18 94 Nasal Cannula 03/01/22 02:49 36.8 C 70 20 142/60 H 95 Nasal Cannula O2 Flow Rate 03/01/22 07:57 03/01/22 07:33 3 03/01/22 02:49 3
--- NOTE | 2022-03-01 11:58 | Cardiology Progress Note ---
Date of Service March 01, 2022 Assessment & Plan (1) Acute diastolic CHF (congestive heart failure), NYHA class 4: (2) Critical aortic valve stenosis: (3) Hypoxemia: (4) Dyspnea: (5) Pulmonary edema: (6) Chronic a-fib: (7) Acute renal failure superimposed on stage 3a chronic kidney disease: Plan Nephrology's help is appreciated. With this patient's advanced dementia she is not a candidate for SUZANNE and therefore cardiology has nothing more to offer at this time. Please call with any questions. Admission and Anticipated Discharge Date Admission Date: February 19, 2022 Subjective Yet patient is sitting in bed having lunch. She is confused and demented today. Review of Systems Review of Systems: Review of Systems: See HPI for pertinent positives. All other 10 point review of systems are negative. Physical Exam Physical Exam: General: no acute distress and stated age Head: normocephalic, no masses, lesions, tenderness or abnormalities Eyes: conjunctiva are pink and non-injected, sclera clear Neck: supple, no adenopathy, no bruits, normal jugular venous pulse, no hepatojugular reflux Chest: normal shape and normal respiratory effort Lungs: clear to auscultation and percussion Cardiac Exam: - irregular rate & rhythm, systolic murmur left sternal border radiating to the carotids- normal S1, normal S2 Pulses: 2(+) throughout Abdomen: abdomen soft, non-tender, no abnormal masses and no hepatosplenomegaly Musculoskeletal: no gait disturbance, no joint inflammation, no deforming arthritis Extremities: no edema and no cyanosis Neuro: grossly normal exam Results & Data ([facility]) Vital Signs (Past 12 Hours) Vital Signs Temp Pulse Pulse Resp BP Pulse Ox O2 Del Method 03/01/22 07:57 37.2 C 79 22 151/67 H 90 Nasal Cannula 03/01/22 07:33 72 18 94 Nasal Cannula 03/01/22 02:49 36.8 C 70 20 142/60 H 95 Nasal Cannula O2 Flow Rate 03/01/22 07:57 03/01/22 07:33 3 03/01/22 02:49 3 Laboratory Results Laboratory Results - last 24 hr 03/01/22 03/01/22 08:40 08:40 PT 20.2 H INR 2.0 H Sodium 135 L Potassium 3.9 Chloride 95 L Carbon Dioxide 34 H Anion Gap 6 BUN 29 H Creatinine 1.30 H Est Cr Clr Drug Dosing 36.1 Est GFR ( Amer) 43.3 Est GFR (Non-Af Amer) 37.4 BUN/Creatinine Ratio 22.3 H Glucose 141 H Calcium 9.2 Medications Administered Current Inpatient Medications Acetaminophen (Acetaminophen 325 Mg Tab) 650 mg PO Q4H PRN PRN Reason: Pain or Fever Stop: 03/21/22 15:43 Albuterol (Albut/Ipratrop 3mg/0.5mg Neb 3 Ml Vial) 3 ml INH Q6H PRN; Protocol PRN Reason: Shortness Of Breath Or Wheezin Stop: 03/22/22 06:54 Albuterol (Albuterol Hfa 8 Gm Inhaler (Combivent Respimat P&T Subs)) 1 puffs INH BIDR [facility] Stop: 03/22/22 18:59 Last Admin: 03/01/22 07:33 Dose: 1 puffs Amlodipine Besylate (Amlodipine Besylate 5 Mg Tab) 10 mg PO QAM [facility] Stop: 03/26/22 10:29 Last Admin: 03/01/22 08:09 Dose: 10 mg Folic Acid (Folic Acid 1 Mg Tab) 1 mg PO QAM [facility] Stop: 03/22/22 08:59 Last Admin: 03/01/22 08:09 Dose: 1 mg Furosemide (Furosemide 40 Mg/4 Ml Vial) 60 mg IV BID17 [facility] Stop: 03/26/22 18:44 Last Admin: 03/01/22 08:54 Dose: 60 mg Guaifenesin (Guaifenesin 600 Mg Tabcr) 600 mg PO BID [facility] Stop: 03/22/22 08:59 Last Admin: 03/01/22 08:09 Dose: 600 mg Acetazolamide 250 mg/ Dextrose 102.5 mls @ 100 mls/hr IV BID [facility] Stop: 03/26/22 20:59 Last Infusion: 03/01/22 09:56 Dose: Infused Ipratropium [place] (Ipratropium Hfa Inhaler (Combivent Respimat P&T Subs)) 1 puffs INH BIDR [facility] Stop: 03/22/22 18:59 Last Admin: 03/01/22 07:33 Dose: 1 puffs Labetalol HCl (Labetalol Hcl Iv 5 Mg/Ml 20ml) 10 mg IV Q4H PRN PRN Reason: Hypertension Stop: 03/21/22 19:41 Last Admin: 02/20/22 03:51 Dose: 10 mg Levothyroxine Sodium (Levothyroxine Sodium 50 Mcg Tablet) 50 mcg PO DAILYBB [facility] Stop: 03/22/22 07:14 Last Admin: 03/01/22 06:50 Dose: 50 mcg Lisinopril (Lisinopril 40 Mg Tab) 40 mg PO QAM [facility] Stop: 03/25/22 08:59 Last Admin: 03/01/22 08:09 Dose: 40 mg Metoprolol Tartrate (Metoprolol Tartrate 25 Mg Tab) 12.5 mg PO BID [facility] Stop: 03/22/22 08:59 Last Admin: 03/01/22 08:09 Dose: 12.5 mg Nystatin (Nystatin Cr 15 Gm Tube) 1 appln EXT BID [facility] Stop: 03/29/22 09:14 Last Admin: 03/01/22 08:08 Dose: 1 appln Nystatin (Nystatin Susp 500,000 U/5 Ml Udc) 5 ml PO QID [facility] Stop: 03/29/22 12:59 Last Admin: 03/01/22 08:08 Dose: 5 ml Pravastatin Sodium (Pravastatin Sod 40 Mg Tab) 40 mg PO HS [facility] Stop: 03/22/22 20:59 Last Admin: 02/28/22 20:13 Dose: 40 mg Quetiapine Fumarate (Quetiapine Fumarate 25 Mg Tablet) 50 mg PO BID [facility] Stop: 03/22/22 08:59 Last Admin: 03/01/22 08:09 Dose: 50 mg Venlafaxine HCl (Venlafaxine Hcl Xr 75 Mg Capxr) 75 mg PO QAM [facility] Stop: 03/22/22 08:59 Last Admin: 03/01/22 08:09 Dose: 75 mg Venlafaxine HCl (Venlafaxine Hcl Xr 150 Mg Capxr) 150 mg PO QAM [facility] Stop: 03/22/22 08:59 Last Admin: 03/01/22 08:09 Dose: 150 mg Warfarin Sodium (Warfarin Sod 5 Mg Tab) 5 mg PO DAILY@1600 [facility] Stop: 03/28/22 15:59 Last Admin: 02/28/22 16:41 Dose: 5 mg (1) Acute renal failure superimposed on stage 3a chronic kidney disease Acute renal failure type: unspecified Qualified Code(s): N17.9 - Acute kidney failure, unspecified; N18.31 - Chronic kidney disease, stage 3a (2) Dyspnea Dyspnea type: shortness of breath Qualified Code(s): R06.02 - Shortness of breath (3) Pulmonary edema Chronicity: acute Qualified Code(s): J81.0 - Acute pulmonary edema
--- NOTE | 2022-03-01 13:03 | XRay Report ---
XR chest 1V portable CLINICAL HISTORY: f/u CHF COMPARISON STUDY: Chest radiograph February 23, 2022. FINDINGS: No pneumothorax. Moderate left and small right pleural effusions are noted. The left pleura l effusion has slightly increased. Associated left basilar and midlung opacity has increased. There i s persistent pulmonary edema. Cardiomegaly is unchanged. IMPRESSION: 1. Persistent pulmonary edema. 2. Increase in a moderate left pleural effusion with associated airspace opacity. Small right pleural effusion with right basilar opacity. ACT 112: Negative or not required by law. Electronically signed by: Prateek Fredercik M.D. 03/01/2022 1:01 PM
[2022-03-01 13:25] LABS: Renin Activity 0.39 ng/mL/h (0.25-5.82)
[2022-03-01 13:47] LABS: Allen Test Pos (Pos); Base Excess ABG 9.1 mEq/L (-9-1.8); HCO3 ABG 36 mmol/L (19-24); Oxygen Saturation ABG 99.2 % (90-95); PCO2 ABG 60 mmHg (35-46); PO2 ABG 89 mmHg (80-95); pH ABG 7.39 (7.35-7.45)
[2022-03-01] MEDS: WARFARIN SOD 5 MG TAB PO SCH (16:15)
[2022-03-01] MEDS: PRAVASTATIN SOD 40 MG TAB PO SCH (21:30)
--- NOTE | 2022-03-01 23:32 | Hospitalist Progress Note ---
Date of Service March 01, 2022 Assessment & Plan (1) Hypoxemia: (2) Dyspnea: (3) Elevated troponin I level: (4) CHF (congestive heart failure): Plan: Acute decompensated diastolic heart failure likely due to her aortic stenosis. Patient presents with shortness of breath, hypoxia Since she had COVID in June, patient has been using supplemental oxygen In ED she is on 4 L, which seems to be somewhat increased Chest x-ray significant for pulmonary vascular congestion BNP elevated at 1754 Troponin elevated at 399, then 315 Patient denies any chest pain Patient likely presents with an acute CHF Received IV Lasix, IV Decadron, IV antibiotics and aspirin in the ED procalcitonin negative, for now we will hold antibiotic Blood culture no growth Obtained echocardiogram Normal LV chamber size with severe concentric LVH. Normal LV systolic function, EF 60 to 65%. No segmental LV wall motion abnormalities are noted. Grade 3 diastolic dysfunction consistent with restrictive physiology. RV systolic fun ction is reduced as assessed by tricuspid annular plane systolic excursion TAPSE less than 1.6 cm. Severe calcific aortic valve stenosis. VMI 5.8 m/s and PGM of 84 mmHg. Moderate aortic regurg. Calcified mitral apparatus causing mitral stenosis. There is moderate mitral regurg. There is mild mitral stenosis. Severe LA enlargement. Nephrology on board to guide on diuretic management Received 1 gm acetazolamide, C02 down to 40 >> cont to dose 250 mg bid IV Nephrology is managing the diruretic Continue lasix 60 mg IV BID Repeat CXR in am Plan to transition to PO lasix Continue monitor creatinine Cardiology consulted Review of echocardiogram now shows that she has critical aortic stenosis with a maximum velocity of 5.8 m/s and a mean pressure gradient of 84 mmHg, both of which are remarkably abnormal She does present in acute decompensated diastolic heart failure likely due to her aortic stenosis. Will need to discuss patient treatment preference ongoing with TAVR evaluation versus hospice care ultimately Discussed with grand daughter today about TAVR evaluation and hospice - she said that she would let her to make the decision Pt said that she would like to get eval for the TAVR procedure because she would like to do it Discussed with cardiology that will arrange for outpatient follow for TAVR eval once patient is stable Continue to monitor on telemetry Elevated troponin Type 2 CA due to acute decompensated diastolic heart failure likely due to her aortic stenosis Troponin elevated at 399, then 315 Cardiology on board Continue statin, metoprolol and coumadin Currently denies any chest pain Metabolic Alkalosis C02 today is > 45; 42-45 from 02/20-02/22; was 36 on presentation Possible related to diuretic Nephrology on board Continue acetazolamide Urine for urinary free cortisone and urinary cortisol, Renin/aldosterone ordered by nephrology Hypertension Patient found to be quite hypertensive in the ED Received IV Lasix, continue to closely monitor blood pressure Continue Lisinopril 40mg BP stable History of A. fib on warfarin INR 2 today Continue coumadin 5 mg continue to monitor INR Continue Toprol Rate control CKD stage III Continue to monitor creatinine/renal function DVT ppx: On warfarin CODE STATUS DNR/DNI Admission and Anticipated Discharge Date Admission Date: February 19, 2022 Subjective Pt was seen and examined for follow of SOB Lying in bed with no acute distress eating her lunch Denies any chest pain, palpitation, dizziness and SOB Review of Systems Review of Systems: All systems reviewed & are unremarkable except as noted in Subjective Physical Exam Physical Exam: General- No acute distress Head- atraumatic Eyes- PERRL, EOMI, ENT- oropharynx clear Neck- supple, no JVD Lungs- clear to auscultation Heart- regular rhythm; +systolic murmur Abdomen- normal bowel sounds, soft, nontender Extremities- no calf tenderness Neuro- alert, oriented x 3; PERRL, EOMI; no facial palsy; no dysarthria Skin- warm & dry Results & Data Results & Data ([facility]) Vital Signs (Past 12 Hours) Vital Signs Temp Pulse Pulse Resp BP Pulse Ox O2 Del Method 03/01/22 23:10 Nasal Cannula 03/01/22 22:57 36.5 C 59 L 18 104/42 L 90 Nasal Cannula 03/01/22 19:19 66 93 Nasal Cannula 03/01/22 19:14 36.5 C 60 19 111/67 94 Nasal Cannula 03/01/22 16:00 37.0 C 62 18 129/41 L 96 Nasal Cannula 03/01/22 11:59 37 C 64 18 116/48 L 96 Nasal Cannula O2 Flow Rate 03/01/22 23:10 4 03/01/22 22:57 6 03/01/22 19:19 4 03/01/22 19:14 3 03/01/22 16:00 3 03/01/22 11:59 (1) Dyspnea Dyspnea type: shortness of breath Qualified Code(s): R06.02 - Shortness of breath
[2022-03-02] MEDS: LEVOTHYROXINE SODIUM 50 MCG TABLET PO SCH (06:44)
[2022-03-02] MEDS: Albuterol HFA 8 GM Inhaler (Combivent Respimat P&T Subs) INH SCH ×2 (06:49→18:58)
[2022-03-02] MEDS: Ipratropium HFA Inhaler (Combivent Respimat P&T Subs) INH SCH ×2 (06:49→18:58)
[2022-03-02 07:08] LABS: Hematocrit (blood only) 41.3 % (34.1-44.9); Mean Corpuscular Hemoglobin 25.8 pg (25.0-34.0); Mean Corpuscular Hgb Conc 29.1 g/dL (32.0-36.0); Mean Corpuscular Volume 88.6 fL (80.0-100.0); Mean Platelet Volume 11.1 fL (9.4-12.3); Platelet Count 149 K/uL (130-400); RDW Coefficient of Variation 17.4 % (11.5-14.5); RDW Standard Deviation 55.5 fL (36.4-46.3); Red Blood Count 4.66 M/uL (3.93-5.22); White Blood Count 7.35 K/ul (4.8-10.8)
[2022-03-02 07:35] LABS: BUN Creatinine Ratio 23.5 (10-20); Creatinine Clr Calc Pharmacy 35.3 ml/min; Est GFR (African American) 42.5 ml/min; Est GFR (Non-African American) 36.7 ml/min; Potassium 3.6 mmol/L (3.5-5.1)
[2022-03-02 07:37] LABS: INR 2.7 (0.9-1.1); Prothrombin Time 27.3 Seconds (9.0-12.0)
[2022-03-02] MEDS: acetaZOLAMIDE 250 MG in DEXTROSE 5% 100 ML IV SCH (08:31)
[2022-03-02] MEDS: amLODIPine BESYLATE 5 MG TAB PO SCH (08:31)
[2022-03-02] MEDS: FUROSEMIDE 40 MG/4 ML VIAL IV SCH (08:32)
[2022-03-02] MEDS: lisinopril 40 MG TAB PO SCH (08:32)
[2022-03-02] MEDS: guaiFENesin 600 MG TABCR PO SCH ×2 (08:32→20:12)
[2022-03-02] MEDS: FOLIC ACID 1 MG TAB PO SCH (08:32)
[2022-03-02] MEDS: METOPROLOL TARTRATE 25 MG TAB PO SCH ×2 (08:33→20:13)
[2022-03-02] MEDS: NYSTATIN CR 15 GM TUBE EXT SCH ×2 (08:33→20:14)
[2022-03-02] MEDS: NYSTATIN SUSP 500,000 U/5 ML UDC PO SCH ×4 (08:33→20:13)
[2022-03-02] MEDS: VENLAFAXINE HCL XR 75 MG CAPXR PO SCH (08:34)
[2022-03-02] MEDS: VENLAFAXINE HCL XR 150 MG CAPXR PO SCH (08:34)
[2022-03-02] MEDS: QUEtiapine FUMARATE 25 MG TABLET PO SCH ×2 (08:34→20:14)
--- NOTE | 2022-03-02 09:16 | Nephrology Progress Note ---
Date of Service March 02, 2022 Assessment & Plan Admission and Anticipated Discharge Date Admission Date: February 19, 2022 Subjective Assessment & Plan (1) Metabolic alkalosis with respiratory acidosis: Plan: pt on relatively small diuretic dose prior to admission (lasix 20 mg bid) and since arrival but with already elevated baseline bicarbonate and with exaggerated response to relatively minimal doses of IV lasix at that time. Notably K is wnl, despite no supplementation at all after daily lasix doses above. no losses of upper GI secretions so this almost has to be diuretic driven w/ some underlying propensity to metabolic alkalosis. severe metabolic alkalosis cause unclear is limiting her needed diuresis. atypically w/ high normal potassium. Repeat CXR to reasess Fluid status/Pulm edema--persistent. Repeat ABG showed pH of 7.39 and lot less bicarb Change to oral lasix 40 bid. Stop Iv Diamox given that pH is now less than 7.4 She can have slightly high Bicarb level going forward her overall condition and the cardiology note reviewed and maybe Palliative is the better option Subjective Feels very tired still but dyspnea improving.hard to get history. no pain, ongoing incontinence of urine Review of Systems Review of Systems: All systems reviewed & are unremarkable except as noted in Subjective Physical Exam Constitutional: well developed (stting in bedon 2L NC), well nourished, + obese and cooperative; no acute distress Eyes: EOM intact bilaterally ENMT: Ears: no external ear abnormality Nose: no external nose abnormality Mouth: + dry oral mucous membranes Neck: no nuchal rigidity Respiratory: + labored breathing (karen w/ exam maneuve rs), able to speak in complete sentences and + tachypneic Auscultation: + diminished lung sounds and + crackles Cardiovascular: Rate/Rhythm: regular rate and regular rhythm Heart Sounds: + murmur Extremities: + edema (trace) Gastrointestinal (Abdomen): Inspection/Auscultation: normal bowel sounds Percussion/Palpation: abdomen soft; abdomen nontender Musculoskeletal: Extremities: strength 5/5 throughout Skin: no rashes, warm and dry Psychiatric: Orientation: oriented x 3 Speech: normal rate/rhythm/volume of speech Affect: euthymic affect Results & Data ([facility]) Vital Signs (Past 12 Hours) Vital Signs Temp Pulse Pulse Pulse Resp BP Pulse Ox 03/02/22 08:16 36.6 C 84 26 H 138/52 L 95 03/02/22 08:00 03/02/22 07:29 63 03/02/22 06:49 75 28 H 92 03/01/22 22:40 56 L 03/02/22 03:32 36.7 C 62 16 118/65 92 03/01/22 23:10 03/01/22 22:57 36.5 C 59 L 18 104/42 L 90 Pulse Ox O2 Del Method O2 Del Method O2 Flow Rate O2 Flow Rate 03/02/22 08:16 Nasal Cannula 4.0 03/02/22 08:00 92 Nasal Cannula 6 03/02/22 07:29 03/02/22 06:49 Nasal Cannula 5 03/01/22 22:40 03/02/22 03:32 Nasal Cannula 4 03/01/22 23:10 Nasal Cannula 4 03/01/22 22:57 Nasal Cannula 6
--- NOTE | 2022-03-02 09:19 | Hospitalist Progress Note ---
Date of Service March 02, 2022 Assessment & Plan (1) Hypoxemia: (2) Dyspnea: (3) Elevated troponin I level: (4) CHF (congestive heart failure): Plan: Acute decompensated diastolic heart failure likely due to her aortic stenosis. Patient presents with shortness of breath, hypoxia Since she had COVID in June, patient has been using supplemental oxygen In ED she is on 4 L, which seems to be somewhat increased Chest x-ray significant for pulmonary vascular congestion BNP elevated at 1754 Troponin elevated at 399, then 315 Patient denies any chest pain Patient likely presents with an acute CHF Received IV Lasix, IV Decadron, IV antibiotics and aspirin in the ED procalcitonin negative, for now we will hold antibiotic Blood culture no growth Obtained echocardiogram Normal LV chamber size with severe concentric LVH. Normal LV systolic function, EF 60 to 65%. No segmental LV wall motion abnormalities are noted. Grade 3 diastolic dysfunction consistent with restrictive physiology. RV systolic fun ction is reduced as assessed by tricuspid annular plane systolic excursion TAPSE less than 1.6 cm. Severe calcific aortic valve stenosis. VMI 5.8 m/s and PGM of 84 mmHg. Moderate aortic regurg. Calcified mitral apparatus causing mitral stenosis. There is moderate mitral regurg. There is mild mitral stenosis. Severe LA enlargement. Nephrology following to guide on diuretic management - given metabolic alkalosis Received acetazolamide, C02 down to 40 >> cont to dose 250 mg bid IV - stopped now Nephrology is managing the diruretic lasix 60 mg IV BID - switch to PO 40 bid Repeat CXR - shows pulm, vasc. congestion Continue monitor creatinine Cardiology consulted Review of echocardiogram now shows that she has critical aortic stenosis with a maximum velocity of 5.8 m/s and a mean pressure gradient of 84 mmHg, both of which are remarkably abnormal She does present in acute decompensated diastolic heart failure likely due to her aortic stenosis. Will need to discuss patient treatment preference ongoing with TAVR evaluation versus hospice care ultimately Discussed with grand daughter about TAVR evaluation and hospice - she said that she would let her to make the decision Pt said that she would like to get eval for the TAVR procedure because she would like to do it Discussed with cardiology that will arrange for outpatient follow for TAVR eval once patient is stable however given pt's dementia - not a good candidate for the procedure Also pt not improving much - cont. to use 5L of suppl. O2 Cardiology also recommends palliative med. consultation - ordered Continue to monitor on telemetry Elevated troponin Type 2 WV due to acute decompensated diastolic heart failure likely due to her aortic stenosis Troponin elevated at 399, then 315 Cardiology on board Continue statin, metoprolol and coumadin Currently denies any chest pain Metabolic Alkalosis C02 > 45; 42-45 from 02/20-02/22; was 36 on presentation Possible related to diuretic Nephrology on board Continued acetazolamide - stop now Urine for urinary free cortisone and urinary cortisol, Renin/aldosterone ordered by nephrology Hypertension Patient found to be quite hypertensive in the ED Received IV Lasix, continue to closely monitor blood pressure Continue Lisinopril 40mg BP stable History of A. fib on warfarin INR 2 today Continue coumadin 5 mg continue to monitor INR Continue Toprol Rate control CKD stage III Continue to monitor creatinine/renal function DVT ppx: On warfarin CODE STATUS DNR/DNI Admission and Anticipated Discharge Date Admission Date: February 19, 2022 Subjective Pt was seen and examined for follow of hypoxia, shortness of breath, CHF exacerbation Sitting up in chair, in no acute distress, but on suppl. O2 5L Denies any chest pain, palpitation, dizziness or incr. shortness of breath. reports some minimal cough Cardiology and nephrology following Palliative medicine also consulted Review of Systems Review of Systems: All systems reviewed & are unremarkable except as noted in Subjective Physical Exam Physical Exam: Constitutional:J obese F , +ill aria earing, in NAD on suppl. O2 via NC 5 L Eyes: PERRL, EOMI, conju nctivae normal, an icteric sclerae ENMT: external ear and n ose normal, oropha rynx normal Neck: + thick neck Respiratory: normal respiratory effort, +mild aircraft fueler ckles at bases, no wheezing, diminis hed BS Cardiovascular:J RRR, +syst. murmur , minimal LE edema Chest (Breasts): Chest: normal insp ection of chest Gastrointestinal ( Abdomen): normal bowel sound s, soft, nontender Musculoskeletal: extremities motor strength 5/5 (mini mal LE edema b/l) Skin: no rashes, warm an d dry Neurologic: PERRL, EOMI, no fa ce palsy, no dysar thria, moves extre mities Psychiatric: A+Ox3, euthymic af fect Lymphatic: + lymphedema (mil d LE edema b/l) Results & Data Results & Data ([facility]) Vital Signs (Past 12 Hours) Vital Signs Temp Pulse Pulse Pulse Resp BP Pulse Ox 03/02/22 08:16 36.6 C 84 26 H 138/52 L 95 03/02/22 08:00 03/02/22 07:29 63 03/02/22 06:49 75 28 H 92 03/01/22 22:40 56 L 03/02/22 03:32 36.7 C 62 16 118/65 92 03/01/22 23:10 03/01/22 22:57 36.5 C 59 L 18 104/42 L 90 Pulse Ox O2 Del Method O2 Del Method O2 Flow Rate O2 Flow Rate 03/02/22 08:16 Nasal Cannula 4.0 03/02/22 08:00 92 Nasal Cannula 6 03/02/22 07:29 03/02/22 06:49 Nasal Cannula 5 03/01/22 22:40 03/02/22 03:32 Nasal Cannula 4 03/01/22 23:10 Nasal Cannula 4 03/01/22 22:57 Nasal Cannula 6 Laboratory Results 03/02/22 03/02/22 03/02/22 Range/Units 06:50 06:50 06:50 WBC 7.35 (4.8-10.8) K/ul RBC 4.66 (3.93-5.22) M/uL Hgb 12.0 (12.0-16.0) g/dl Hct 41.3 (34.1-44.9) % MCV 88.6 (80.0-100.0) fL MCH 25.8 (25.0-34.0) pg MCHC 29.1 L (32.0-36.0) g/dL RDW Std Deviation 55.5 H (36.4-46.3) fL RDW Coeff of Bozena 17.4 H (11.5-14.5) % Plt Count 149 (130-400) K/uL MPV 11.1 (9.4-12.3) fL PT 27.3 H (9.0-12.0) Seconds INR 2.7 H (0.9-1.1) ABG pH (7.35-7.45) ABG pCO2 (35-46) mmHg ABG pO2 (80-95) mmHg ABG HCO3 (19-24) mmol/L ABG O2 Saturation (90-95) % ABG Base Excess (-9-1.8) mEq/L Sunil Test (Pos) Oxygen Given Sodium 136 (136-145) mmol/L Potassium 3.6 (3.5-5.1) mmol/L Chloride 97 L (98-107) mmol/L Carbon Dioxide 32 (21-32) mmol/L Anion Gap 7 (3-11) BUN 31 H (6-23) mg/dl Creatinine 1.32 H (0.6-1.2) mg/dl Est Cr Clr Drug Dosing 35.3 ml/min Est GFR ( Amer) 42.5 ml/min Est GFR (Non-Af Amer) 36.7 ml/min BUN/Creatinine Ratio 23.5 H (10-20) Glucose 90 (70-99(Fasting)) mg/dl Calcium 9.0 (8.5-10.1) mg/dl Renin Activity (0.25-5.82) ng/mL/h Aldosterone (see note) ng/dL 03/01/22 03/01/22 03/01/22 Range/Units 12:27 08:40 08:40 WBC (4.8-10.8) K/ul RBC (3.93-5.22) M/uL Hgb (12.0-16.0) g/dl Hct (34.1-44.9) % MCV (80.0-100.0) fL MCH (25.0-34.0) pg MCHC (32.0-36.0) g/dL RDW Std Deviation (36.4-46.3) fL RDW Coeff of Bozena (11.5-14.5) % Plt Count (130-400) K/uL MPV (9.4-12.3) fL PT 20.2 H (9.0-12.0) Seconds INR 2.0 H (0.9-1.1) ABG pH 7.39 (7.35-7.45) ABG pCO2 60 H (35-46) mmHg ABG pO2 89 (80-95) mmHg ABG HCO3 36 H (19-24) mmol/L ABG O2 Saturation 99.2 H (90-95) % ABG Base Excess 9.1 H (-9-1.8) mEq/L Sunil Test Pos (Pos) Oxygen Given 3 L Sodium 135 L (136-145) mmol/L Potassium 3.9 (3.5-5.1) mmol/L Chloride 95 L (98-107) mmol/L Carbon Dioxide 34 H (21-32) mmol/L Anion Gap 6 (3-11) BUN 29 H (6-23) mg/dl Creatinine 1.30 H (0.6-1.2) mg/dl Est Cr Clr Drug Dosing 36.1 ml/min Est GFR ( Amer) 43.3 ml/min Est GFR (Non-Af Amer) 37.4 ml/min BUN/Creatinine Ratio 22.3 H (10-20) Glucose 141 H (70-99(Fasting)) mg/dl Calcium 9.2 (8.5-10.1) mg/dl Renin Activity (0.25-5.82) ng/mL/h Aldosterone (see note) ng/dL 02/24/22 Range/Units 06:25 WBC (4.8-10.8) K/ul RBC (3.93-5.22) M/uL Hgb (12.0-16.0) g/dl Hct (34.1-44.9) % MCV (80.0-100.0) fL MCH (25.0-34.0) pg MCHC (32.0-36.0) g/dL RDW Std Deviation (36.4-46.3) fL RDW Coeff of Bozena (11.5-14.5) % Plt Count (130-400) K/uL MPV (9.4-12.3) fL PT (9.0-12.0) Seconds INR (0.9-1.1) ABG pH (7.35-7.45) ABG pCO2 (35-46) mmHg ABG pO2 (80-95) mmHg ABG HCO3 (19-24) mmol/L ABG O2 Saturation (90-95) % ABG Base Excess (-9-1.8) mEq/L Sunil Test (Pos) Oxygen Given Sodium (136-145) mmol/L Potassium (3.5-5.1) mmol/L Chloride (98-107) mmol/L Carbon Dioxide (21-32) mmol/L Anion Gap (3-11) BUN (6-23) mg/dl Creatinine (0.6-1.2) mg/dl Est Cr Clr Drug Dosing ml/min Est GFR ( Amer) ml/min Est GFR (Non-Af Amer) ml/min BUN/Creatinine Ratio (10-20) Glucose (70-99(Fasting)) mg/dl Calcium (8.5-10.1) mg/dl Renin Activity 0.39 (0.25-5.82) ng/mL/h Aldosterone <1 (see note) ng/dL Medications Administered Current Inpatient Medications Acetaminophen (Acetaminophen 325 Mg Tab) 650 mg PO Q4H PRN PRN Reason: Pain or Fever Stop: 03/21/22 15:43 Albuterol (Albut/Ipratrop 3mg/0.5mg Neb 3 Ml Vial) 3 ml INH Q6H PRN; Protocol PRN Reason: Shortness Of Breath Or Wheezin Stop: 03/22/22 06:54 Albuterol (Albuterol Hfa 8 Gm Inhaler (Combivent Respimat P&T Subs)) 1 puffs INH BIDR [facility] Stop: 03/22/22 18:59 Last Admin: 03/02/22 06:49 Dose: 1 puffs Amlodipine Besylate (Amlodipine Besylate 5 Mg Tab) [facility] Stop: 03/26/22 10:29 Last Admin: 03/02/22 08:31 Dose: 10 mg Folic Acid (Folic Acid 1 Mg Tab) 1 mg PO QAM [facility] Stop: 03/22/22 08:59 Last Admin: 03/02/22 08:32 Dose: 1 mg Furosemide (Furosemide 40 Mg Tab) 40 mg PO QAM [facility] Stop: 04/02/22 08:59 Guaifenesin (Guaifenesin 600 Mg Tabcr) 600 mg PO BID [facility] Stop: 03/22/22 08:59 Last Admin: 03/02/22 08:32 Dose: 600 mg Ipratropium [place] (Ipratropium Hfa Inhaler (Combivent Respimat P&T Subs)) 1 puffs INH BIDR [facility] Stop: 03/22/22 18:59 Last Admin: 03/02/22 06:49 Dose: 1 puffs Labetalol HCl (Labetalol Hcl Iv 5 Mg/Ml 20ml) 10 mg IV Q4H PRN PRN Reason: Hypertension Stop: 03/21/22 19:41 Last Admin: 02/20/22 03:51 Dose: 10 mg Levothyroxine Sodium (Levothyroxine Sodium 50 Mcg Tablet) 50 mcg PO DAILYBB [facility] Stop: 03/22/22 07:14 Last Admin: 03/02/22 06:44 Dose: 50 mcg Lisinopril (Lisinopril 40 Mg Tab) 40 mg PO QAM [facility] Stop: 03/25/22 08:59 Last Admin: 03/02/22 08:32 Dose: 40 mg Metoprolol Tartrate (Metoprolol Tartrate 25 Mg Tab) 12.5 mg PO BID [facility] Stop: 03/22/22 08:59 Last Admin: 03/02/22 08:33 Dose: 12.5 mg Nystatin (Nystatin Cr 15 Gm Tube) 1 appln EXT BID [facility] Stop: 03/29/22 09:14 Last Admin: 03/02/22 08:33 Dose: 1 appln Nystatin (Nystatin Susp 500,000 U/5 Ml Udc) 5 ml PO QID [facility] Stop: 03/29/22 12:59 Last Admin: 03/02/22 08:33 Dose: 5 ml Pravastatin Sodium (Pravastatin Sod 40 Mg Tab) 40 mg PO HS [facility] Stop: 03/22/22 20:59 Last Admin: 03/01/22 21:30 Dose: 40 mg Quetiapine Fumarate (Quetiapine Fumarate 25 Mg Tablet) 50 mg PO BID [facility] Stop: 03/22/22 08:59 Last Admin: 03/02/22 08:34 Dose: 50 mg Venlafaxine HCl (Venlafaxine Hcl Xr 75 Mg Capxr) 75 mg PO QAM [facility] Stop: 03/22/22 08:59 Last Admin: 03/02/22 08:34 Dose: 75 mg Venlafaxine HCl (Venlafaxine Hcl Xr 150 Mg Capxr) 150 mg PO QAM [facility] Stop: 03/22/22 08:59 Last Admin: 03/02/22 08:34 Dose: 150 mg Warfarin Sodium (Warfarin Sod 5 Mg Tab) 5 mg PO DAILY@1600 [facility] Stop: 03/28/22 15:59 Last Admin: 03/01/22 16:15 Dose: 5 mg (1) Dyspnea Dyspnea type: shortness of breath Qualified Code(s): R06.02 - Shortness of breath
[2022-03-02] MEDS ORDERED: POTASSIUM CHLORIDE PWD 20 MEQ PACK PO ONE (09:30)
--- NOTE | 2022-03-02 11:13 | Cardiology Progress Note ---
Date of Service March 02, 2022 Assessment & Plan (1) Acute diastolic CHF (congestive heart failure), NYHA class 4: (2) Critical aortic valve stenosis: (3) Hypoxemia: (4) Dyspnea: (5) Pulmonary edema: (6) Chronic a-fib: (7) Acute renal failure superimposed on stage 3a chronic kidney disease: Plan As mentioned previously, this patient has senile dementia and although she may have her good days she relapses back into dementia. The long and short of it is, I do not believe that she is a candidate for SUZANNE. A palliative care consult may be helpful and outpatient hospice may be helpful. We have nothing more to add to this case at this time. Cardiology will sign off. Call with any questions. Admission and Anticipated Discharge Date Admission Date: February 19, 2022 Subjective The patient had an uneventful night. No new cardiac problems. Review of Systems Review of Systems: Review of Systems: See HPI for pertinent positives. All other 10 point review of systems are negative. Physical Exam Physical Exam: General: no acute distress and stated age Head: normocephalic, no masses, lesions, tenderness or abnormalities Eyes: conjunctiva are pink and non-injected, sclera clear Neck: supple, no adenopathy, no bruits, normal jugular venous pulse, no hepatojugular reflux Chest: normal shape and normal respiratory effort Lungs: clear to auscultation and percussion Cardiac Exam: - irregular rate & rhythm, systolic murmur left sternal border radiating to the carotids- normal S1, normal S2 Pulses: 2(+) throughout Abdomen: abdomen soft, non-tender, no abnormal masses and no hepatosplenomegaly Musculoskeletal: no gait disturbance, no joint inflammation, no deforming arthritis Extremities: no edema and no cyanosis Neuro: grossly normal exam Results & Data ([facility]) Vital Signs (Past 12 Hours) Vital Signs Temp Pulse Pulse Pulse Resp BP Pulse Ox 03/02/22 09:00 03/02/22 08:16 36.6 C 84 26 H 138/52 L 95 03/02/22 08:00 03/02/22 07:29 63 03/02/22 06:49 75 28 H 92 03/02/22 03:32 36.7 C 62 16 118/65 92 03/01/22 23:10 Pulse Ox O2 Del Method O2 Del Method O2 Flow Rate O2 Flow Rate 03/02/22 09:00 Nasal Cannula 6 03/02/22 08:16 Nasal Cannula 4.0 03/02/22 08:00 92 Nasal Cannula 6 03/02/22 07:29 03/02/22 06:49 Nasal Cannula 5 03/02/22 03:32 Nasal Cannula 4 03/01/22 23:10 Nasal Cannula 4 Laboratory Results Laboratory Results - last 24 hr 02/24/22 03/01/22 03/02/22 06:25 12:27 06:50 WBC 7.35 RBC 4.66 Hgb 12.0 Hct 41.3 MCV 88.6 MCH 25.8 MCHC 29.1 L RDW Std Deviation 55.5 H RDW Coeff of Bozena 17.4 H Plt Count 149 MPV 11.1 PT INR ABG pH 7.39 ABG pCO2 60 H ABG pO2 89 ABG HCO3 36 H ABG O2 Saturation 99.2 H ABG Base Excess 9.1 H Sunil Test Pos Oxygen Given 3 L Sodium Potassium Chloride Carbon Dioxide Anion Gap BUN Creatinine Est Cr Clr Drug Dosing Est GFR ( Amer) Est GFR (Non-Af Amer) BUN/Creatinine Ratio Glucose Calcium Renin Activity 0.39 Aldosterone <1 03/02/22 03/02/22 06:50 06:50 WBC RBC Hgb Hct MCV MCH MCHC RDW Std Deviation RDW Coeff of Bozena Plt Count MPV PT 27.3 H INR 2.7 H ABG pH ABG pCO2 ABG pO2 ABG HCO3 ABG O2 Saturation ABG Base Excess Sunil Test Oxygen Given Sodium 136 Potassium 3.6 Chloride 97 L Carbon Dioxide 32 Anion Gap 7 BUN 31 H Creatinine 1.32 H Est Cr Clr Drug Dosing 35.3 Est GFR ( Amer) 42.5 Est GFR (Non-Af Amer) 36.7 BUN/Creatinine Ratio 23.5 H Glucose 90 Calcium 9.0 Renin Activity Aldosterone Medications Administered Current Inpatient Medications Acetaminophen (Acetaminophen 325 Mg Tab) 650 mg PO Q4H PRN PRN Reason: Pain or Fever Stop: 03/21/22 15:43 Albuterol (Albut/Ipratrop 3mg/0.5mg Neb 3 Ml Vial) 3 ml INH Q6H PRN; Protocol PRN Reason: Shortness Of Breath Or Wheezin Stop: 03/22/22 06:54 Albuterol (Albuterol Hfa 8 Gm Inhaler (Combivent Respimat P&T Subs)) 1 puffs INH BIDR [facility] Stop: 03/22/22 18:59 Last Admin: 03/02/22 06:49 Dose: 1 puffs Amlodipine Besylate (Amlodipine Besylate 5 Mg Tab) 10 mg PO QAM [facility] Stop: 03/26/22 10:29 Last Admin: 03/02/22 08:31 Dose: 10 mg Folic Acid (Folic Acid 1 Mg Tab) 1 mg PO QAM [facility] Stop: 03/22/22 08:59 Last Admin: 03/02/22 08:32 Dose: 1 mg Furosemide (Furosemide 40 Mg Tab) 40 mg PO BID17 [facility] Stop: 04/01/22 16:59 Guaifenesin (Guaifenesin 600 Mg Tabcr) 600 mg PO BID [facility] Stop: 03/22/22 08:59 Last Admin: 03/02/22 08:32 Dose: 600 mg Ipratropium [place] (Ipratropium Hfa Inhaler (Combivent Respimat P&T Subs)) 1 puffs INH BIDR [facility] Stop: 03/22/22 18:59 Last Admin: 03/02/22 06:49 Dose: 1 puffs Labetalol HCl (Labetalol Hcl Iv 5 Mg/Ml 20ml) 10 mg IV Q4H PRN PRN Reason: Hypertension Stop: 03/21/22 19:41 Last Admin: 02/20/22 03:51 Dose: 10 mg Levothyroxine Sodium (Levothyroxine Sodium 50 Mcg Tablet) 50 mcg PO DAILYBB [facility] Stop: 03/22/22 07:14 Last Admin: 03/02/22 06:44 Dose: 50 mcg Lisinopril (Lisinopril 40 Mg Tab) 40 mg PO QAM [facility] Stop: 03/25/22 08:59 Last Admin: 03/02/22 08:32 Dose: 40 mg Metoprolol Tartrate (Metoprolol Tartrate 25 Mg Tab) 12.5 mg PO BID [facility] Stop: 03/22/22 08:59 Last Admin: 03/02/22 08:33 Dose: 12.5 mg Nystatin (Nystatin Cr 15 Gm Tube) 1 appln EXT BID [facility] Stop: 03/29/22 09:14 Last Admin: 03/02/22 08:33 Dose: 1 appln Nystatin (Nystatin Susp 500,000 U/5 Ml Udc) 5 ml PO QID [facility] Stop: 03/29/22 12:59 Last Admin: 03/02/22 08:33 Dose: 5 ml Pravastatin Sodium (Pravastatin Sod 40 Mg Tab) 40 mg PO HS [facility] Stop: 03/22/22 20:59 Last Admin: 03/01/22 21:30 Dose: 40 mg Quetiapine Fumarate (Quetiapine Fumarate 25 Mg Tablet) 50 mg PO BID [facility] Stop: 03/22/22 08:59 Last Admin: 03/02/22 08:34 Dose: 50 mg Venlafaxine HCl (Venlafaxine Hcl Xr 75 Mg Capxr) 75 mg PO QAM [facility] Stop: 03/22/22 08:59 Last Admin: 03/02/22 08:34 Dose: 75 mg Venlafaxine HCl (Venlafaxine Hcl Xr 150 Mg Capxr) 150 mg PO QAM [facility] Stop: 03/22/22 08:59 Last Admin: 03/02/22 08:34 Dose: 150 mg Warfarin Sodium (Warfarin Sod 5 Mg Tab) 5 mg PO DAILY@1600 [facility] Stop: 03/28/22 15:59 Last Admin: 03/01/22 16:15 Dose: 5 mg (1) Dyspnea Dyspnea type: shortness of breath Qualified Code(s): R06.02 - Shortness of breath (2) Pulmonary edema Chronicity: acute Qualified Code(s): J81.0 - Acute pulmonary edema (3) Acute renal failure superimposed on stage 3a chronic kidney disease Acute renal failure type: unspecified Qualified Code(s): N17.9 - Acute kidney failure, unspecified; N18.31 - Chronic kidney disease, stage 3a
[2022-03-02] MEDS ORDERED: DOCUSATE SODIUM 100 MG CAP PO ONE (13:46)
[2022-03-02] MEDS ORDERED: POLYETHYLENE (MIRALAX) 17 GM PACK PO SCH (14:00)
[2022-03-02] MEDS: WARFARIN SOD 5 MG TAB PO SCH (16:39)
[2022-03-02] MEDS: FUROSEMIDE 40 MG TAB PO SCH (16:40)
[2022-03-02] MEDS: PRAVASTATIN SOD 40 MG TAB PO SCH (20:13)
[2022-03-03] MEDS: LEVOTHYROXINE SODIUM 50 MCG TABLET PO SCH (06:46)
[2022-03-03 06:54] LABS: Hematocrit (blood only) 39.8 % (34.1-44.9); Hemoglobin 11.5 g/dl (12.0-16.0); Mean Corpuscular Hemoglobin 25.9 pg (25.0-34.0); Mean Corpuscular Hgb Conc 28.9 g/dL (32.0-36.0); Mean Corpuscular Volume 89.6 fL (80.0-100.0); Mean Platelet Volume 10.4 fL (9.4-12.3); Platelet Count 139 K/uL (130-400); RDW Coefficient of Variation 17.3 % (11.5-14.5); RDW Standard Deviation 55.9 fL (36.4-46.3); Red Blood Count 4.44 M/uL (3.93-5.22); White Blood Count 7.56 K/ul (4.8-10.8)
[2022-03-03 07:14] LABS: INR 3.6 (0.9-1.1); Prothrombin Time 35.7 Seconds (9.0-12.0)
[2022-03-03 07:31] LABS: BUN Creatinine Ratio 24.8 (10-20); Calcium 8.8 mg/dl (8.5-10.1); Est GFR (African American) 40.7 ml/min; Est GFR (Non-African American) 35.1 ml/min; Magnesium 2.2 mg/dl (1.7-2.4); Phosphorus 4.3 mg/dl (2.5-4.9); Potassium 3.5 mmol/L (3.5-5.1)
--- NOTE | 2022-03-03 07:32 | Hospitalist Progress Note ---
Date of Service March 03, 2022 Assessment & Plan (1) Hypoxemia: (2) Dyspnea: (3) Elevated troponin I level: (4) CHF (congestive heart failure): Plan: Acute decompensated diastolic heart failure likely due to her aortic stenosis. Patient presents with shortness of breath, hypoxia Since she had COVID in June, patient has been using supplemental oxygen In ED she is on 4 L, which seems to be somewhat increased Chest x-ray significant for pulmonary vascular congestion BNP elevated at 1754 Troponin elevated at 399, then 315 Patient denies any chest pain Patient likely presents with an acute CHF Received IV Lasix, IV Decadron, IV antibiotics and aspirin in the ED procalcitonin negative, for now we will hold antibiotic Blood culture no growth Obtained echocardiogram Normal LV chamber size with severe concentric LVH. Normal LV systolic function, EF 60 to 65%. No segmental LV wall motion abnormalities are noted. Grade 3 diastolic dysfunction consistent with restrictive physiology. RV systolic fun ction is reduced as assessed by tricuspid annular plane systolic excursion TAPSE less than 1.6 cm. Severe calcific aortic valve stenosis. VMI 5.8 m/s and PGM of 84 mmHg. Moderate aortic regurg. Calcified mitral apparatus causing mitral stenosis. There is moderate mitral regurg. There is mild mitral stenosis. Severe LA enlargement. Nephrology following to guide on diuretic management - given metabolic alkalosis Received acetazolamide, C02 down to 40 >> cont to dose 250 mg bid IV - stopped now Nephrology is managing the diruretic lasix 60 mg IV BID - switched to PO 40 bid -> 8/3 now w/ incr. O2 requirement - discussed w/ nephro give lasix 80 iv Repeat CXR - shows pulm, vasc. congestion Continue monitor creatinine Cardiology consulted Review of echocardiogram now shows that she has critical aortic stenosis with a maximum velocity of 5.8 m/s and a mean pressure gradient of 84 mmHg, both of which are remarkably abnormal She does present in acute decompensated diastolic heart failure likely due to her aortic stenosis. Will need to discuss patient treatment preference ongoing with TAVR evaluation versus hospice care ultimately Discussed with grand daughter about TAVR evaluation and hospice - she said that she would let her to make the decision Pt said that she would like to get eval for the TAVR procedure because she would like to do it Discussed with cardiology that will arrange for outpatient follow for TAVR eval once patient is stable however given pt's dementia - not a good candidate for the procedure Also pt not improving much - cont. to use 5L of suppl. O2 Cardiology also recommends palliative med. consultation - ordered- plan to see the pt on 03/03 Continue to monitor on telemetry Elevated troponin Type 2 VA due to acute decompensated diastolic heart failure likely due to her aortic stenosis Troponin elevated at 399, then 315 Cardiology on board Continue statin, metoprolol and coumadin Currently denies any chest pain Metabolic Alkalosis C02 > 45; 42-45 from 02/20-02/22; was 36 on presentation Possible related to diuretic Nephrology on board Continued acetazolamide - stop now Urine for urinary free cortisone and urinary cortisol, Renin/aldosterone ordered by nephrology Hypertension Patient found to be quite hypertensive in the ED Received IV Lasix, continue to closely monitor blood pressure Continue Lisinopril 40mg BP stable History of A. fib on warfarin INR 2 today Continue coumadin 5 mg continue to monitor INR Continue Toprol Rate control CKD stage III Continue to monitor creatinine/renal function DVT ppx: On warfarin CODE STATUS DNR/DNI Admission and Anticipated Discharge Date Admission Date: February 19, 2022 Subjective Pt was seen and examined for follow of hypoxia, shortness of breath, CHF exacerbation Sitting up in bed, in no acute distress, but on oxymask Feeling very weak and with incr. shortness of breath Denies any chest pain, palpitation, dizziness, has minimal cough Cardiology and nephrology following Palliative medicine also consulted Called Lydia JONES, only able to leave a message. Review of Systems Review of Systems: All systems reviewed & are unremarkable except as noted in Subjective Physical Exam Physical Exam: Constitutional:J obese F , +ill aria earing, in NAD on oxymask Eyes: PERRL, EOMI, conju nctivae normal, an icteric sclerae ENMT: external ear and n ose normal, oropha rynx normal Neck: + thick neck Respiratory: normal respiratory effort, + crackle s, no wheezing, di minished BS Cardiovascular:J RRR, +syst. murmur , minimal LE edema Chest (Breasts): Chest: normal insp ection of chest Gastrointestinal ( Abdomen): normal bowel sound s, soft, nontender Musculoskeletal: extremities motor strength 5/5 (mini mal LE edema b/l) Skin: no rashes, warm an d dry Neurologic: PERRL, EOMI, no fa ce palsy, no dysar thria, moves extre mities Psychiatric: A+Ox3, euthymic af fect Lymphatic: + lymphedema (mil d LE edema b/l) Results & Data Results & Data ([facility]) Vital Signs (Past 12 Hours) Vital Signs Temp Pulse Pulse Resp BP Pulse Ox O2 Del Method 03/02/22 22:16 54 L 03/03/22 03:13 36.7 C 65 20 125/58 L 93 Oxymask 03/02/22 20:45 Nasal Cannula 03/02/22 22:58 36.6 C 58 L 18 119/68 96 Nasal Cannula 03/02/22 19:33 36.8 C 64 19 131/51 L 93 Room Air O2 Flow Rate 03/02/22 22:16 03/03/22 03:13 6 03/02/22 20:45 5 03/02/22 22:58 5 03/02/22 19:33 5 Laboratory Results 03/03/22 03/03/22 03/03/22 Range/Units 06:27 06:27 06:27 WBC 7.56 (4.8-10.8) K/ul RBC 4.44 (3.93-5.22) M/uL Hgb 11.5 L (12.0-16.0) g/dl Hct 39.8 (34.1-44.9) % MCV 89.6 (80.0-100.0) fL MCH 25.9 (25.0-34.0) pg MCHC 28.9 L (32.0-36.0) g/dL RDW Std Deviation 55.9 H (36.4-46.3) fL RDW Coeff of Bozena 17.3 H (11.5-14.5) % Plt Count 139 (130-400) K/uL MPV 10.4 (9.4-12.3) fL PT 35.7 H (9.0-12.0) Seconds INR 3.6 H (0.9-1.1) Sodium 138 (136-145) mmol/L Potassium 3.5 (3.5-5.1) mmol/L Chloride 97 L (98-107) mmol/L Carbon Dioxide 36 H (21-32) mmol/L Anion Gap 5 (3-11) BUN 34 H (6-23) mg/dl Creatinine 1.37 H (0.6-1.2) mg/dl Est Cr Clr Drug Dosing 34.0 ml/min Est GFR ( Amer) 40.7 ml/min Est GFR (Non-Af Amer) 35.1 ml/min BUN/Creatinine Ratio 24.8 H (10-20) Glucose 96 (70-99(Fasting)) mg/dl Calcium 8.8 (8.5-10.1) mg/dl Phosphorus 4.3 (2.5-4.9) mg/dl Magnesium 2.2 (1.7-2.4) mg/dl ACTH (6-50) pg/mL 02/25/22 Range/Units 05:52 WBC (4.8-10.8) K/ul RBC (3.93-5.22) M/uL Hgb (12.0-16.0) g/dl Hct (34.1-44.9) % MCV (80.0-100.0) fL MCH (25.0-34.0) pg MCHC (32.0-36.0) g/dL RDW Std Deviation (36.4-46.3) fL RDW Coeff of Bozena (11.5-14.5) % Plt Count (130-400) K/uL MPV (9.4-12.3) fL PT (9.0-12.0) Seconds INR (0.9-1.1) Sodium (136-145) mmol/L Potassium (3.5-5.1) mmol/L Chloride (98-107) mmol/L Carbon Dioxide (21-32) mmol/L Anion Gap (3-11) BUN (6-23) mg/dl Creatinine (0.6-1.2) mg/dl Est Cr Clr Drug Dosing ml/min Est GFR ( Amer) ml/min Est GFR (Non-Af Amer) ml/min BUN/Creatinine Ratio (10-20) Glucose (70-99(Fasting)) mg/dl Calcium (8.5-10.1) mg/dl Phosphorus (2.5-4.9) mg/dl Magnesium (1.7-2.4) mg/dl ACTH 89 H (6-50) pg/mL Medications Administered Current Inpatient Medications Acetaminophen (Acetaminophen 325 Mg Tab) 650 mg PO Q4H PRN PRN Reason: Pain or Fever Stop: 03/21/22 15:43 Albuterol (Albut/Ipratrop 3mg/0.5mg Neb 3 Ml Vial) 3 ml INH Q6H PRN; Protocol PRN Reason: Shortness Of Breath Or Wheezin Stop: 03/22/22 06:54 Albuterol (Albuterol Hfa 8 Gm Inhaler (Combivent Respimat P&T Subs)) 1 puffs INH BIDR [facility] Stop: 03/22/22 18:59 Last Admin: 03/02/22 18:58 Dose: 1 puffs Amlodipine Besylate (Amlodipine Besylate 5 Mg Tab) 10 mg PO QAM [facility] Stop: 03/26/22 10:29 Last Admin: 03/02/22 08:31 Dose: 10 mg Folic Acid (Folic Acid 1 Mg Tab) 1 mg PO QAM [facility] Stop: 03/22/22 08:59 Last Admin: 03/02/22 08:32 Dose: 1 mg Furosemide (Furosemide 40 Mg Tab) 40 mg PO BID17 [facility] Stop: 04/01/22 16:59 Last Admin: 03/02/22 16:40 Dose: 40 mg Guaifenesin (Guaifenesin 600 Mg Tabcr) 600 mg PO BID [facility] Stop: 03/22/22 08:59 Last Admin: 03/02/22 20:12 Dose: 600 mg Ipratropium [place] (Ipratropium Hfa Inhaler (Combivent Respimat P&T Subs)) 1 puffs INH BIDR [facility] Stop: 03/22/22 18:59 Last Admin: 03/02/22 18:58 Dose: 1 puffs Labetalol HCl (Labetalol Hcl Iv 5 Mg/Ml 20ml) 10 mg IV Q4H PRN PRN Reason: Hypertension Stop: 03/21/22 19:41 Last Admin: 02/20/22 03:51 Dose: 10 mg Levothyroxine Sodium (Levothyroxine Sodium 50 Mcg Tablet) 50 mcg PO DAILYBB [facility] Stop: 03/22/22 07:14 Last Admin: 03/03/22 06:46 Dose: 50 mcg Lisinopril (Lisinopril 40 Mg Tab) 40 mg PO QAM [facility] Stop: 03/25/22 08:59 Last Admin: 03/02/22 08:32 Dose: 40 mg Metoprolol Tartrate (Metoprolol Tartrate 25 Mg Tab) 12.5 mg PO BID [facility] Stop: 03/22/22 08:59 Last Admin: 03/02/22 20:13 Dose: 12.5 mg Nystatin (Nystatin Cr 15 Gm Tube) 1 appln EXT BID [facility] Stop: 03/29/22 09:14 Last Admin: 03/02/22 20:14 Dose: 1 appln Nystatin (Nystatin Susp 500,000 U/5 Ml Udc) 5 ml PO QID [facility] Stop: 03/29/22 12:59 Last Admin: 03/02/22 20:13 Dose: 5 ml Pravastatin Sodium (Pravastatin Sod 40 Mg Tab) 40 mg PO HS [facility] Stop: 03/22/22 20:59 Last Admin: 03/02/22 20:13 Dose: 40 mg Quetiapine Fumarate (Quetiapine Fumarate 25 Mg Tablet) 50 mg PO BID [facility] Stop: 03/22/22 08:59 Last Admin: 03/02/22 20:14 Dose: 50 mg Venlafaxine HCl (Venlafaxine Hcl Xr 75 Mg Capxr) 75 mg PO QAM [facility] Stop: 03/22/22 08:59 Last Admin: 03/02/22 08:34 Dose: 75 mg Venlafaxine HCl (Venlafaxine Hcl Xr 150 Mg Capxr) 150 mg PO QAM [facility] Stop: 03/22/22 08:59 Last Admin: 03/02/22 08:34 Dose: 150 mg Warfarin Sodium (Warfarin Sod 5 Mg Tab) 5 mg PO DAILY@1600 [facility] Stop: 03/28/22 15:59 Last Admin: 03/02/22 16:39 Dose: 5 mg (1) Dyspnea Dyspnea type: shortness of breath Qualified Code(s): R06.02 - Shortness of breath
[2022-03-03] MEDS: Albuterol HFA 8 GM Inhaler (Combivent Respimat P&T Subs) INH SCH ×2 (07:37→19:23)
[2022-03-03] MEDS: Ipratropium HFA Inhaler (Combivent Respimat P&T Subs) INH SCH ×2 (07:37→19:22)
[2022-03-03] MEDS: METOPROLOL TARTRATE 25 MG TAB PO SCH ×2 (07:58→21:18)
[2022-03-03] MEDS: QUEtiapine FUMARATE 25 MG TABLET PO SCH ×2 (07:59→21:17)
[2022-03-03] MEDS: NYSTATIN SUSP 500,000 U/5 ML UDC PO SCH ×4 (08:00→21:18)
[2022-03-03] MEDS: VENLAFAXINE HCL XR 75 MG CAPXR PO SCH (08:01)
[2022-03-03] MEDS: guaiFENesin 600 MG TABCR PO SCH ×2 (08:01→21:18)
[2022-03-03] MEDS: amLODIPine BESYLATE 5 MG TAB PO SCH (08:02)
[2022-03-03] MEDS: FUROSEMIDE 40 MG TAB PO SCH ×2 (08:03→17:57)
[2022-03-03] MEDS: FOLIC ACID 1 MG TAB PO SCH (08:03)
[2022-03-03] MEDS: lisinopril 40 MG TAB PO SCH (08:04)
[2022-03-03] MEDS: VENLAFAXINE HCL XR 150 MG CAPXR PO SCH (08:05)
[2022-03-03] MEDS: NYSTATIN CR 15 GM TUBE EXT SCH ×2 (08:05→21:19)
[2022-03-03] MEDS ORDERED: FUROSEMIDE 40 MG TAB PO SCH (09:00)
[2022-03-03] MEDS ORDERED: POTASSIUM CHLORIDE PWD 20 MEQ PACK PO ONE (12:48)
[2022-03-03] MEDS ORDERED: FUROSEMIDE 40 MG/4 ML VIAL IV ONE (13:58)
[2022-03-03] MEDS ORDERED: POTASSIUM CHLORIDE / WTR 10 MEQ/100 ML PLCT IV SCH (14:00)
--- NOTE | 2022-03-03 14:04 | Nephrology Progress Note ---
Date of Service March 03, 2022 Assessment & Plan Admission and Anticipated Discharge Date Admission Date: February 19, 2022 Subjective Assessment & Plan (1) Metabolic alkalosis with respiratory acidosis: Plan: pt on relatively small diuretic dose prior to admission (lasix 20 mg bid) and since arrival but with already elevated baseline bicarbonate and with exaggerated response to relatively minimal doses of IV lasix at that time. Notably K is wnl, despite no supplementation at all after daily lasix doses above. no losses of upper GI secretions so this almost has to be diuretic driven w/ some underlying propensity to metabolic alkalosis. severe metabolic alkalosis cause unclear is limiting her needed diuresis. atypically w/ high normal potassium. Repeat CXR to reassess Fluid status/Pulm edema--persistent. But now more symptoms so Lasix 80 iv x 1. can give more She can have slightly high Bicarb level going forward her overall condition and the cardiology note reviewed and maybe Palliative is the better option. Discussed with hospitalist who is trying to talk with family. Subjective Feels very tired and also more SOB and needing more o2.hard to get history. Review of Systems Review of Systems: All systems reviewed & are unremarkable except as noted in Subjective Physical Exam Constitutional: resp distress++ Eyes: EOM intact bilaterally ENMT: Ears: no external ear abnormality Nose: no external nose abnormality Mouth: + dry oral mucous membranes Neck: no nuchal rigidity Respiratory: + labored breathing (karen w/ exam maneuve rs), able to speak in complete sentences and + tachypneic Auscultation: + diminished lung sounds and + crackles Cardiovascular: Rate/Rhythm: regular rate and regular rhythm Heart Sounds: + murmur Extremities: + edema (trace) Gastrointestinal (Abdomen): Inspection/Auscultation: normal bowel sounds Percussion/Palpation: abdomen soft; abdomen nontender Musculoskeletal: Extremities: strength 5/5 throughout Skin: no rashes, warm and dry Psychiatric: Orientation: oriented x 3 Speech: normal rate/rhythm/volume of speech Affect: euthymic affect Results & Data ([facility]) Vital Signs (Past 12 Hours) Vital Signs Temp Pulse Resp BP Pulse Ox O2 Del Method O2 Flow Rate 03/03/22 11:39 36.5 C 61 20 110/53 L 91 Oxymask 2.0 03/03/22 07:35 Oxymask 6 03/03/22 08:17 36.7 C 80 24 146/58 H 03/03/22 07:38 81 18 97 Oxymask 6 03/03/22 03:13 36.7 C 65 20 125/58 L 93 Oxymask 6
--- NOTE | 2022-03-03 15:07 | XRay Report ---
SINGLE VIEW CHEST CLINICAL HISTORY: Hypoxia. FINDINGS: An AP, portable, semierect chest radiograph is compared to study dated 03/01/2022. The examin ation is degraded by portable technique and apical lordotic positioning. The heart is enlarged noting atherosclerotic calcification of the thoracic aorta. There is pulmonary vascular congestion and inte rstitial edema. There are layering pleural effusions with dependent consolidation. No pneumothorax is seen. The skeletal structures are osteopenic. The bony thorax is grossly intact. IMPRESSION: 1. Cardiomegaly with evidence of congestive failure and pulmonary edema. 2. Layering pleural effusions with dependent consolidation. ACT 112: Negative or not required by law. Electronically signed by: Desmond Maldonado M.D. 03/03/2022 3:06 PM
[2022-03-03] MEDS: POLYETHYLENE (MIRALAX) 17 GM PACK PO SCH (17:55)
[2022-03-03] MEDS: DOCUSATE SODIUM 100 MG CAP PO SCH ×2 (17:55→21:18)
[2022-03-03] MEDS: PRAVASTATIN SOD 40 MG TAB PO SCH (21:19)
[2022-03-03] MEDS: acetaZOLAMIDE 250 MG TAB PO SCH (21:19)
[2022-03-04] MEDS: LEVOTHYROXINE SODIUM 50 MCG TABLET PO SCH (06:00)
[2022-03-04 06:51] LABS: BUN Creatinine Ratio 26.5 (10-20); Calcium 9.1 mg/dl (8.5-10.1); Creatinine Clr Calc Pharmacy 34.4 ml/min; Est GFR (Non-African American) 35.4 ml/min; Magnesium 2.3 mg/dl (1.7-2.4); Phosphorus 4.5 mg/dl (2.5-4.9); Potassium 4.3 mmol/L (3.5-5.1)
[2022-03-04 06:55] LABS: INR 3.8 (0.9-1.1); Prothrombin Time 38.1 Seconds (9.0-12.0)
[2022-03-04] MEDS ORDERED: FUROSEMIDE 40 MG/4 ML VIAL IV ONE ×4 (07:03→10:03)
[2022-03-04] MEDS: Albuterol HFA 8 GM Inhaler (Combivent Respimat P&T Subs) INH SCH (07:05)
[2022-03-04] MEDS: Ipratropium HFA Inhaler (Combivent Respimat P&T Subs) INH SCH (07:05)
--- NOTE | 2022-03-04 07:09 | Hospitalist Progress Note ---
Date of Service March 04, 2022 Assessment & Plan (1) Hypoxemia: (2) Dyspnea: (3) Elevated troponin I level: (4) CHF (congestive heart failure): Plan: Acute decompensated diastolic heart failure likely due to her aortic stenosis. Patient presents with shortness of breath, hypoxia Since she had COVID in June, patient has been using supplemental oxygen In ED she is on 4 L, which seems to be somewhat increased Chest x-ray significant for pulmonary vascular congestion BNP elevated at 1754 Troponin elevated at 399, then 315 Patient denies any chest pain Patient likely presents with an acute CHF Received IV Lasix, IV Decadron, IV antibiotics and aspirin in the ED procalcitonin negative, for now we will hold antibiotic Blood culture no growth Obtained echocardiogram Normal LV chamber size with severe concentric LVH. Normal LV systolic function, EF 60 to 65%. No segmental LV wall motion abnormalities are noted. Grade 3 diastolic dysfunction consistent with restrictive physiology. RV systolic fun ction is reduced as assessed by tricuspid annular plane systolic excursion TAPSE less than 1.6 cm. Severe calcific aortic valve stenosis. VMI 5.8 m/s and PGM of 84 mmHg. Moderate aortic regurg. Calcified mitral apparatus causing mitral stenosis. There is moderate mitral regurg. There is mild mitral stenosis. Severe LA enlargement. Nephrology following to guide on diuretic management - given metabolic alkalosis Received acetazolamide, C02 down to 40 >> cont to dose 250 mg bid IV - stopped now Nephrology is managing the diruretic lasix 60 mg IV BID - switched to PO 40 bid -> 8/3 now w/ incr. O2 requirement - discussed w/ nephro give lasix 80 iv Repeat CXR - shows pulm, vasc. congestion Continue monitor creatinine 03/04 -this morning patient received additional 80 of IV Lasix. She however became more hypoxic, and struggling with breathing. Gave another 40 IV Lasix, and discussed morphine with the patient. Patient agreeable, gave 1 mg of morphine, and she appeared more comfortable after that. Notified her granddaughter Lydia, who I discussed her worsening clinical status already yesterday. She was able to notify the family to come see the patient. Palliative medicine consult pending, message sent to Dr. Belcher as well. Cardiology consulted Review of echocardiogram now shows that she has critical aortic stenosis with a maximum velocity of 5.8 m/s and a mean pressure gradient of 84 mmHg, both of which are remarkably abnormal She does present in acute decompensated diastolic heart failure likely due to her aortic stenosis. Will need to discuss patient treatment preference ongoing with TAVR evaluation versus hospice care ultimately Discussed with grand daughter about TAVR evaluation and hospice - she said that she would let her to make the decision Pt said that she would like to get eval for the TAVR procedure because she would like to do it Discussed with cardiology that will arrange for outpatient follow for TAVR eval once patient is stable however given pt's dementia - not a good candidate for the procedure Also pt not improving much - cont. to use 5L of suppl. O2 Cardiology also recommends palliative med. consultation - ordered Continue to monitor on telemetry Elevated troponin Type 2 RI due to acute decompensated diastolic heart failure likely due to her aortic stenosis Troponin elevated at 399, then 315 Cardiology on board Continue statin, metoprolol and coumadin Currently denies any chest pain Metabolic Alkalosis C02 > 45; 42-45 from 02/20-02/22; was 36 on presentation Possible related to diuretic Nephrology following Continued acetazolamide - stopped and resumed Urine for urinary free cortisone and urinary cortisol, Renin/aldosterone ordered by nephrology Hypertension Patient found to be quite hypertensive in the ED Received IV Lasix, continue to closely monitor blood pressure Continue Lisinopril 40mg BP stable History of A. fib on warfarin INR 2 today Continue coumadin 5 mg continue to monitor INR Continue Toprol Rate control CKD stage III Continue to monitor creatinine/renal function DVT ppx: On warfarin CODE STATUS DNR/DNI Admission and Anticipated Discharge Date Admission Date: February 19, 2022 Subjective Pt was seen and examined for follow of hypoxia, shortness of breath, CHF exacerbation Yesterday patient was on 13 liters of oxygen mask I contacted granddaughter Lydia, and updated her on worsening clinical status. I also asked her to notify family/friends to come over to see the pt. Palliative medicine consulted, pending evaluation Family able to visit yesterday. This morning however patient is struggling more, desaturating, receiving breathing treatments. Received Lasix IV 80 this morning, will give 40 IV more now. I also talked to the patient about morphine, and she is agreeable. Gave 1 mg of morphine now. Patient seems to appear more comfortable now I called Lydia again this morning and updated her about worsening status. She plans to come in as soon as she can. Message sent to Dr. Belcher (palliative) as well. Review of Systems Review of Systems: All systems reviewed & are unremarkable except as noted in Subjective Physical Exam Physical Exam: Constitutional:J obese F , +ill aria earing, 11L on oxy mask, in acute dis tress Eyes: PERRL, EOMI, conju nctivae normal, an icteric sclerae ENMT: external ear and n ose normal, oropha rynx normal Neck: + thick neck Respiratory: diminished BS, no wheezing, +accesso ry muscle use Cardiovascular:J RRR, +syst. murmur , minimal LE edema Chest (Breasts): Chest: normal insp ection of chest Gastrointestinal ( Abdomen): normal bowel sound s, soft, nontender Musculoskeletal: extremities motor strength 5/5 (mini mal LE edema b/l) Skin: no rashes, warm an d dry Neurologic: PERRL, EOMI, no fa ce palsy, no dysar thria, moves extre mities Psychiatric: A+Ox3, euthymic af fect Lymphatic: + lymphedema (mil d LE edema b/l) Results & Data Results & Data ([facility]) Vital Signs (Past 12 Hours) Vital Signs Temp Pulse Resp BP Pulse Ox O2 Del Method O2 Flow Rate 03/04/22 03:04 36.5 C 69 18 127/56 L 92 Oxymask 10 03/03/22 20:00 Oxymask 13 03/03/22 23:12 36.5 C 61 18 105/52 L 92 Oxymask 13 03/03/22 19:24 71 23 92 Oxymask 13 03/03/22 19:13 36.8 C 76 17 146/66 H 92 Oxymask 13 Laboratory Results 03/04/22 03/04/22 03/03/22 Range/Units 05:39 05:39 06:27 PT 38.1 H 35.7 H (9.0-12.0) Seconds INR 3.8 H 3.6 H (0.9-1.1) Sodium 138 (136-145) mmol/L Potassium 4.3 D (3.5-5.1) mmol/L Chloride 98 (98-107) mmol/L Carbon Dioxide 34 H (21-32) mmol/L Anion Gap 6 (3-11) BUN 36 H (6-23) mg/dl Creatinine 1.36 H (0.6-1.2) mg/dl Est Cr Clr Drug Dosing 34.4 ml/min Est GFR ( Amer) 41.0 ml/min Est GFR (Non-Af Amer) 35.4 ml/min BUN/Creatinine Ratio 26.5 H (10-20) Glucose 89 (70-99(Fasting)) mg/dl Calcium 9.1 (8.5-10.1) mg/dl Phosphorus 4.5 (2.5-4.9) mg/dl Magnesium 2.3 (1.7-2.4) mg/dl 03/03/22 Range/Units 06:27 PT (9.0-12.0) Seconds INR (0.9-1.1) Sodium 138 (136-145) mmol/L Potassium 3.5 (3.5-5.1) mmol/L Chloride 97 L (98-107) mmol/L Carbon Dioxide 36 H (21-32) mmol/L Anion Gap 5 (3-11) BUN 34 H (6-23) mg/dl Creatinine 1.37 H (0.6-1.2) mg/dl Est Cr Clr Drug Dosing 34.0 ml/min Est GFR ( Amer) 40.7 ml/min Est GFR (Non-Af Amer) 35.1 ml/min BUN/Creatinine Ratio 24.8 H (10-20) Glucose 96 (70-99(Fasting)) mg/dl Calcium 8.8 (8.5-10.1) mg/dl Phosphorus 4.3 (2.5-4.9) mg/dl Magnesium 2.2 (1.7-2.4) mg/dl Medications Administered Current Inpatient Medications Acetaminophen (Acetaminophen 325 Mg Tab) 650 mg PO Q4H PRN PRN Reason: Pain or Fever Stop: 03/21/22 15:43 Acetazolamide (Acetazolamide 250 Mg Tab) 250 mg PO BID [facility] Stop: 04/02/22 20:59 Last Admin: 03/03/22 21:19 Dose: 250 mg Albuterol (Albut/Ipratrop 3mg/0.5mg Neb 3 Ml Vial) 3 ml INH Q6H PRN; Protocol PRN Reason: Shortness Of Breath Or Wheezin Stop: 03/22/22 06:54 Albuterol (Albuterol Hfa 8 Gm Inhaler (Combivent Respimat P&T Subs)) 1 puffs INH BIDR [facility] Stop: 03/22/22 18:59 Last Admin: 03/04/22 07:05 Dose: 1 puffs Amlodipine Besylate (Amlodipine Besylate 5 Mg Tab) 10 mg PO QAM [facility] Stop: 03/26/22 10:29 Last Admin: 03/03/22 08:02 Dose: 10 mg Docusate Sodium (Docusate Sodium 100 Mg Cap) 100 mg PO BID [facility] Stop: 04/02/22 13:49 Last Admin: 03/03/22 21:18 Dose: 100 mg Folic Acid (Folic Acid 1 Mg Tab) 1 mg PO QAM [facility] Stop: 03/22/22 08:59 Last Admin: 03/03/22 08:03 Dose: 1 mg Furosemide (Furosemide 40 Mg Tab) 40 mg PO BID17 [facility] Stop: 04/01/22 16:59 Last Admin: 03/03/22 17:57 Dose: 40 mg Furosemide (Furosemide 40 Mg/4 Ml Vial) 80 mg IV ONE ONE Stop: 03/04/22 07:04 Guaifenesin (Guaifenesin 600 Mg Tabcr) 600 mg PO BID [facility] Stop: 03/22/22 08:59 Last Admin: 03/03/22 21:18 Dose: 600 mg Ipratropium [place] (Ipratropium Hfa Inhaler (Combivent Respimat P&T Subs)) 1 puffs INH BIDR [facility] Stop: 03/22/22 18:59 Last Admin: 03/04/22 07:05 Dose: 1 puffs Labetalol HCl (Labetalol Hcl Iv 5 Mg/Ml 20ml) 10 mg IV Q4H PRN PRN Reason: Hypertension Stop: 03/21/22 19:41 Last Admin: 02/20/22 03:51 Dose: 10 mg Levothyroxine Sodium (Levothyroxine Sodium 50 Mcg Tablet) 50 mcg PO DAILYBB [facility] Stop: 03/22/22 07:14 Last Admin: 03/04/22 06:00 Dose: 50 mcg Lisinopril (Lisinopril 40 Mg Tab) 40 mg PO QAM [facility] Stop: 03/25/22 08:59 Last Admin: 03/03/22 08:04 Dose: 40 mg Metoprolol Tartrate (Metoprolol Tartrate 25 Mg Tab) 12.5 mg PO BID [facility] Stop: 03/22/22 08:59 Last Admin: 03/03/22 21:18 Dose: 12.5 mg Nystatin (Nystatin Cr 15 Gm Tube) 1 appln EXT BID [facility] Stop: 03/29/22 09:14 Last Admin: 03/03/22 21:19 Dose: 1 appln Nystatin (Nystatin Susp 500,000 U/5 Ml Udc) 5 ml PO QID [facility] Stop: 03/29/22 12:59 Last Admin: 03/03/22 21:18 Dose: 5 ml Polyethylene Glycol (Polyethylene (Miralax) 17 Gm Pack) 17 gm PO DAILY [facility] Stop: 04/02/22 13:59 Last Admin: 03/03/22 17:55 Dose: 17 gm Pravastatin Sodium (Pravastatin Sod 40 Mg Tab) 40 mg PO HS [facility] Stop: 03/22/22 20:59 Last Admin: 03/03/22 21:19 Dose: Not Given Quetiapine Fumarate (Quetiapine Fumarate 25 Mg Tablet) 50 mg PO BID [facility] Stop: 03/22/22 08:59 Last Admin: 03/03/22 21:17 Dose: 50 mg Venlafaxine HCl (Venlafaxine Hcl Xr 75 Mg Capxr) 75 mg PO QAM [facility] Stop: 03/22/22 08:59 Last Admin: 03/03/22 08:01 Dose: 75 mg Venlafaxine HCl (Venlafaxine Hcl Xr 150 Mg Capxr) 150 mg PO QAM [facility] Stop: 03/22/22 08:59 Last Admin: 03/03/22 08:05 Dose: 150 mg Warfarin Sodium (Warfarin Sod 5 Mg Tab) 5 mg PO DAILY@1600 [facility] Stop: 03/28/22 15:59 Last Admin: 03/02/22 16:39 Dose: 5 mg (1) Dyspnea Dyspnea type: shortness of breath Qualified Code(s): R06.02 - Shortness of breath
[2022-03-04] MEDS: acetaZOLAMIDE 250 MG TAB PO SCH ×2 (09:18→09:42)
[2022-03-04] MEDS: DOCUSATE SODIUM 100 MG CAP PO SCH ×3 (09:19→21:17)
[2022-03-04] MEDS: METOPROLOL TARTRATE 25 MG TAB PO SCH ×2 (09:19→10:08)
[2022-03-04] MEDS: NYSTATIN SUSP 500,000 U/5 ML UDC PO SCH ×5 (09:19→21:17)
[2022-03-04] MEDS: FOLIC ACID 1 MG TAB PO SCH ×2 (09:19→10:07)
[2022-03-04] MEDS: QUEtiapine FUMARATE 25 MG TABLET PO SCH ×2 (09:19→10:08)
[2022-03-04] MEDS: guaiFENesin 600 MG TABCR PO SCH ×3 (09:19→21:17)
[2022-03-04] MEDS: NYSTATIN CR 15 GM TUBE EXT SCH ×2 (09:20→21:34)
[2022-03-04] MEDS: amLODIPine BESYLATE 5 MG TAB PO SCH ×2 (09:20→09:42)
[2022-03-04] MEDS: VENLAFAXINE HCL XR 75 MG CAPXR PO SCH ×2 (09:20→10:08)
[2022-03-04] MEDS: FUROSEMIDE 40 MG TAB PO SCH ×2 (09:20→09:42)
[2022-03-04] MEDS: lisinopril 40 MG TAB PO SCH ×2 (09:20→10:07)
[2022-03-04] MEDS: POLYETHYLENE (MIRALAX) 17 GM PACK PO SCH ×2 (09:26→10:08)
[2022-03-04] MEDS: ALBUT/IPRATROP 3MG/0.5MG NEB 3 ML VIAL INH PRN ×2 (09:42→12:33)
[2022-03-04] MEDS ORDERED: MoRPHine SULFATE 2 MG/ML CARP ONE (09:58)
[2022-03-04] MEDS ORDERED: MoRPHine SULFATE 2 MG/ML CARP IV STA (10:02)
[2022-03-04] MEDS: VENLAFAXINE HCL XR 150 MG CAPXR PO SCH (10:08)
--- NOTE | 2022-03-04 11:01 | Nephrology Progress Note ---
Date of Service March 04, 2022 Assessment & Plan Admission and Anticipated Discharge Date Admission Date: February 19, 2022 Subjective Subjective Assessment & Plan (1) Metabolic alkalosis with respiratory acidosis: Plan: pt on relatively small diuretic dose prior to admission (lasix 20 mg bid) and since arrival but with already elevated baseline bicarbonate and with ex aggerated response to relatively minimal doses of IV lasix at that time. Notably K is wnl, despite no supplementation at all after daily lasix doses above. no losses of upper GI secretions so this almost has to be diuretic driven w/ some underlying propensity to metabolic alkalosis. severe metabolic alkalosis cause unclear is limiting her needed diuresis. atypically w/ high normal potassium. Repeat CXR to reassess Fluid status/Pulm edema--persistent. But now more symptoms so Lasix 80 iv x 1 given earlier. can give more her overall condition and the cardiology note reviewed and maybe Palliative is the better option. Spoke with Granddaughter--patient is very sick and in lot of distress. Subjective Much more SOB and needing more o2. Review of Systems Review of Systems: All systems reviewed & are unremarkable except as noted in Subjective Physical Exam Constitutional: resp distress++ Eyes: EOM intact bilaterally ENMT: Ears: no external ear abnormality Nose: no external nose abnormality Mouth: + dry oral mucous membranes Neck: no nuchal rigidity Respiratory: + labored breathing (karen w/ exam maneuve rs), able to speak in complete sentences and + tachypneic Auscultation: + diminished lung sounds and + crackles Cardiovascular: Rate/Rhythm: regular rate and regular rhythm Heart Sounds: + murmur Extremities: + edema (trace) Gastrointestinal (Abdomen): Inspection/Auscultation: normal bowel sounds Percussion/Palpation: abdomen soft; abdomen nontender Musculoskeletal: Extremities: strength 5/5 throughout Skin: no rashes, warm and dry Psychiatric: Orientation: oriented x 3 Speech: normal rate/rhythm/volume of speech Affect: euthymic affect Results & Data ([facility]) Vital Signs (Past 12 Hours) Vital Signs Temp Pulse Pulse Resp BP Pulse Ox O2 Del Method 03/04/22 09:43 101 H 22 88 L Oxymask 03/04/22 07:09 36.7 C 81 18 130/57 L 91 03/04/22 07:07 79 19 92 Oxymask 03/04/22 03:04 36.5 C 69 18 127/56 L 92 Oxymask 03/03/22 23:12 36.5 C 61 18 105/52 L 92 Oxymask O2 Flow Rate 03/04/22 09:43 11 03/04/22 07:09 11 03/04/22 07:07 11 03/04/22 03:04 10 03/03/22 23:12 13
[2022-03-04] MEDS ORDERED: ALBUT/IPRATROP 3MG/0.5MG NEB 3 ML VIAL INH PRN (12:54)
--- NOTE | 2022-03-04 13:34 | Palliative Care Consultation ---
Date of Consultation March 04, 2022 Assessment & Plan (1) Dyspnea: with acute hypoxic respiratory failure in the setting of critical and decompensated diastolic heart failure Order placed for IV morphine prn. Discussed with RN. Dyspnea type: shortness of breath Qualified Code(s): R06.02 - Shortness of breath (2) Palliative care encounter: I talked with Rae's daughter as well as her granddaughter, Lydia, at bedside. They are in agreement that Rae has lived a good life and would not want to have any further procedures or interventions to prolong her life. Their wish is that she have symptom relief for pain and shortness of breath. We discussed shift of focus for care to symptom management and comfort. Med list reviewed and adjusted with focus on symptom relief. She received 4mg of IV morphine with significant relief of her respiratory distress. She does have some brief apnea. I spoke with Lydia about what to expect. We also discussed down titration of O2 for her comfort rather than maintaining sat and she is agreeable. Will monitor with IV morphine. She may need infusion if she requires frequent prn dosing. History of Present Illness Reason for Consultation: goals of care Requesting Physician: Dr. Mccarthy Attending Physician: Maurice Mccarthy MD History of Present Illness 87 yo lady who was admitted with shortness of breath and hypoxia. She has critical aortic stenosis with Class IV diastolic heart failure as well as afib. She also has baseline dementia. Chest xray shows persistent bilateral pulmonary edema and she has developed metabolic acidosis which is impacting her diuretic therapy. She has had a positive fluid balance the last few days. She has also had progressive hypoxia with increased O 2 requirement and is currently on 15L via oxymask with sat of 88%. There had initially been discussion of SUZANNE and her granddaugher, Lydia, who is her POA, had hoped that she would be able to participate in this decision. We have been consulted to assist with goals of care discussion. Mrs. Barker is lethargic but arouses and answers questions with nodding or shaking her head. She is visibly short of breath with accessory muscle use and shoulder rise with inspiration. Allergies Allergy/AdvReac Type Severity Reaction Status Date / Time levofloxacin [From Levaquin] Allergy Intermediate drug Verified 02/19/22 16:40 eruption BLE atorvastatin [From Lipitor] Allergy Unknown Unknown Unverified 08/28/18 12:43 doxycycline Allergy Unknown Unknown Unverified 08/28/18 12:43 penicillin G Allergy Unknown Unknown Unverified 08/28/18 12:43 Sulfa (Sulfonamide Allergy Unknown Unknown Unverified 08/28/18 12:43 Antibiotics) Home Medications Medication Instructions Recorded Confirmed Type cholecalciferol (vitamin D3) 125 5,000 unit PO QAM 08/28/18 02/19/22 History mcg (5,000 unit) tablet (Vitamin D3) folic acid 1 mg tablet 1 mg PO QAM 08/28/18 02/19/22 History furosemide 20 mg tablet 20 mg PO BID 08/28/18 02/19/22 History levothyroxine 50 mcg tablet 50 mcg PO QAM 08/28/18 02/19/22 History lisinopril 10 mg tablet 5 mg PO QAM 08/28/18 02/19/22 History pravastatin 40 mg tablet 40 mg PO HS 08/28/18 02/19/22 History quetiapine 50 mg tablet 50 mg PO BID 08/28/18 02/19/22 History venlafaxine 150 mg 150 mg PO QAM 08/28/18 02/19/22 History capsule,extended release 24 hr venlafaxine 75 mg capsule,extended 75 mg PO QAM 08/28/18 02/19/22 History release 24 hr guaifenesin 600 mg tablet, 600 mg PO BID 07/22/20 02/19/22 History extended release 12 hr (Mucinex) acetaminophen 325 mg tablet 650 mg PO Q4 PRN Pain 02/19/22 02/19/22 History biotin 10,000 mcg disintegrating 10,000 mcg PO DAILY 02/19/22 02/19/22 History tablet dextromethorphan-guaifenesin 10 5 ml PO Q4H PRN Cough 02/19/22 02/19/22 History mg-100 mg/5 mL oral syrup (Tussin DM) ipratropium 0.5 mg-albuterol 3 mg 3 ml inhalation Q6H PRN Shortness 02/19/22 02/19/22 History (2.5 mg base)/3 mL nebulization Of Breath Or Wheezing soln ipratropium 20 mcg-albuterol 100 1 puff inhalation .EVERY 2 HOURS 02/19/22 02/19/22 History mcg/actuation mist for inhalation PRN Shortness Of Breath (Combivent Respimat) ipratropium 20 mcg-albuterol 100 1 puff inhalation BID 02/19/22 02/19/22 History mcg/actuation mist for inhalation (Combivent Respimat) menthol 16 % topical liquid (Icy 1 ea topical BID PRN knee pain 02/19/22 02/19/22 History Hot No Mess) metoprolol tartrate 25 mg tablet 12.5 mg PO BID 02/19/22 02/19/22 History warfarin 4 mg tablet 4 mg PO QPM 02/19/22 02/19/22 History Patient History Medical History Asthma Atrial fibrillation CKD (chronic kidney disease) stage 3, GFR 30-59 ml/min Depression with anxiety Elevated troponin HLD (hyperlipidemia) HTN (hypertension) Surgical History History of appendectomy History of foot surgery R foot Osteotomy History of partial hysterectomy Family History Sister Breast cancer Mother Hypertension Social History Smoking Status: Former smoker Second Hand Exposure: No; Hx Alcohol Use: No Hx Substance Use: No Preferred Language: Lao Communication Ability: Effective [place] Carpenter Required: No Beliefs That Will Affect Care: None marital status: / Current Living Situation: Snf Current Living Situation Comment: [facility] Other Information That Helps Us Care for You: No Feels Safe at Home: Yes Safety Concerns: Feels Safe At This Time Assistive Devices: Oxygen - Continuous and Walker Review of Systems Review of Systems: ESAS Pain 2/3 Dyspnea 3/3 Anxiety 2/3 Nausea 0/3 Fatigue 3/3 Drowsiness 2/3 PPS 30% Physical Exam Constitutional: + ill appearing; + uncomfortable ENMT: Mouth: + dry oral mucous membranes Respiratory: + labored breathing, + uses accessory muscles and + tachypneic no audible tracheal secretions Cardiovascular: Rate/Rhythm: + irregularly irregular no mottling Gastrointestinal (Abdomen): nontender Skin: diaphoretic Neurologic: lethargic, responds to questions Genitourinary: minimal urine output Results & Data ([facility]) Vital Signs (Past 12 Hours) Vital Signs Temp Pulse Pulse Resp BP Pulse Ox O2 Del Method 03/04/22 12:36 93 H 24 88 L Oxymask 03/04/22 11:44 98.4 F 93 H 20 129/68 91 Oxymask 03/04/22 09:43 101 H 22 88 L Oxymask 03/04/22 07:09 98.1 F 81 18 130/57 L 91 03/04/22 07:07 79 19 92 Oxymask 03/04/22 03:04 97.7 F 69 18 127/56 L 92 Oxymask O2 Flow Rate 03/04/22 12:36 15 03/04/22 11:44 15.0 03/04/22 09:43 11 03/04/22 07:09 11 03/04/22 07:07 11 03/04/22 03:04 10 PG Care Time/CCT Total # of Minutes Spent Total Time Spent: 63 Total Time Spent with Patient: Total time spent is greater than 50% in coordination of care (as documented) at patient's floor/unit and/or counseling patient: symptom management, goals of care, family education and support Coding Level of Care Code 94057 Initial Inpt Care Lvl 2 Diagnoses Dyspnea R06.02 Dyspnea type: shortness of breath Palliative care encounter Z51.5
[2022-03-04] MEDS ORDERED: GLYCOPYRROLATE 0.2 MG/ML VIAL IV PRN (14:14)
[2022-03-04] MEDS ORDERED: LORazepam 0.5 MG in SYRINGE 0.25 ML IV PRN (14:14)
[2022-03-04] MEDS ORDERED: ONDANSETRON 4 MG OD TAB SL PRN (14:14)
[2022-03-04] MEDS ORDERED: LORazepam 0.5 MG TAB PO PRN (14:14)
[2022-03-04] MEDS ORDERED: ONDANSETRON INJ 2 MG/ML 2 ML VIAL IV PRN (14:14)
[2022-03-04] MEDS: MoRPHine SULFATE 2 MG/ML CARP IV PRN ×4 (14:20→23:54)
[2022-03-05] MEDS: MoRPHine SULFATE 2 MG/ML CARP IV PRN ×3 (04:00→08:41)
--- NOTE | 2022-03-05 08:13 | Hospitalist Progress Note ---
Date of Service March 05, 2022 Assessment & Plan (1) Hypoxemia: (2) Dyspnea: (3) Elevated troponin I level: (4) CHF (congestive heart failure): Plan: Acute decompensated diastolic heart failure likely due to her aortic stenosis. Patient presents with shortness of breath, hypoxia Since she had COVID in June, patient has been using supplemental oxygen In ED she is on 4 L, which seems to be somewhat increased Chest x-ray significant for pulmonary vascular congestion BNP elevated at 1754 Troponin elevated at 399, then 315 Patient denies any chest pain Patient likely presents with an acute CHF Received IV Lasix, IV Decadron, IV antibiotics and aspirin in the ED procalcitonin negative, for now we will hold antibiotic Blood culture no growth Obtained echocardiogram Normal LV chamber size with severe concentric LVH. Normal LV systolic function, EF 60 to 65%. No segmental LV wall motion abnormalities are noted. Grade 3 diastolic dysfunction consistent with restrictive physiology. RV systolic fu nction is reduced as assessed by tricuspid annular plane systolic excursion TAPSE less than 1.6 cm. Severe calcific aortic valve stenosis. VMI 5.8 m/s and PGM of 84 mmHg. Moderate aortic regurg. Calcified mitral apparatus causing mitral stenosis. There is moderate mitral regurg. There is mild mitral stenosis. Severe LA enlargement. Nephrology following to guide on diuretic management - given metabolic alkalosis Received acetazolamide, C02 down to 40 >> cont to dose 250 mg bid IV - stopped now Nephrology is managing the diruretic lasix 60 mg IV BID - switched to PO 40 bid -> 8/ now w/ incr. O2 requirement - discussed w/ nephro give lasix 80 iv Repeat CXR - shows pulm, vasc. congestion Continue monitor creatinine 03/04 -this morning patient received additional 80 of IV Lasix. She however became more hypoxic, and struggling with breathing. Gave another 40 IV Lasix, and discussed morphine with the patient. Patient agreeable, gave 1 mg of morphine, and she appeared more comfortable after that. Notified her granddaughter Lydia, who I discussed her worsening clinical status already yesterday. She was able to notify the family to come see the patient. Palliative medicine consult pending, message sent to Dr. Belcher as well. 03/05 -patient was made comfort care yesterday. Started on IV morphine. Patient passed peacefully this morning, with her family present. Cardiology consulted Review of echocardiogram now shows that she has critical aortic stenosis with a maximum velocity of 5.8 m/s and a mean pressure gradient of 84 mmHg, both of which are remarkably abnormal She does present in acute decompensated diastolic heart failure likely due to her aortic stenosis. Will need to discuss patient treatment preference ongoing with TAVR evaluation versus hospice care ultimately Discussed with grand daughter about TAVR evaluation and hospice - she said that she would let her to make the decision Pt said that she would like to get eval for the TAVR procedure because she would like to do it Discussed with cardiology that will arrange for outpatient follow for TAVR eval once patient is stable however given pt's dementia - not a good candidate for the procedure Also pt not improving much Cardiology also recommends palliative med. consultation Elevated troponin Type 2 NE due to acute decompensated diastolic heart failure likely due to her aortic stenosis Troponin elevated at 399, then 315 Cardiology following, as above Continued statin, metoprolol and coumadin Metabolic Alkalosis C02 > 45; 42-45 from 02/20-02/22; was 36 on presentation Possible related to diuretic Nephrology following Continued acetazolamide - stopped / resumed Urine for urinary free cortisone and urinary cortisol, Renin/aldosterone ordered by nephrology Hypertension Patient found to be quite hypertensive in the ED Received IV Lasix, continue to closely monitor blood pressure Continue Lisinopril 40mg BP stable History of A. fib on warfarin INR 2 today Continued coumadin 5 mg continued to monitor INR Continued Toprol Rate control CKD stage III Continue to monitor creatinine/renal function DVT ppx: On warfarin CODE STATUS DNR/DNI Admission and Anticipated Discharge Date Admission Date: February 19, 2022 Subjective Pt admitted for hypoxia, shortness of breath, CHF exacerbation Yesterday patient was made comfort care, due to worsening clinical status Patient was seen by palliative medicine and started on IV morphine Patient passed this morning, see note Family present at the bedside Review of Systems Review of Systems: Other (Pt passed this AM) Physical Exam Physical Exam: On my exam, patient does not respond to voice or painful stimuli. There are no breath sounds, no heart sounds, no carotid or radial pulses. Pupils dilated and fixed. Time of March 05, 2022, 9:40 AM. Results & Data Results & Data ([facility]) Vital Signs (Past 12 Hours) Vital Signs O2 Del Method O2 Flow Rate 03/05/22 03:44 Oxymask 9 03/04/22 22:00 Oxymask 9 Medications Administered Current Inpatient Medications Acetaminophen (Acetaminophen 325 Mg Tab) 650 mg PO Q4H PRN PRN Reason: Pain or Fever Stop: 03/21/22 15:43 Docusate Sodium (Docusate Sodium 100 Mg Cap) 100 mg PO BID [facility] Stop: 04/02/22 13:49 Last Admin: 03/04/22 21:17 Dose: Not Given Glycopyrrolate (Glycopyrrolate 0.2 Mg/Ml Vial) 0.2 mg IV Q4H PRN PRN Reason: Secretions or Pulm Congestion Stop: 04/03/22 14:13 Last Admin: 03/04/22 23:51 Dose: 0.2 mg Guaifenesin (Guaifenesin 600 Mg Tabcr) 600 mg PO BID [facility] Stop: 03/22/22 08:59 Last Admin: 03/04/22 21:17 Dose: Not Given Lorazepam 0.5 mg/ Syringe 0.5 mls @ 2 mls/min IV Q4H PRN PRN Reason: Anxiety/Agitation Stop: 04/03/22 14:13 Lorazepam (Lorazepam 0.5 Mg Tab) 0.5 mg PO Q4H PRN PRN Reason: Anxiety/Agitation Stop: 04/03/22 14:13 Morphine Sulfate (Morphine Sulfate 2 Mg/Ml Carp) 4 mg IV Q30M PRN PRN Reason: Pain or dyspnea Stop: 03/18/22 14:09 Last Admin: 03/05/22 06:22 Dose: 4 mg Nystatin (Nystatin Cr 15 Gm Tube) 1 appln EXT BID [facility] Stop: 03/29/22 09:14 Last Admin: 03/04/22 21:34 Dose: 1 appln Nystatin (Nystatin Susp 500,000 U/5 Ml Udc) 5 ml PO QID [facility] Stop: 03/29/22 12:59 Last Admin: 03/04/22 21:17 Dose: Not Given Ondansetron HCl (Ondansetron Inj 2 Mg/Ml 2 Ml Vial) 4 mg IV Q4H PRN PRN Reason: Nausea &/or Vomiting Stop: 04/03/22 14:13 Ondansetron HCl (Ondansetron 4 Mg Od Tab) 4 mg SL Q4H PRN PRN Reason: Nausea &/or Vomiting Stop: 04/03/22 14:13 (1) Dyspnea Dyspnea type: shortness of breath Qualified Code(s): R06.02 - Shortness of breath
[2022-03-05] MEDS: guaiFENesin 600 MG TABCR PO SCH (08:49)
[2022-03-05] MEDS: DOCUSATE SODIUM 100 MG CAP PO SCH (08:49)
[2022-03-05] MEDS: NYSTATIN CR 15 GM TUBE EXT SCH (08:50)
[2022-03-05] MEDS: NYSTATIN SUSP 500,000 U/5 ML UDC PO SCH (08:50)
--- NOTE | 2022-03-05 10:04 | Hospitalist Progress Note ---
Date of Service March 05, 2022 Assessment & Plan Admission and Anticipated Discharge Date Admission Date: February 19, 2022 Subjective NOTE Notified by nursing staff that the patient ceased to breathe. On my exam, patient does not respond to voice or painful stimuli. There are no breath sounds, no heart sounds, no carotid or radial pulses. Pupils dilated and fixed. Time of March 05, 2022, 9:40 AM. Results & Data Results & Data ([facility]) Vital Signs (Past 12 Hours) Vital Signs O2 Del Method O2 Flow Rate 03/05/22 03:44 Oxymask 9
--- NOTE | 2022-03-05 10:24 | Discharge Summary ---
Date of Service March 05, 2022 Admission HPI Per Admitting Provider 87-year-old female with history of A. fib on warfarin, hypertension, hyperlipidemia, asthma, depression/anxiety, CKD stage III, who presents with shortness of breath. Reports that she has been more short of breath for the past few weeks. She also noticed some increased swelling in her lower extremities in the past 2 weeks. Denies any chest pain. Denies any fevers, chills, dizziness or palpitations. Reports that since she had COVID in June, she has been on oxygen, and never fully recovered. Denies abdominal pain, nausea vomiting or diarrhea. In ED she was found to have elevated troponin, chest x-ray significant for pulmonary vasc. congestion and small pl. effusions. She received IV Lasix, IV Decadron, also IV antibiotics and aspirin in the ED. Blood cultures obtained. proBNP was initially pending in ED, however now it is found to be elevated. Admission Exam Per Admitting Provider Constitutional:obese F on suppl. O2 via [place] Eyes: PERRL, conjunctivae normal, anicteric sclerae ENMT: external ear and nose normal, oropharynx normal Neck: + thick neck Respiratory: normal respiratory effort, lungs clear to auscultation, minimal crackles, no wheezing Cardiovascular: RRR, +syst. 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 There are no breath sounds, no heart sounds, no carotid or radial pulses. Pupils dilated and fixed. Time of March 05, 2022, 9:40 AM. Discharge Data Allergies Allergy/AdvReac Type Severity Reaction Status Date / Time levofloxacin [From Levaquin] Allergy Intermediate drug Verified 02/19/22 16:40 eruption BLE atorvastatin [From Lipitor] Allergy Unknown Unknown Unverified 08/28/18 12:43 doxycycline Allergy Unknown Unknown Unverified 08/28/18 12:43 penicillin G Allergy Unknown Unknown Unverified 08/28/18 12:43 Sulfa (Sulfonamide Allergy Unknown Unknown Unverified 08/28/18 12:43 Antibiotics) Consultations 02/19/22 15:26 ED Decision to Admit Stat 02/19/22 16:15 Consult Cardiology Routine 02/23/22 08:26 Consult Nephrology Routine 03/02/22 09:37 Consult Palliative Care Routine 03/04/22 14:14 Consult Palliative Care Routine Hospital Course (1) Hypoxemia: (2) Dyspnea: (3) Elevated troponin I level: (4) CHF (congestive heart failure): Acute decompensated diastolic heart failure likely due to her aortic stenosis. Patient presents with shortness of breath, hypoxia Since she had COVID in June, patient has been using supplemental oxygen In ED she is on 4 L, which seems to be somewhat increased Chest x-ray significant for pulmonary vascular congestion BNP elevated at 1754 Troponin elevated at 399, then 315 Patient denies any chest pain Patient likely presents with an acute CHF Received IV Lasix, IV Decadron, IV antibiotics and aspirin in the ED procalcitonin negative, for now we will hold antibiotic Blood culture no growth Obtained echocardiogram Normal LV chamber size with severe concentric LVH. Normal LV systolic function, EF 60 to 65%. No segmental LV wall motion abnormalities are noted. Grade 3 diastolic dysfunction consistent with restrictive physiology. RV systolic function is reduced as assessed by tricuspid annular plane systolic excursion TAPSE less than 1.6 cm. Severe calcific aortic valve stenosis. VMI 5.8 m/s and PGM of 84 mmHg. Moderate aortic regurg. Calcified mitral apparatus causing mitral stenosis. There is moderate mitral regurg. There is mild mitral stenosis. Severe LA enlargement. Nephrology following to guide on diuretic management - given metabolic alkalosis Received acetazolamide, C02 down to 40 >> cont to dose 250 mg bid IV - stopped now Nephrology is managing the diruretic lasix 60 mg IV BID - switched to PO 40 bid -> 8/ now w/ incr. O2 requirement - discussed w/ nephro give lasix 80 iv Repeat CXR - shows pulm, vasc. congestion Continue monitor creatinine 03/04 -this morning patient received additional 80 of IV Lasix. She however became more hypoxic, and struggling with breathing. Gave another 40 IV Lasix, and discussed morphine with the patient. Patient agreeable, gave 1 mg of morphine, and she appeared more comfortable after that. Notified her granddaughter Lydia, who I discussed her worsening clinical status already yesterday. She was able to notify the family to come see the patient. Palliative medicine consult pending, message sent to Dr. Belcher as well. 03/05 -patient was made comfort care yesterday. Started on IV morphine. Patient passed peacefully this morning, with her family present. Cardiology consulted Review of echocardiogram now shows that she has critical aortic stenosis with a maximum velocity of 5.8 m/s and a mean pressure gradient of 84 mmHg, both of which are remarkably abnormal She does present in acute decompensated diastolic heart failure likely due to her aortic stenosis. Will need to discuss patient treatment preference ongoing with TAVR evaluation versus hospice care ultimately Discussed with grand daughter about TAVR evaluation and hospice - she said that she would let her to make the decision Pt said that she would like to get eval for the TAVR procedure because she would like to do it Discussed with cardiology that will arrange for outpatient follow for TAVR eval once patient is stable however given pt's dementia - not a good candidate for the procedure Also pt's clinical status not improving much Cardiology recommends palliative med. consultation Elevated troponin Type 2 RI due to acute decompensated diastolic heart failure likely due to her aortic stenosis Troponin elevated at 399, then 315 Cardiology following, as above Continued statin, metoprolol and coumadin Metabolic Alkalosis C02 > 45; 42-45 from 02/20-02/22; was 36 on presentation Possible related to diuretic Nephrology following acetazolamide - per nephrology Urine for urinary free cortisone and urinary cortisol, Renin/aldosterone ordered by nephrology Hypertension Patient found to be quite hypertensive in the ED Received IV Lasix, continued to closely monitor blood pressure diuretic treatment as above Continued Lisinopril 40mg BP stable during the admission History of A. fib on warfarin INR 2 today Continued coumadin 5 mg continued to monitor INR Continued Toprol Rate control CKD stage III Continued to monitor creatinine/renal function Total Time Total Time Spent Total Time Spent (In Minutes): 10 Discharge Plan Discharge Items Reason For Visit: HYPOXIA, ELEV. 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 Follow-up/Referrals: Giana Sanchez [Primary Care Provider] - Medications and DC Order Prescriptions: No Action guaifenesin [Mucinex] 600 mg Tablet Extended Release 12hr 600 mg PO BID venlafaxine 75 mg capsule,extended release 24hr 75 mg PO QAM Rx Instructions: take with 150mg to make 225mg total pravastatin 40 mg tablet 40 mg PO HS venlafaxine 150 mg capsule,extended release 24hr 150 mg PO QAM Rx Instructions: take with 75mg to make 225mg total levothyroxine 50 mcg tablet 50 mcg PO QAM lisinopril 10 mg tablet 5 mg PO QAM folic acid 1 mg Tablet 1 mg PO QAM furosemide 20 mg tablet 20 mg PO BID quetiapine 50 mg tablet 50 mg PO BID cholecalciferol (vitamin D3) [Vitamin D3] 5,000 unit Tablet 5,000 unit PO QAM warfarin 4 mg tablet 4 mg PO QPM metoprolol tartrate 25 mg tablet 12.5 mg PO BID Rx Instructions: 1/2 tablet dose Combivent Respimat 20-100 mcg/actuation mist 1 puff INHALATION BID biotin 10,000 mcg Tablet,Disintegrating 10,000 mcg PO DAILY acetaminophen 325 mg Tablet 650 mg PO Q4 MDD 3g PRN (Reason: Pain) ipratropium-albuterol 0.5 mg-3 mg(2.5 mg base)/3 mL Solution For Nebulization 3 ml INHALATION Q6H PRN (Reason: Shortness Of Breath Or Wheezing) Combivent Respimat 20-100 mcg/actuation mist 1 puff INHALATION .EVERY 2 HOURS PRN (Reason: Shortness Of Breath) dextromethorphan-guaifenesin [Tussin DM] 10-100 mg/5 mL Syrup 5 ml PO Q4H PRN (Reason: Cough) Icy Hot No Mess 16 % Liquid 1 ea TOPICAL BID PRN (Reason: knee pain) Admission Data Admit Date/Time: 02/19/22 15:44 Attending Provider: Maurice Mccarthy Admit Provider: Maurice Mccarthy Primary Care Provider: Giana Sanchez Other Providers: Bertrand Yost ; Yudith Belcher ; Maurice Mccarthy ; Regan Schultz
[2022-03-07 09:57] LABS: Creatinine, 24 hr Urine 0.31 g/24 h (0.50-2.15)
== END 2022-03-05 11:06 | disposition expired ==
LOC: ED 13:31 → 2E 15:44 → SUATTDRO 15:44 → 2E 20:38 → 3N 03-05 03:42
DX: E03.9 Hypothyroidism, unspecified; Z79.899 Other long term (current) drug therapy; U09.9 Post COVID-19 condition, unspecified; Z79.890 Hormone replacement therapy; E87.4 Mixed disorder of acid-base balance; I21.A1 Myocardial infarction type 2; I34.0 Nonrheumatic mitral (valve) insufficiency; R01.1 Cardiac murmur, unspecified; Z88.1 Allergy status to other antibiotic agents; I12.9 Hypertensive chronic kidney disease with stage 1 through stage 4 chronic kidney disease, or unspecified chronic kidney disease; J45.909 Unspecified asthma, uncomplicated; I48.21 Permanent atrial fibrillation; Z66 Do not resuscitate; F03.90 Unspecified dementia, unspecified severity, without behavioral disturbance, psychotic disturbance, mood disturbance, and anxiety; N18.32 Chronic kidney disease, stage 3b; F41.8 Other specified anxiety disorders; I35.2 Nonrheumatic aortic (valve) stenosis with insufficiency; N17.9 Acute kidney failure, unspecified; Z88.2 Allergy status to sulfonamides; E78.5 Hyperlipidemia, unspecified; J96.21 Acute and chronic respiratory failure with hypoxia; I50.33 Acute on chronic diastolic (congestive) heart failure; Z79.01 Long term (current) use of anticoagulants; Z87.891 Personal history of nicotine dependence; Z88.8 Allergy status to other drugs, medicaments and biological substances; Z51.5 Encounter for palliative care; Z88.0 Allergy status to penicillin; Z99.81 Dependence on supplemental oxygen